=== PATIENT | female | born 1950 | race Caucasian/White ===

== ENCOUNTER 2017-10-03 12:27 | Inpatient (IN) | payer OTHER ==
--- OUTSIDE RECORDS SUMMARY | 2017-10-03 12:30 | XMS REPORT ---
:1950 Author Organization [employer] Care Team Providers Name Role Phone Rocky Shoemakerh Provider Role Unavailable Allergies, Adverse Reactions, Alerts Substance Reaction Event Type N.K.D.A. Info Not Available Non Drug Allergy Problems Problem Type Condition Code Onset Dates Condition Status Assessment Controlled type 2 diabetes mellitus E11.9 Active without complication, without long-term current use of insulin Problem Rheumatoid arthritis involving M06.9 Active multiple sites, unspecified rheumatoid factor presence Problem Controlled type 2 diabetes mellitus E11.9 Active without complication, without long-term current use of insulin Problem HTN (hypertension), benign I10 Active Problem Mixed hyperlipidemia E78.2 Active Problem Venous insufficiency I87.2 Active Problem Gout, unspecified cause, unspecified M10.9 Active chronicity, unspecified site Problem Hypothyroidism, unspecified type E03.9 Active Problem Malignant neoplasm of right ovary C56.1 Active Problem Malignant neoplasm of left ovary C56.2 Active Assessment Malignant neoplasm of left ovary C56.2 Active Assessment Malignant neoplasm of right ovary C56.1 Active Assessment Rheumatoid arthritis involving M06.9 Active multiple sites, unspecified rheumatoid factor presence Assessment Hypothyroidism, unspecified type E03.9 Active Assessment Venous insufficiency I87.2 Active Assessment Mixed hyperlipidemia E78.2 Active Assessment Gout, unspecified cause, unspecified M10.9 Active chronicity, unspecified site Assessment HTN (hypertension), benign I10 Active Medications Medication Code Code Instructions Start End Status Dosage System Date Date Metronidazole [facility] 78962958464 0.75 % Active 1 application Externally to affected Twice a day area Minocycline-Acne NDC 0 Active not defined Care Products [place] 3 ND 79508319295 1000 MG Orally Active 1 capsule Once a day Metformin HCl ND 76039102255 500 MG Orally Active 1 tablet with BID a meal Levothyroxine ND 38090237352 112 MCG Orally Active 1 tablet on Sodium Once a day an empty stomach in the morning Baclofen ND 32825891481 10 MG Orally Active 1 tablet with Three times a food or milk day Allopurinol ND 09756270010 300 MG Orally Active 1 tablet Once a day Folic Acid [facility] 11107677070 1 MG Orally Active 1 tablet Once a day Gabapentin [facility] 19379458684 300 MG Orally Active 1 capsule Once a day before bedtime Pravastatin [facility] 95783182214 80 MG Orally Active 1 tablet Sodium Once a day Lisinopril-Hydroc [facility] 49780566916 20-25 MG Active 1 tablet hlorothiazide Orally Once a day Furosemide [facility] 75484882888 40 MG Orally Active 1 tablet Once a day Magnesium [facility] 98268842434 500 MG Orally Active 1 tablet with Once a day a meal Aspirin 81 [facility] 59778815543 81 MG Orally Active 1 tablet Once a day Duloxetine HCl [facility] 26827810852 30 MG Orally Active 1 capsule Once a day Spironolactone [facility] 68511590391 25 MG Orally Active 1 tablet with Once a day food Vitamin D [facility] 25868656424 1000 UNIT Active 1 capsule (Cholecalciferol) Orally Once a day Results No Known Results Summary Purpose eClinicalWorks Submission
[2017-10-03] MEDS ORDERED: NA CHLORIDE 0.9% 500 ML ONE (15:27)
[2017-10-03 15:50] LABS: Absolute Monocytes 0.3 K/uL (0.1-1.3); Absolute Neutrophil 0.3 K/uL (1.8-8.0); Basophils % 0.3 % (0-1.3); Eosinophils % 6.2 % (0-4.4); Hematocrit 29.3 % (36.0-45.0); Lymphocytes % 60.2 % (15.3-44.8); MCV 101.9 fL (80-100); MPV 9.9 fL (7.6-11.3); Monocytes % 18.3 % (3.3-12.3); RBC Red Blood Cell Count 2.88 M/uL (3.86-4.86)
[2017-10-03 16:04] LABS: Potassium 4.4 mEq/L (3.6-5.0)
[2017-10-03 16:10] LABS: Albumin 3.9 g/dL (3.2-5.5); Bilirubin Direct 0.1 mg/dL (0-0.2); Bilirubin Total 0.6 mg/dL (0.3-1.2); Protein, Total 7.1 g/dL (6.0-8.3)
[2017-10-03] MEDS ORDERED: ONDANSETRON 4 MG/2 ML VIAL ONE (16:30)
[2017-10-03 17:18] LABS: Urine White Blood Cell Casts OK
[2017-10-03 17:19] LABS: Anisocytosis 1+; Blood Morphology Comment NOTED (NOT SEEN); Hypochromasia 1+; Platelet Estimate ADEQ
[2017-10-03] MEDS ORDERED: NA CHLORIDE 0.9% 50 ML IV ONE (18:18)
[2017-10-03] MEDS ORDERED: CEFTRIAXONE 1000 MG/VIAL ONE (18:18)
[2017-10-03] MEDS ORDERED: NA CHLORIDE 0.9% 250 ML ONE (19:08)
[2017-10-03 21:08] LABS: Urine Blood NEGATIVE (NEG); Urine Glucose NEGATIVE (NEG); Urine Protein TRACE (NEG); Urine Specific Gravity 1.015 (1.005-1.030)
--- NOTE | 2017-10-03 21:14 | EDPHYS ---
Physician Documentation [facility] Name: Maria Del Carmen Carlisle Age: 67 yrs Sex: Female : 1950 Arrival Date: 10/03/2017 Time: 12:33 Bed 16 Private MD: ED Physician Darren Stafford HPI: 10/03 18:03 This 67 yrs old Female presents to ER via Wheelchair with complaints of kdr Abdominal Pain, Diarrhea. 18:03 The patient presents to the emergency department with nausea, that is mild. Onset: The kdr symptoms/episode began/occurred gradually. 18:04 Possible causes: unknown. The symptoms are aggravated by nothing. The symptoms are kdr alleviated by nothing. Associated signs and symptoms: Pertinent positives: abdominal pain. Severity of symptoms: At their worst the symptoms were mild in the emergency department the symptoms are unchanged. The patient has not experienced similar symptoms in the past. The patient has not recently seen a physician. Historical: - Allergies: 12:37 Codeine (Vomiting); hb - Home Meds: 10/04 07:00 chemotherapy [Active]; Metformin Oral [Active]; levothyroxine oral [Active]; rb1 Allopurinol Oral [Active]; gabapentin oral oral [Active]; - PMHx: 10:29 ovarian CA; ss 07:00 Hypothyroidism; back pain; brain aneurysm; rb1 - PSHx: 07:00 ovaries; fallopian tubes; brain; Knee surgery; rb1 - Immunization history:: Adult Immunizations up to date. - Social history:: Smoking status: Patient/guardian denies using tobacco. - Ebola Screening: : No symptoms or risks identified at this time. ROS: 10/03 18:04 Constitutional: Negative for fever, chills, and weight loss, Eyes: Negative for injury, kdr pain, redness, and discharge, ENT: Negative for injury, pain, and discharge, Neck: Negative for injury, pain, and swelling, Cardiovascular: Negative for chest pain, palpitations, and edema, Respiratory: Negative for shortness of breath, cough, wheezing, and pleuritic chest pain, Back: Negative for injury and pain, : Negative for injury, bleeding, discharge, and swelling, MS/Extremity: Negative for injury and deformity, Skin: Negative for injury, rash, and discoloration, Psych: Negative for depression, anxiety, suicide ideation, homicidal ideation, and hallucinations, Allergy/Immunology: Negative for hives, rash, and allergies, Endocrine: Negative for neck swelling, polydipsia, polyuria, polyphagia, and marked weight changes, Hematologic/Lymphatic: Negative for swollen nodes, abnormal bleeding, and unusual bruising. Abdomen/GI: Positive for abdominal pain, nausea, Negative for vomiting, abdominal distension, anorexia, dysphagia, hematemesis, black/tarry stool, rectal pain, rectal bleeding, bowel incontinence. Neuro: Positive for headache, weakness, Negative for altered mental status, dizziness, gait disturbance, seizure activity, speech changes, syncope, near syncope, tingling, tinnitus, tremor, visual changes. Exam: 18:04 Constitutional: This is a well developed, well nourished patient who is awake, alert, kdr and in no acute distress. Head/Face: Normocephalic, atraumatic. Eyes: Pupils equal round and reactive to light, extra-ocular motions intact. Lids and lashes normal. Conjunctiva and sclera are non-icteric and not injected. Cornea within normal limits. Periorbital areas with no swelling, redness, or edema. Neck: Trachea midline, no thyromegaly or masses palpated, and no cervical lymphadenopathy. Supple, full range of motion without nuchal rigidity, or vertebral point tenderness. No Meningismus. Chest/axilla: Normal chest wall appearance and motion. Nontender with no deformity. No lesions are appreciated. Cardiovascular: Regular rate and rhythm with a normal S1 and S2. No gallops, murmurs, or rubs. Normal PMI, no JVD. No pulse deficits. Respiratory: Lungs have equal breath sounds bilaterally, clear to auscultation and percussion. No rales, rhonchi or wheezes noted. No increased work of breathing, no retractions or nasal flaring. Back: No spinal tenderness. No costovertebral tenderness. Full range of motion. Skin: Warm, dry with normal turgor. Normal color with no rashes, no lesions, and no evidence of cellulitis. MS/ Extremity: Pulses equal, no cyanosis. Neurovascular intact. Full, normal range of motion. Neuro: Awake and alert, GCS 15, oriented to person, place, time, and situation. Cranial nerves II-XII grossly intact. Motor strength 5/5 in all extremities. Sensory grossly intact. Cerebellar exam normal. Normal gait. Psych: Awake, alert, with orientation to person, place and time. Behavior, mood, and affect are within normal limits. 18:04 Abdomen/GI: Inspection: obese Bowel sounds: active, diminished, in all quadrants, Palpation: soft, mild abdominal tenderness, in all quadrants. Vital Signs: 12:37 BP 103 / 60; Pulse 85; Resp 20; Temp 97.6; Pulse Ox 100% on R/A; Weight 104.33 kg; hb Height 5 ft. 3 in. (160.02 cm); Pain 5/10; 17:06 BP 114 / 53; Pulse 82; Resp 16; Pulse Ox 97% on R/A; mb3 18:00 BP 112 / 51; Pulse 82; Resp 18; Pulse Ox 99% on R/A; mb3 19:00 BP 126 / 59; Pulse 85; Resp 18; Pulse Ox 97% on R/A; mb3 20:00 BP 114 / 61; Pulse 78; Resp 18; Pulse Ox 95% on R/A; mb3 23:30 BP 105 / 50; Pulse 84; Resp 18; Pulse Ox 97% on R/A; mb3 06/12 01:00 BP 105 / 50; Pulse 72; Resp 18 S; Pulse Ox 94% on R/A; bs1 02:00 BP 111 / 45; Pulse 78; Resp 18 S; Pulse Ox 98% on R/A; bs1 03:00 BP 112 / 47; Pulse 78; Resp 17; Pulse Ox 95% on R/A; bs1 04:00 BP 109 / 51; Pulse 78; Resp 18 S; Pulse Ox 95% on R/A; bs1 05:00 BP 121 / 49; Pulse 76; Resp 16; Pulse Ox 97% on R/A; bs1 06:00 BP 118 / 50; Pulse 76; Resp 16 S; Temp 97.8(O); Pulse Ox 95% on R/A; bs1 07:00 BP 113 / 56; Pulse 75; Resp 19; Pulse Ox 97% on R/A; Pain 6/10; rb1 08:28 BP 123 / 53; Pulse 73; Resp 20; Pulse Ox 94% on R/A; mh5 10:03 BP 116 / 76; Pulse 91; Resp 17; Pulse Ox 98% on R/A; mh5 11:00 BP 119 / 61; Pulse 102; Resp 19; Pulse Ox 98% on R/A; rb1 12:01 BP 120 / 72; Pulse 74; Resp 18; Pulse Ox 97% on R/A; mh5 13:48 BP 108 / 58; Pulse 76; Resp 17; Pulse Ox 95% on R/A; mh5 14:39 BP 120 / 66; Pulse 99; Resp 18; Pulse Ox 99% ; rb1 10/03 12:37 Body Mass Index 40.74 (104.33 kg, 160.02 cm) hb MDM: 10/03 18:04 Data reviewed: vital signs, nurses notes. Counseling: I had a detailed discussion with [facility] the patient and/or guardian regarding: the historical points, exam findings, and any diagnostic results supporting the discharge/admit diagnosis, lab results, radiology results. Physician consultation:. 21:14 Patient medically screened. [facility] 10/03 15:20 Order name: Basic Metabolic Panel; Complete Time: 17:00 [facility] 10/03 15:20 Order name: CBC with Diff; Complete Time: 17:28 [facility] 10/03 20:32 Interpretation: WBC 1.7. [facility] 10/03 15:20 Order name: Creatinine for Radiology; Complete Time: 17:00 [facility] 10/03 15:20 Order name: Hepatic Function; Complete Time: 17:00 [facility] 10/03 15:20 Order name: Lipase; Complete Time: 17:00 [facility] 10/03 16:06 Order name: CBC Smear Scan; Complete Time: 17:28 EDMS 10/03 18:01 Order name: Blood Culture Adult (2) [facility] 10/03 18:01 Order name: Urine Culture [facility] 10/03 19:08 Order name: Urine Dipstick--Ancillary (enter results); Complete Time: 12:08 ms 10/04 12:11 Order name: CBC with Diff [facility] 10/04 12:11 Order name: Comprehensive Metabolic Panel [facility] 10/03 15:20 Order name: IV Saline Lock; Complete Time: 19:33 [facility] 10/03 15:20 Order name: Labs collected and sent; Complete Time: 19:34 [facility] 10/03 15:20 Order name: Urine Dipstick-Ancillary (obtain specimen); Complete Time: 19:34 [facility] 10/04 08:46 Order name: Diet Regular; Complete Time: 08:47 10/04 11:33 Order name: Diet Regular; Complete Time: 11:33 [facility] 10/04 12:11 Order name: CT Stone Protocol [facility] 10/04 12:26 Order name: CONS Physician Consult EDMS 10/03 17:27 Order name: PO challenge; Complete Time: 01:19 kdr 10/03 18:26 Order name: Straight Cath - Urine; Complete Time: 18:26 kr2 Administered Medications: 15:30 Drug: NS 0.9% 500 ml Route: IV; Rate: bolus; Site: right antecubital; mb3 10/04 06:03 Follow up: IV Status: Completed infusion bs1 10/03 17:35 Drug: Zofran 4 mg Route: IVP; Site: right antecubital; mb3 23:42 Follow up: Response: No adverse reaction mb3 19:15 Drug: Rocephin - (cefTRIAXone) 1 grams Route: IVPB; Infused Over: 30 mins; Site: right mb3 antecubital; 10/04 06:02 Follow up: IV Status: Completed infusion bs1 10/03 23:30 Drug: Flagyl 500 mg Volume: 100 ml; Route: IVPB; Rate: 200 ml/hr; Infused Over: 30 mb3 mins; Site: right antecubital; 10/04 06:01 Follow up: IV Status: Completed infusion bs1 11:38 Drug: Zofran 4 mg Route: IVP; Site: right antecubital; rb1 12:00 Follow up: Response: No adverse reaction; Nausea is decreased rb1 12:50 Drug: NS 0.9% 500 ml Route: IV; Rate: bolus; Site: right antecubital; rb1 15:22 Follow up: IV Status: Infusion continued upon admission rb1 12:50 Drug: Rocephin - (cefTRIAXone) 1 grams Route: IVPB; Infused Over: 30 mins; Site: right rb1 antecubital; 13:20 Follow up: Response: No adverse reaction; IV Status: Completed infusion rb1 12:50 Drug: Phenergan 12.5 mg Route: IVP; Site: right antecubital; rb1 13:09 Follow up: Response: No adverse reaction; Nausea is decreased rb1 18:38 Not Given (Bolus was infusing upon admission): NS 0.9% 1000 ml IV at 125 ml/hr rb1 continuous Disposition: 10/04/17 12:14 Hospitalization ordered by Kobe Fisher for Inpatient Admission. Preliminary diagnosis are Nausea and vomiting, Abdominal tenderness, Cystitis, Neutropenia, Anemia, unspecified. - Bed requested for Telemetry/MedSurg (Inpatient). - Status is Inpatient Admission. rb1 - Condition is Fair. - Problem is new. - Symptoms have improved. UTI on Admission? Yes Signatures: Dispatcher [facility] Toshia Henry, RN RN Darren Wellington MD MD cha Rittger, Kevin, MD MD [facility] Shara Rowley RN RN Lala Anderson RN RN Malini Cabello RN RN rb1 Colleen Moore RN RN Kamala Bright RN RN kr2 Talat Oliveira RN RN mb3 Federica Sanches RN bs1 Corrections: (The following items were deleted from the chart) 10/03 19:01 15:49 URINE DIPSTICK--ANCILLARY+U.LAB.BRZ ordered. [facility] 19:01 16:04 URINE DIPSTICK--ANCILLARY+U.LAB.BRZ reviewed. [facility] 19:02 15:20 UA MICROSCOPIC+U.LAB.BRZ ordered. [facility] 19:02 15:54 Urine Culture ordered. [facility] 19:02 16:04 UA MICROSCOPIC+U.LAB.BRZ reviewed. [facility] 10/04 12:13 10/03 21:14 10/03/2017 21:14 Transfer ordered to Other Acute Care Facility. Diagnosis kim is Neutropenia; Urinary tract infection, site not specified. Reason for transfer: Higher level of care. Accepting physician is Accepting MD. Condition is Fair. Problem is new. Symptoms have improved. [facility] 10/04 12:30 12:14 Hospitalization Ordered by Kobe Fisher DO for Inpatient Admission. Preliminary kim diagnosis is Nausea and vomiting; Abdominal tenderness; Cystitis. Bed requested for Telemetry/MedSurg (Inpatient). Status is Inpatient Admission. Condition is Fair. Problem is new. Symptoms have improved. UTI on Admission? Yes. kim 14:25 12:30 10/04/2017 12:14 Hospitalization Ordered by Kobe Fisher DO for Inpatient dw Admission. Preliminary diagnosis is Nausea and vomiting; Abdominal tenderness; Cystitis; Neutropenia; Anemia, unspecified. Bed requested for Telemetry/MedSurg (Inpatient). Status is Inpatient Admission. Condition is Fair. Problem is new. Symptoms have improved. UTI on Admission? Yes. [facility] 15:22 14:25 10/04/2017 12:14 Hospitalization Ordered by Kobe Fisher DO for Inpatient rb1 Admission. Preliminary diagnosis is Nausea and vomiting; Abdominal tenderness; Cystitis; Neutropenia; Anemia, unspecified. Bed requested for Telemetry/MedSurg (Inpatient). Status is Inpatient Admission. Condition is Fair. Problem is new. Symptoms have improved. UTI on Admission? Yes. dw
--- NOTE | 2017-10-03 21:14 | ER ---
Nurse's Notes [facility] Name: Maria Del Carmen Carlisle Age: 67 yrs Sex: Female : 1950 Arrival Date: 10/03/2017 Time: 12:33 Bed 16 Private MD: Diagnosis: Nausea and vomiting;Abdominal tenderness;Cystitis;Neutropenia;Anemia, unspecified Presentation: 10/03 12:33 Presenting complaint: Patient states: N/V/D and abdominal pain x 1 week. Pt is being hb treated at [facility] for ovarian CA, had last round of chemo Wednesday 09/27. Transition of care: patient was not received from another setting of care. Onset of symptoms was September 27, 2017. Risk Assessment: Do you want to hurt yourself or someone else? Patient reports no desire to harm self or others. Initial Sepsis Screen: Does the patient meet any 2 criteria? No. Patient's initial sepsis screen is negative. Does the patient have a suspected source of infection? No. Patient's initial sepsis screen is negative. Care prior to arrival: None. 12:33 Method Of Arrival: Wheelchair hb 12:33 Acuity: MAYRA 3 hb Historical: - Allergies: 12:37 Codeine (Vomiting); hb - Home Meds: 10/04 07:00 chemotherapy [Active]; Metformin Oral [Active]; levothyroxine oral [Active]; rb1 Allopurinol Oral [Active]; gabapentin oral oral [Active]; - PMHx: 10:29 ovarian CA; ss 07:00 Hypothyroidism; back pain; brain aneurysm; rb1 - PSHx: 07:00 ovaries; fallopian tubes; brain; Knee surgery; rb1 - Immunization history:: Adult Immunizations up to date. - Social history:: Smoking status: Patient/guardian denies using tobacco. - Ebola Screening: : No symptoms or risks identified at this time. Screenin/11 16:25 Abuse screen: Denies threats or abuse. Nutritional screening: No deficits noted. mb3 Tuberculosis screening: No symptoms or risk factors identified. Fall Risk No fall in past 12 months (0 pts). Secondary diagnosis (15 points) IV access (20 points). Ambulatory Aid- Crutches/Cane/Walker (15 pts). Gait- Weak (10 pts.). Mental Status- Oriented to own ability (0 pts). Total Epperson Fall Scale indicates High Risk Score (45 or more points). Side Rails Up X 2 Placed Close to Nursing Station Frequent Obs/Assessments Occuring Family Present and informed to notify staff if the need to leave the bedside As available patient and family educated on Fall Prevention Program and Strategies. Assessment: 16:02 Reassessment: Dr. Mehta notified of critical lab value WBC 1.7. ss 17:00 General: Appears uncomfortable, ill, obese, well groomed, Behavior is calm, mb3 cooperative, appropriate for age. Pain: Complains of pain in back and abdomen. Neuro: Level of Consciousness is awake, alert, obeys commands, Oriented to person, place, time, situation, Appropriate for age. Cardiovascular: No deficits noted. Heart tones present Capillary refill < 3 seconds Patient's skin is warm and dry. Pulses are palpable in right radial artery, right dorsalis pedis artery, left radial artery and left dorsalis pedis artery. Respiratory: Airway is patent Respiratory effort is even, unlabored, Respiratory pattern is regular, symmetrical, Breath sounds are clear bilaterally. GI: Bowel sounds present X 4 quads. Abd is soft Abdomen is tender to palpation X 4 quads. Reports upper abdominal pain, nausea, vomiting. : Urine is cloudy. Derm: No signs and/or symptoms reported regarding the dermatologic system. 19:00 Reassessment: No changes from previously documented assessment. Patient and/or family mb3 updated on plan of care and expected duration. Pain level reassessed. Patient is alert, oriented x 3, equal unlabored respirations, skin warm/dry/pink. 21:00 Reassessment: No changes from previously documented assessment. Patient and/or family mb3 updated on plan of care and expected duration. Pain level reassessed. Patient is alert, oriented x 3, equal unlabored respirations, skin warm/dry/pink. 22:59 Reassessment: Dr Mehta called and requested pt be given Flagyl iv while we await fc transfer. 23:00 Reassessment: No changes from previously documented assessment. Patient and/or family mb3 updated on plan of care and expected duration. Pain level reassessed. Patient is alert, oriented x 3, equal unlabored respirations, skin warm/dry/pink. 10/04 00:18 Reassessment: Unable to obtain a bed at [facility]. Dr Mehta states that he fc will attempt again in the am if ok with family. Discussed with pt and daughter who agree with this. Pt to be transferred to regular hospital bed for comfort and [facility] contacted in the morning. 01:00 Reassessment: Report received from ORQUIDEA Gilliland. bs1 01:00 General: Appears in no apparent distress. uncomfortable, ill, obese, well groomed, bs1 Behavior is calm, cooperative, appropriate for age, quiet. Pain: Complains of pain in abdomen and back. Neuro: Level of Consciousness is awake, alert, obeys commands, Oriented to person, place, time, situation, Appropriate for age. Cardiovascular: Denies chest pain, Heart tones S1 S2 present Capillary refill < 3 seconds Patient's skin is warm and dry. Pulses are palpable in left dorsalis pedis artery and left radial artery and right dorsalis pedis artery and right radial artery. Respiratory: Airway is patent Trachea midline Respiratory effort is even, unlabored, Respiratory pattern is regular, symmetrical, Breath sounds are clear bilaterally. GI: Abdomen is round Bowel sounds present X 4 quads. Abd is soft Abdomen is tender to palpation X 4 quads. Reports upper abdominal pain, nausea, vomiting. : Urine is cloudy. Derm: No signs and/or symptoms reported regarding the dermatologic system. Musculoskeletal: Circulation, motion, and sensation intact. Capillary refill < 3 seconds, Range of motion: intact in all extremities. 01:30 Reassessment: Patients daughter left for the night, will be back in the morning, left bs1 number to call if anything happens, at [phone]. 04:00 Reassessment: Patient appears in no apparent distress at this time. Patient and/or bs1 family updated on plan of care and expected duration. Pain level reassessed. Patient is alert, oriented x 3, equal unlabored respirations, skin warm/dry/pink. Reverse isolation sign on door. 04:30 Reassessment: Patient appears in no apparent distress at this time. Patient and/or bs1 family updated on plan of care and expected duration. Pain level reassessed. Patient is alert, oriented x 3, equal unlabored respirations, skin warm/dry/pink. Patient states feeling better. Patient states symptoms have improved. 05:45 Reassessment: Patient appears in no apparent distress at this time. Patient and/or bs1 family updated on plan of care and expected duration. Pain level reassessed. Patient is alert, oriented x 3, equal unlabored respirations, skin warm/dry/pink. Patient denies pain at this time. 06:15 Reassessment: Patient sleeping. No further needs at this time. bs1 07:00 General: Appears in no apparent distress. comfortable, Behavior is calm, cooperative. rb1 Pain: Complains of pain in abdomen Pain currently is 6 out of 10 on a pain scale. Neuro: Level of Consciousness is awake, alert, obeys commands, Oriented to person, place, time, situation. Cardiovascular: Capillary refill < 3 seconds is brisk in bilateral fingers. Respiratory: Airway is patent Respiratory effort is even, unlabored, Respiratory pattern is regular, symmetrical. Derm: Skin is pink, warm \T\ dry. 07:00 General: pt. refused pain medication at this time.. rb1 08:00 Reassessment: Patient appears in no apparent distress at this time. Patient and/or rb1 family updated on plan of care and expected duration. Pain level reassessed. Patient is alert, oriented x 3, equal unlabored respirations, skin warm/dry/pink. 08:12 Reassessment: Carolina from [facility] called to inform us that the admission approval rb1 is still pending. Notified provider and Nata, community relations specialist. 08:45 Reassessment: daughter at bedside. Pt. and family updated on POC. rb1 08:55 Reassessment: Called [employer] and left a message requesting a new bed because rb1 the HOB will not elevate on her current bed. 10:16 Reassessment: Dr. [facility] spoke with Akua, patient's daugher who come to the ss agreement to go ahead and admit patient here and continue to attempt to transfer to continuity of care to [facility]. Still awaiting administrative approval from [facility] who also reports they are currently on diversion. 11:15 Reassessment: Patient appears in no apparent distress at this time. No changes from rb1 previously documented assessment. family at bedside. 12:13 Reassessment: Patient appears in no apparent distress at this time. Patient and/or rb1 family updated on plan of care and expected duration. Pain level reassessed. Patient is alert, oriented x 3, equal unlabored respirations, skin warm/dry/pink. Family at bedside. 13:10 Reassessment: Patient appears in no apparent distress at this time. No changes from rb1 previously documented assessment. 14:10 Reassessment: Patient appears in no apparent distress at this time. Patient and/or rb1 family updated on plan of care and expected duration. Pain level reassessed. Patient is alert, oriented x 3, equal unlabored respirations, skin warm/dry/pink. pt./family updated on POC. 14:47 Reassessment: Called report to ORQUIDEA Montes. Information from the [facility] was given. All rb1 questions asked and answered. 15:09 Reassessment: Patient appears in no apparent distress at this time. Patient and/or rb1 family updated on plan of care and expected duration. Pain level reassessed. Patient is alert, oriented x 3, equal unlabored respirations, skin warm/dry/pink. Started a new 22 g L AC; pt. tolerated well. Vital Signs: 10/03 12:37 BP 103 / 60; Pulse 85; Resp 20; Temp 97.6; Pulse Ox 100% on R/A; Weight 104.33 kg; hb Height 5 ft. 3 in. (160.02 cm); Pain 5/10; 17:06 BP 114 / 53; Pulse 82; Resp 16; Pulse Ox 97% on R/A; mb3 18:00 BP 112 / 51; Pulse 82; Resp 18; Pulse Ox 99% on R/A; mb3 19:00 BP 126 / 59; Pulse 85; Resp 18; Pulse Ox 97% on R/A; mb3 20:00 BP 114 / 61; Pulse 78; Resp 18; Pulse Ox 95% on R/A; mb3 23:30 BP 105 / 50; Pulse 84; Resp 18; Pulse Ox 97% on R/A; mb3 06/12 01:00 BP 105 / 50; Pulse 72; Resp 18 S; Pulse Ox 94% on R/A; bs1 02:00 BP 111 / 45; Pulse 78; Resp 18 S; Pulse Ox 98% on R/A; bs1 03:00 BP 112 / 47; Pulse 78; Resp 17; Pulse Ox 95% on R/A; bs1 04:00 BP 109 / 51; Pulse 78; Resp 18 S; Pulse Ox 95% on R/A; bs1 05:00 BP 121 / 49; Pulse 76; Resp 16; Pulse Ox 97% on R/A; bs1 06:00 BP 118 / 50; Pulse 76; Resp 16 S; Temp 97.8(O); Pulse Ox 95% on R/A; bs1 07:00 BP 113 / 56; Pulse 75; Resp 19; Pulse Ox 97% on R/A; Pain 6/10; rb1 08:28 BP 123 / 53; Pulse 73; Resp 20; Pulse Ox 94% on R/A; mh5 10:03 BP 116 / 76; Pulse 91; Resp 17; Pulse Ox 98% on R/A; mh5 11:00 BP 119 / 61; Pulse 102; Resp 19; Pulse Ox 98% on R/A; rb1 12:01 BP 120 / 72; Pulse 74; Resp 18; Pulse Ox 97% on R/A; mh5 13:48 BP 108 / 58; Pulse 76; Resp 17; Pulse Ox 95% on R/A; mh5 14:39 BP 120 / 66; Pulse 99; Resp 18; Pulse Ox 99% ; rb1 10/03 12:37 Body Mass Index 40.74 (104.33 kg, 160.02 cm) hb ED Course: 10/03 12:33 Patient arrived in ED. hb 12:36 Triage completed. hb 12:36 Arm band placed on left wrist. hb 14:55 Gee Mehta MD is Attending Physician. kdr 15:22 Talat Oliveira, ORQUIDEA is Primary Nurse. mb3 15:30 Inserted saline lock: 22 gauge in right antecubital area, using aseptic technique. mb3 Blood collected. 17:03 Patient has correct armband on for positive identification. Bed in low position. Call mb3 light in reach. Side rails up X 1. 18:26 Straight cath inserted, using sterile technique, Specimen obtained. Returned clear kr2 yellow urine. Patient tolerated well. 10/04 09:48 Called [facility] and spoke to Carolina the hospital is now diversion. Was told that ag no hospital beds available and even if administration approval was given she has to wait until a bed is available. Was advise to change the patient to inpatient until a bed came open. 12:08 Attending Physician role handed off by Gee Mehta MD [facility] 12:08 [facility] MD is Attending Physician. kim 12:13 Kobe Fisher DO is Hospitalizing Provider. kim 12:23 CT completed. Patient tolerated procedure well. Patient moved to CT via wheelchair. sw Patient moved back from CT. Patient moved back from radiology. 12:25 CT Stone Protocol In Process Unspecified. EDMS 15:09 Inserted saline lock: 22 gauge in left antecubital area, using aseptic technique. rb1 15:10 IV discontinued, intact, bleeding controlled, No redness/swelling at site. Pressure rb1 dressing applied, Right AC. 15:22 No provider procedures requiring assistance completed. rb1 Administered Medications: 10/03 15:30 Drug: NS 0.9% 500 ml Route: IV; Rate: bolus; Site: right antecubital; mb3 10/04 06:03 Follow up: IV Status: Completed infusion bs1 10/03 17:35 Drug: Zofran 4 mg Route: IVP; Site: right antecubital; mb3 23:42 Follow up: Response: No adverse reaction mb3 19:15 Drug: Rocephin - (cefTRIAXone) 1 grams Route: IVPB; Infused Over: 30 mins; Site: right mb3 antecubital; 10/04 06:02 Follow up: IV Status: Completed infusion bs1 10/03 23:30 Drug: Flagyl 500 mg Volume: 100 ml; Route: IVPB; Rate: 200 ml/hr; Infused Over: 30 mb3 mins; Site: right antecubital; 10/04 06:01 Follow up: IV Status: Completed infusion bs1 11:38 Drug: Zofran 4 mg Route: IVP; Site: right antecubital; rb1 12:00 Follow up: Response: No adverse reaction; Nausea is decreased rb1 12:50 Drug: NS 0.9% 500 ml Route: IV; Rate: bolus; Site: right antecubital; rb1 15:22 Follow up: IV Status: Infusion continued upon admission rb1 12:50 Drug: Rocephin - (cefTRIAXone) 1 grams Route: IVPB; Infused Over: 30 mins; Site: right rb1 antecubital; 13:20 Follow up: Response: No adverse reaction; IV Status: Completed infusion rb1 12:50 Drug: Phenergan 12.5 mg Route: IVP; Site: right antecubital; rb1 13:09 Follow up: Response: No adverse reaction; Nausea is decreased rb1 18:38 Not Given (Bolus was infusing upon admission): NS 0.9% 1000 ml IV at 125 ml/hr rb1 continuous Output: 11:45 Gastric: 150ml (Emesis); Total: 150ml. rb1 Outcome: 10/03 21:14 ER care complete, transfer ordered by . kdr 10/04 12:14 Decision to Hospitalize by Provider. kim 15:22 Patient left the ED. rb1 15:22 Admitted to Tele accompanied by tech, family with patient, via wheelchair, room 427, rb1 with chart, Report called to ORQUIDEA Montes 15:22 Condition: stable 15:22 Instructed on the need for admit. Signatures: Dispatcher [employer] EDMS [facility] MD MD cha Rittger, Kevin, MD MD kdr Chretien, Felicia, RN RN Lala Anderson, RN RN Angel Sullivan PA PA jr8 Nata Love Shannon sw Barber, Rebecca, RN RN rb1 Colleen Moore, RN Cely Lund Kamala Joaquin RN RN kr2 Federica Sanches RN RN bs1 Talat Oliveira RN RN mb3 Corrections: (The following items were deleted from the chart) 10/03 19:02 17:08 Urine Culture drawn and sent. jr8 [facility] 10/04 18:29 15:09 Inserted saline lock: 22 gauge in right antecubital area, using aseptic rb1 technique. rb1 18:32 14:10 Reassessment: Patient appears in no apparent distress at this time. Patient rb1 and/or family updated on plan of care and expected duration. Pain level reassessed. Patient is alert, oriented x 3, equal unlabored respirations, skin warm/dry/pink. rb1
[2017-10-03] MEDS ORDERED: METRONIDAZOLE 500mg IVPB 500 MG/100 ML BAG IV ONE (23:30)
[2017-10-04] MEDS ORDERED: ONDANSETRON 4 MG/2 ML VIAL ONE ×2 (11:42→12:44)
--- NOTE | 2017-10-04 12:41 | RAD REPORT ---
EXAM DESCRIPTION: CT - Stone Protocol - 10/04/2017 12:25 pm CLINICAL HISTORY: Flank pain. History of ovarian neoplasia. COMPARISON: None. TECHNIQUE: Axial images were obtained without oral or IV contrast. Lack of contrast limits solid org an and vascular assessment. The [id number] spans the entirety of the system partially obscuring uppermost abdomen and lung bases. Coronal reformatted images were obtained and reviewed. All CT scans are performed using dose optimization technique as appropriate and may include automated exposure control or mA/KV adjustment according to patient size. FINDINGS: The lower lung price are clear. Cholecystectomy clips. Imaged portions of the liver and spleen show no suspicious findings on non-contrast imaging. The panc reas and adrenal glands are normal Slight pericolonic inflammatory changes are noted in the left upper quadrant surrounding the splenic flexure the colon. No bowel obstruction, free air, free fluid or abscess. The appendix is not identified as a discrete s tructure, however, no secondary findings of appendicitis are identified. 11-12 mm lymph node is seen along the left pelvic sidewall. 6 mm right pelvic sidewall lymph node. No soft tissue implants seen. Several subcutaneous soft tissue implants in the anterior abdominal fat i s likely related to injections. IMPRESSION: Slight inflammation in the left upper quadrant pericolonic fat noted. A minimal colitis is possible. Pelvic sidewall lymph nodes as detailed. No comparison is available to assess stability.
[2017-10-04] MEDS ORDERED: NA CHLORIDE 0.9% 500 ML ONE (12:44)
[2017-10-04] MEDS ORDERED: CEFTRIAXONE/SWI 1gm 1 GM/10 ML SYR ONE (12:45)
[2017-10-04] MEDS ORDERED: ACETAMINOPHEN 500 MG TAB PO PRN (12:55)
[2017-10-04] MEDS ORDERED: PROMETHAZINE 25 MG/ML VIAL IV PRN (12:55)
[2017-10-04] MEDS ORDERED: SODIUM CHLORIDE 0.9% 10ML INJ IV PRN (12:55)
[2017-10-04] MEDS ORDERED: ONDANSETRON 4 MG/2 ML VIAL IV PRN (12:55)
--- NOTE | 2017-10-04 13:10 | P.HP ---
Certification for Inpatient Patient admitted to: Inpatient With expected LOS: >2 Midnights Patient will require the following post-hospital care: None Practitioner: I am a practitioner with admitting privileges, knowledge of patient current condition, hospital course, and medical plan of care. Services: Services provided to patient in accordance with Admission requirements found in Title 42 Section 412.3 of the Code of Federal Regulations Patient History Date of Service: 10/04/17 Primary Care Provider: Dr. Shoemaker; Oncology-[facility]-Dr. Ashleigh Garcia Reason for admission: Nausea, vomiting, abdominal pain History of Present Illness: 67-year-old female present emergency room with nausea, vomiting, diarrhea and abdominal pain. Patient has significant past medical history of ovarian cancer. Patient with nausea, vomiting, diarrhea and abdominal pain for over 1 week. This has gotten worse throughout the week. Patient came to the ER for evaluation yesterday. The patient was evaluated and found to have UTI. Patient also neutropenic with a white count of 1.7. Hemoglobin 9.5. Electrolytes showed no elevation in LFT and lipase. ER spoke to [facility] about transfer. The ER kept the patient as [facility] had no beds. Today the ER spoke to [facility] again. Still no bed available. Therefore the patient will be admitted for continuation of care until a bed is available and transfer can be complete. Today the patient still with some nausea. Patient appears dry. CT scan was done to further assess. Patient found to have left upper quadrant mild colitis. Pelvic lymph nodes noted. Lower lung price appeared clear. Urine culture pending shows Gram negative rods. Blood cultures pending. Allergies codeine Allergy (Verified 10/04/17 13:09) Nausea/Vomiting Home medications list reviewed: Yes - Past Medical/Surgical History Diabetic: No -: Ovarian cancer -: History of AVM with repair -: Brain surgery for AVM -: Hysterectomy -: Tubal ligation -: Right knee surgery -: Cholecystectomy Psychosocial/ Personal History: The patient is . She has 4 children. - Family History Father -: Cancer (Leukemia) Mother -: Cancer (Breast and lung cancer) - Social History Smoking Status: Never smoker Alcohol use: Yes CD- Drugs: No Caffeine use: Yes Place of Residence: Home Review of Systems General: Weakness, Malaise, Unremarkable Eyes: Unremarkable ENT: Unremarkable Respiratory: Unremarkable Cardiovascular: Light Headedness, As per HPI Gastrointestinal: Nausea, Vomiting, Abdominal Pain, Diarrhea, As per HPI Genitourinary: As per HPI Musculoskeletal: Unremarkable Integumentary: Unremarkable Neurological: Unremarkable Lymphatics: Unremarkable Physical Examination - Physical Exam General: Alert, In no apparent distress, Oriented x3, Cooperative HEENT: Atraumatic, Other (Dry mucous membranes. Patient with alopecia) Neck: Supple, No Thyromegaly Respiratory: Clear to auscultation bilaterally, Normal air movement Cardiovascular: Normal pulses, Regular rate/rhythm Gastrointestinal: Normal bowel sounds, Soft and benign, Non-distended, No masses , No rebound, No guarding, Tenderness (No significant pain to deep palpation.) Musculoskeletal: No erythema, No tenderness, No warmth Integumentary: No tenderness/swelling, No erythema, No warmth, No cyanosis Neurological: Normal speech, Normal strength at 5/5 x4 extr, Normal tone, Normal affect Lymphatics: No axilla or inguinal lymphadenopathy - Studies Laboratory Data (last 24 hrs) 10/03/17 15:32: Creatinine 0.97 10/03/17 15:32: WBC 1.7 L*, Hgb 9.5 L, Hct 29.3 L, Plt Count 158 10/03/17 15:32: Sodium 137, Potassium 4.4, BUN 17, Creatinine 0.99, Glucose 107 , Total Bilirubin 0.6, AST 16, ALT 20, Alkaline Phosphatase 85, Lipase 16 L Assessment and Plan - Problems (Diagnosis) (1) Colitis Current Visit: Yes Status: Acute Plan: CT scan shows mild colitis to the left upper quadrant. Will cover with cefepime and Flagyl. Will evaluate for C. diff colitis. Will continue IV antibiotic therapy and IV fluid hydration. Will monitor closely. Once a bed is available at [facility] then the patient can be transferred. (2) UTI (urinary tract infection) Current Visit: Yes Status: Acute Plan: Urine culture shows Gram negative rods. Blood cultures obtained. Will continue IV antibiotic therapy as above. Qualifiers: Urinary tract infection type: site unspecified Hematuria presence: without hematuria Qualified Code(s): N39.0 - Urinary tract infection, site not specified (3) Neutropenia Current Visit: Yes Status: Acute Plan: Patient with neutropenia. Likely from infection. Provide Neupogen. Will discontinue Neupogen once white count above 2.0. Case discussed with Oncology Qualifiers: Neutropenia type: due to infection Qualified Code(s): D70.3 - Neutropenia due to infection (4) Ovarian cancer Current Visit: Yes Status: Chronic Plan: Patient with ovarian cancer. Currently treated at [facility]. Qualifiers: Laterality: unspecified laterality Qualified Code(s): C56.9 - Malignant neoplasm of unspecified ovary (5) Dehydration Current Visit: Yes Status: Acute Plan: Will provide IV fluid bolus. Will continue IV fluids. Will monitor and adjust appropriately. Discharge Plan: Home Plan to discharge in: 48 Hours - Advance Directives Does patient have a Living Will: No Does patient have a Durable POA for Healthcare: No - Code Status/Comfort Care Code Status Assessed: Yes Time Spent Managing Pts Care (In Minutes): 55
[2017-10-04 13:18] LABS: Potassium 4.4 mEq/L (3.6-5.0)
[2017-10-04 13:21] LABS: Albumin 4.2 g/dL (3.2-5.5); Bilirubin Total 0.7 mg/dL (0.3-1.2); Protein, Total 7.8 g/dL (6.0-8.3)
[2017-10-04 13:35] LABS: Absolute Lymphocytes (CBC) 1.4 K/uL (0.7-4.9); Absolute Monocytes 0.8 K/uL (0.1-1.3); Absolute Neutrophil 0.7 K/uL (1.8-8.0); Basophils % 0.3 % (0-1.3); Eosinophils % 2.8 % (0-4.4); Hematocrit 31.8 % (36.0-45.0); Lymphocytes % 45.7 % (15.3-44.8); MCH 33.3 pg (27.0-35.0); MPV 10.5 fL (7.6-11.3); Monocytes % 26.4 % (3.3-12.3); RBC Red Blood Cell Count 3.15 M/uL (3.86-4.86)
[2017-10-04] MEDS: METRONIDAZOLE 500mg IVPB 500 MG/100 ML BAG IV SCH (17:44)
[2017-10-04] MEDS: NA CHLORIDE 0.9% 1,000 ML IV SCH (17:45)
[2017-10-04] MEDS: ENOXAPARIN 40 MG/0.4 ML SQ SCH (17:45)
[2017-10-04 20:14] LABS: Platelet Estimate ADEQ
[2017-10-04 20:16] LABS: Blood Morphology Comment NOT SEEN (NOT SEEN)
[2017-10-05] MEDS: METRONIDAZOLE 500mg IVPB 500 MG/100 ML BAG IV SCH ×3 (00:35→18:40)
[2017-10-05] MEDS: NA CHLORIDE 0.9% 1,000 ML IV SCH ×4 (00:36→20:42)
[2017-10-05 06:37] LABS: Absolute Neutrophil 1.9 K/uL (1.8-8.0); Basophils % 0.3 % (0-1.3); Eosinophils % 2.3 % (0-4.4); Hematocrit 27.7 % (36.0-45.0); Lymphocytes % 39.8 % (15.3-44.8); MCH 33.2 pg (27.0-35.0); MCV 101.1 fL (80-100); MPV 10.2 fL (7.6-11.3); Monocytes % 19.2 % (3.3-12.3); RBC Red Blood Cell Count 2.74 M/uL (3.86-4.86)
[2017-10-05 07:17] LABS: Magnesium 1.6 mg/dL (1.8-2.5)
[2017-10-05] MEDS ORDERED: MAGNESIUM SULFATE 1 gm IVPB 1 GM/100 ML BAG IV ONE (07:52)
[2017-10-05] MEDS ORDERED: CEFEPIME/SWI 1gm 1 GM/10 ML SYR IV SCH (09:00)
[2017-10-05] MEDS ORDERED: CEFTRIAXONE/SWI 1gm 1 GM/10 ML SYR IV SCH (09:00)
[2017-10-05] MEDS ORDERED: CEFEPIME 1 GM/VIAL IV SCH (09:00)
[2017-10-05] MEDS ORDERED: TBO-FILGRASTIM 300 MCG/0.5 ML SYR SQ SCH (09:00)
[2017-10-05] MEDS ORDERED: MAGNESIUM CITRATE 300 ML BOT PO SCH (10:00)
[2017-10-05] MEDS: PANTOPRAZOLE 40 MG INJ IVP SCH (10:08)
[2017-10-05] MEDS: ENOXAPARIN 40 MG/0.4 ML SQ SCH (18:41)
[2017-10-05] MEDS: CEFEPIME/SWI 2gm 2 GM/20 ML SYR IV SCH (20:41)
[2017-10-06] MEDS: METRONIDAZOLE 500mg IVPB 500 MG/100 ML BAG IV SCH ×2 (00:24→09:20)
[2017-10-06 04:27] LABS: Absolute Lymphocytes (CBC) 2.6 K/uL (0.7-4.9); Absolute Monocytes 0.9 K/uL (0.1-1.3); Absolute Neutrophil 4.4 K/uL (1.8-8.0); Basophils % 0.2 % (0-1.3); Eosinophils % 1.3 % (0-4.4); Hematocrit 24.5 % (36.0-45.0); Lymphocytes % 32.8 % (15.3-44.8); MCV 101.1 fL (80-100); MPV 10.4 fL (7.6-11.3); Magnesium 1.8 mg/dL (1.8-2.5); Monocytes % 11.6 % (3.3-12.3); Potassium 4.3 mEq/L (3.6-5.0); RBC Red Blood Cell Count 2.42 M/uL (3.86-4.86)
[2017-10-06] MEDS ORDERED: MAGNESIUM SULFATE 1 gm IVPB 1 GM/100 ML BAG IV ONE (04:58)
[2017-10-06] MEDS: NA CHLORIDE 0.9% 1,000 ML IV SCH (05:00)
[2017-10-06] MEDS: CEFEPIME/SWI 2gm 2 GM/20 ML SYR IV SCH (09:14)
[2017-10-06] MEDS: PANTOPRAZOLE 40 MG INJ IVP SCH (09:15)
--- NOTE | 2017-10-06 13:20 | P.SSS ---
Patient History Date of Service: 10/06/17 Primary Care Provider: Dr. Shoemaker; Oncology-MD [place]-Dr. Ashleigh Garcia Reason for admission: Nausea, vomiting, abdominal pain Allergies codeine Allergy (Verified 10/04/17 13:09) Nausea/Vomiting Home Medications: Allopurinol [Zyloprim*] 300 mg PO DAILY 10/04/17 Baclofen [Lioresal*] 10 mg PO TID 10/04/17 Diclofenac Na [Voltaren D.r*] 75 mg PO DAILY PRN 10/04/17 Duloxetine [Cymbalta *] 30 mg PO DAILY 10/04/17 Folic Acid 1 mg PO DAILY 10/04/17 Furosemide [Lasix*] 40 mg PO DAILY 10/04/17 Gabapentin [Gralise] 300 mg PO DAILY 10/04/17 Levothyroxine [Synthroid*] 112 mcg PO [id number] 10/04/17 Lisinopril/Hydrochlorothiazide [Lisinopril-Hctz 20-12.5 mg Tab] 1 each PO DAILY 10/04/17 Metformin HCl [Glucophage*] 500 mg PO BIDWM 10/04/17 Pravastatin Sodium [Pravachol] 80 mg PO DAILY 10/04/17 Spironolactone [Aldactone*] 25 mg PO DAILY WITH BREAKFAST 10/04/17 Levofloxacin [Levaquin] 500 mg PO DAILY #10 tablet 10/06/17 metroNIDAZOLE [Flagyl] 500 mg PO Q8H #30 tablet 10/06/17 - Past Medical/Surgical History Diabetic: No -: Ovarian cancer -: History of AVM with repair -: diabetes -: hypothyroidism -: Brain surgery for AVM -: Hysterectomy -: Tubal ligation -: Right knee surgery -: Cholecystectomy Psychosocial/ Personal History: The patient is . She has 4 children. - Family History Father -: Cancer (Leukemia) Notes: leukemia Mother -: Cancer (Breast and lung cancer) - Social History Smoking Status: Never smoker Alcohol use: Yes CD- Drugs: No Caffeine use: Yes Place of Residence: Home Review of Systems 10-point ROS is otherwise unremarkable Physical Examination - Vital Signs Temperature: 97.6 F Blood Pressure: 108/54 Pulse: 69 Respirations: 18 Pulse Ox (%): 97 - Physical Exam General: Alert, In no apparent distress HEENT: Atraumatic, PERRLA, Mucous membr. moist/pink, EOMI, Sclerae nonicteric Neck: Supple, 2+ carotid pulse no bruit, No LAD, Without JVD or thyroid abnormality Respiratory: Clear to auscultation bilaterally, Normal air movement Cardiovascular: Regular rate/rhythm, Normal S1 S2 Gastrointestinal: Normal bowel sounds, No tenderness Musculoskeletal: No tenderness Integumentary: No rashes Neurological: Normal gait, Normal speech, Normal strength at 5/5 x4 extr, Normal tone, Normal affect Lymphatics: No axilla or inguinal lymphadenopathy - Studies Microbiology Data (last 24 hrs): 10/03/17 18:30 Catheterized Urine Graham Count - Final >100,000 CFU/ML. 10/03/17 18:30 Catheterized Urine - Final Escherichia Coli - Diagnosis (Problem(s)) (1) Colitis Onset Date: 10/05/17 Status: Resolved (2) UTI (urinary tract infection) Onset Date: 10/05/17 Status: Acute Qualifiers: Urinary tract infection type: site unspecified Hematuria presence: without hematuria Qualified Code(s): N39.0 - Urinary tract infection, site not specified (3) Ovarian cancer Onset Date: 10/05/17 Status: Chronic Qualifiers: Laterality: unspecified laterality Qualified Code(s): C56.9 - Malignant neoplasm of unspecified ovary Treatment Summary: All during the hospital stay patient remained stable The patient was initially admitted to the hospital for abdominal pain which was found to be secondary to colitis versus urinary tract infection. Patient was found to have UA which was consistent with positive nitrites and leukesterase. Urine culture was done which was positive for E. coli. Patient was initially started on cefepime and Flagyl given the abdominal pain and history of chemotherapy and concern for bacterial colitis. Patient had marked improvement in her symptoms and thus was switched over to oral antibiotics. Initially there was a attempt made to transfer patient to [facility] as she has been treated over there by the GI doctors and Oncology. However patient had resolution of her symptoms and there was still no bed available at [facility] and thus was made to discharge the patient home with follow up with her oncologist. Patient was being treated for urinary tract infection here along with colitis and thus was discharged home on p.o. antibiotics Levaquin and Flagyl. Patient was asked to follow up with oncology in about 1-2 days post discharge. - Disposition Disposition: ROUTINE DISCHARGE Condition: GOOD Patient Discharge Instructions: Please f.u with PCP in 1 to 2 weeks post discharge. Please f.u with Oncologist at [facility] in 1 to 2 days post discharge. New medication. Levaquin 500mg daily for 10 days. Flagyl 500mg q8h daily for 10 days. You had Ecoli in the urine culture which was Pansensitive to all antibiotics Diet: Regular Activity: Ad fatmata
== END 2017-10-06 11:47 | disposition home or self-care (01) | DRG 372 ==
LOC: ER 12:27 → ERHOLD 10-04 12:18 → 4TH 10-04 14:53
PROVIDERS: ADMIT Family Medicine; ATTEND Family Medicine
DX: A04.9 Bacterial intestinal infection, unspecified (principal); N39.0 Urinary tract infection, site not specified; C56.9 Malignant neoplasm of unspecified ovary; B96.20 Unspecified Escherichia coli [E. coli] as the cause of diseases classified elsewhere; D70.9 Neutropenia, unspecified; E86.0 Dehydration
CPT/HCPCS: 36415; 51702; 74176; 76377; 80048; 80053; 80076; 81003; 82962; 83690; 83735; 85025; 87040; 87077; 87086; 87088; 87186; 96361; 96365; 96366; 96375; 99285; C9113; J0692; J0696; J1650; J2405; J2550; J3475; J7030

== ENCOUNTER 2018-07-16 21:14 | Observation (INO) | payer OTHER ==
--- OUTSIDE RECORDS SUMMARY | 2018-07-16 21:17 | XMS REPORT ---
[...] End Status Dosage System Date Date Metronidazole [facility] 27927413153 0.75 % Active 1 application Externally to affected Twice a day area Minocycline-Acne NDC 0 Active not defined Care Products [place] 3 ND 27513671116 1000 MG Orally Active 1 capsule Once a day Metformin HCl ND 07856295261 500 MG Orally Active 1 tablet with BID a meal Levothyroxine ND 48548638599 112 MCG Orally Active 1 tablet on Sodium Once a day an empty stomach in the morning Baclofen ND 26925329370 10 MG Orally Active 1 tablet with Three times a food or milk day Allopurinol ND 67183228971 300 MG Orally Active 1 tablet Once a day Folic Acid [facility] 97531761248 1 MG Orally Active 1 tablet Once a day Gabapentin [facility] 66634570337 300 MG Orally Active 1 capsule Once a day before bedtime Pravastatin [facility] 75994826299 80 MG Orally Active 1 tablet Sodium Once a day Lisinopril-Hydroc [facility] 86371002340 20-25 MG Active 1 tablet hlorothiazide Orally Once a day Furosemide [facility] 66990529309 40 MG Orally Active 1 tablet Once a day Magnesium [facility] 38043814076 500 MG Orally Active 1 tablet with Once a day a meal Aspirin 81 [facility] 67927964983 81 MG Orally Active 1 tablet Once a day Duloxetine HCl [facility] 81312684836 30 MG Orally Active 1 capsule Once a day Spironolactone [facility] 35045749029 25 MG Orally Active 1 tablet with Once a day food Vitamin D [facility] 34136492459 1000 UNIT Active 1 capsule (Cholecalciferol) Orally Once a day Results No Known Results Summary Purpose eClinicalWorks Submission
--- OUTSIDE RECORDS SUMMARY | 2018-07-16 21:17 | XMS REPORT ---
:1950 Author Organization eClinicalWorks Care Team Providers Name Role Phone Navid Rebel Provider Role Unavailable Allergies No Known Allergies Problems Problem Type Condition Code Onset Dates Condition Status Problem Rheumatoid arthritis involving M06.9 Active multiple sites, unspecified rheumatoid factor presence Problem Controlled type 2 diabetes mellitus E11.9 Active without complication, without long-term current use of insulin Assessment Hypothyroidism, unspecified type E03.9 Active Problem HTN (hypertension), benign I10 Active Problem Mixed hyperlipidemia E78.2 Active Problem Venous insufficiency I87.2 Active Problem Gout, unspecified cause, unspecified M10.9 Active chronicity, unspecified site Problem Hypothyroidism, unspecified type E03.9 Active Problem Malignant neoplasm of right ovary C56.1 Active Problem Malignant neoplasm of left ovary C56.2 Active Medications Medication Code Code Instructions Start End Status Dosage System Date Date Levothyroxine [facility] 09670396244 112 MCG Orally Inactive 1 tablet Sodium Once a day on an empty stomach in the morning Levothyroxine ND 21129927978 100 MCG Orally Dec 07, Active 1 tablet Sodium Once a day 2017 on an empty stomach in the morning Results No Known Results Summary Purpose eClinicalWorks Submission
--- OUTSIDE RECORDS SUMMARY | 2018-07-16 21:17 | XMS REPORT ---
:1950 Author Organization eClinicalWorks Care Team Providers Name Role Phone Rebel Shoemaker Provider Role Unavailable Allergies, Adverse Reactions, Alerts Substance Reaction Event Type N.K.D.A. Info Not Available Non Drug Allergy Problems Problem Type Condition Code Onset Dates Condition Status Problem Rheumatoid arthritis involving M06.9 Active multiple sites, unspecified rheumatoid factor presence Problem Controlled type 2 diabetes mellitus E11.9 Active without complication, without long-term current use of insulin Problem HTN (hypertension), benign I10 Active Assessment Anemia, unspecified type D64.9 Active Problem Mixed hyperlipidemia E78.2 Active Problem Venous insufficiency I87.2 Active Problem Gout, unspecified cause, unspecified M10.9 Active chronicity, unspecified site Problem Hypothyroidism, unspecified type E03.9 Active Problem Malignant neoplasm of right ovary C56.1 Active Problem Malignant neoplasm of left ovary C56.2 Active Assessment Venous insufficiency I87.2 Active Assessment Gout, unspecified cause, unspecified M10.9 Active chronicity, unspecified site Assessment Malignant neoplasm of left ovary C56.2 Active Assessment Malignant neoplasm of right ovary C56.1 Active Assessment HTN (hypertension), benign I10 Active Assessment Renal insufficiency N28.9 Active Assessment Rheumatoid arthritis involving M06.9 Active multiple sites, unspecified rheumatoid factor presence Assessment Hypothyroidism, unspecified type E03.9 Active Assessment Mixed hyperlipidemia E78.2 Active Assessment Controlled type 2 diabetes mellitus E11.9 Active without complication, without long-term current use of insulin Medications Medication Code Code Instructions Start End Status Dosage System Date Date Metronidazole [facility] 32793245529 0.75 % Active 1 application Externally to affected Twice a day area Aspirin [address] [facility] 03899415528 81 MG Orally Active 1 tablet Once a day Furosemide ND 70850688494 40 MG Orally Active 1 tablet Once a day Spironolactone [facility] 59706845997 25 MG Orally Active 1 tablet with Once a day food Folic Acid [facility] 81448807421 1 MG Orally Active 1 tablet Once a day Duloxetine HCl [facility] 90792862597 30 MG Orally Active 1 capsule Once a day [place] [address] [facility] 55182694762 1000 MG Orally Active 1 capsule Once a day Pravastatin [facility] 10504160426 80 MG Orally Active 1 tablet Sodium Once a day Baclofen [facility] 61769726875 10 MG Orally Active 1 tablet with Three times a food or milk day Magnesium [facility] 25251977964 500 MG Orally Active 1 tablet with Once a day a meal Vitamin D [facility] 08005981718 1000 UNIT Active 1 capsule (Cholecalciferol Orally Once a ) day Levothyroxine [facility] 37511416965 112 MCG Orally Inactive 1 tablet on Sodium Once a day an empty stomach in the morning Metformin HCl [facility] 65230233911 500 MG Orally Active 1 tablet with BID a meal Metformin HCl [facility] 09881633823 500 MG Orally Active 1 tablet with BID a meal Gabapentin [facility] 78543048397 300 MG Orally Active 1 capsule Once a day before bedtime Levothyroxine [facility] 14066970594 100 MCG Orally Dec 07, Active 1 tablet on Sodium Once a day 2017 an empty stomach in the morning Minocycline-Acne ND 0 Active not defined Care Products Lisinopril-Maxwell [facility] 21798658336 20-25 MG Active 1 tablet chlorothiazide Orally Once a day Results No Known Results Summary Purpose eClinicalWorks Submission
--- OUTSIDE RECORDS SUMMARY | 2018-07-16 21:17 | XMS REPORT ---
:1950 Author Organization eClinicalWorks Care Team Providers Name Role Phone Rebel Shoemaker Provider Role Unavailable Allergies No Known Allergies [...] Start End Status Dosage System Date Date Allopurinol [facility] 48076654690 300 MG Orally Sept Active 1 tablet Once a day 2017 Magnesium [facility] 50464470817 500 MG Orally Active 1 tablet with Once a day a meal Aspirin 81 [facility] 89259266611 81 MG Orally Active 1 tablet Once a day Lisinopril-Hydroc [facility] 32227231316 20-25 MG Active 1 tablet hlorothiazide Orally Once a day [place] 3 [facility] 96902505649 1000 MG Orally Active 1 capsule Once a day Metronidazole [facility] 82042648401 0.75 % Active 1 application Externally to affected Twice a day area Folic Acid [facility] 33664872708 1 MG Orally Sept Active 1 tablet Once a day 2017 Metformin HCl [facility] 34481147043 500 MG Orally Active 1 tablet with BID a meal Vitamin D [facility] 25722508585 1000 UNIT Active 1 capsule (Cholecalciferol) Orally Once a day Spironolactone [facility] 14469324449 25 MG Orally Dec Active 1 tablet with Once a day 2017 Minocycline-Acne ND 0 Active not defined Care Products Duloxetine HCl [facility] 07118656897 30 MG Orally Active 1 capsule Once a day Levothyroxine [facility] 95862681764 112 MCG Orally Active 1 tablet on Sodium Once a day an empty stomach in the morning Gabapentin [facility] 06104385504 300 MG Orally Active 1 capsule Once a day before bedtime Baclofen [facility] 62374948576 10 MG Orally Active 1 tablet with Three times a food or milk day Furosemide [facility] 45738971296 40 MG Orally Active 1 tablet Once a day Pravastatin [facility] 98758613384 80 MG Orally Active 1 tablet Sodium Once a day Results No Known Results Summary Purpose eClinicalWorks Submission
--- OUTSIDE RECORDS SUMMARY | 2018-07-16 21:18 | XMS REPORT ---
[...] without long-term current use of insulin Assessment Upper respiratory tract infection, J06.9 Active unspecified type Assessment Acute non-recurrent maxillary J01.00 Active sinusitis Problem HTN (hypertension), benign I10 Active Problem Mixed hyperlipidemia E78.2 Active Problem Venous insufficiency I87.2 Active Problem Gout, unspecified cause, unspecified M10.9 Active chronicity, unspecified site Problem Hypothyroidism, unspecified type E03.9 Active Problem Malignant neoplasm of right ovary C56.1 Active Problem Malignant neoplasm of left ovary C56.2 Active Medications Medication Code Code Instructions Start End Status Dosage System Date Date Levothyroxine [facility] 87707694546 100 MCG Orally Active 1 tablet on Sodium Once a day an empty stomach in the morning Duloxetine HCl [facility] 38699934014 30 MG Orally Active 1 capsule Once a day Minocycline-Acne ND 0 Active not defined Care Products Spironolactone [facility] 44287843095 25 MG Orally Active 1 tablet with Once a day food Magnesium [facility] 16177459686 500 MG Orally Active 1 tablet with Once a day a meal Metronidazole [facility] 92818416241 0.75 % Active 1 application Externally to affected Twice a day area Baclofen ND 87220590264 10 MG Orally Active 1 tablet with Three times a food or milk day Folic Acid ND 51883026744 1 MG Orally Active 1 tablet Once a day [employer] 3 ND 62568940090 1000 MG Orally Active 1 capsule Once a day Pravastatin ND 73568829629 80 MG Orally Active 1 tablet Sodium Once a day Lisinopril-Hydroc ND 29047324800 20-25 MG Active 1 tablet hlorothiazide Orally Once a day Vitamin D [facility] 91925678003 1000 UNIT Active 1 capsule (Cholecalciferol) Orally Once a day Gabapentin [facility] 34030796499 300 MG Orally Active 1 capsule Once a day before bedtime Azithromycin [facility] 61641914970 250 MG Orally May 16Apr Active 2 tablets on Once a day 2018, the first 2018 day, then 1 tablet daily for 4 days Aspirin 81 [facility] 39759276846 81 MG Orally Active 1 tablet Once a day Furosemide [facility] 38265668856 40 MG Orally Active 1 tablet Once a day Metformin HCl [facility] 49226154416 500 MG Orally Active 1 tablet with BID a meal Benzonatate [facility] 46391920613 200 MG Orally May 16May Active 1 capsule Three times a 2018 Results No Known Results Summary Purpose eClinicalWorks Submission
--- OUTSIDE RECORDS SUMMARY | 2018-07-16 21:18 | XMS REPORT ---
[...] insulin Assessment Hypothyroidism, unspecified type E03.9 Active Assessment Mixed hyperlipidemia E78.2 Active Problem HTN (hypertension), benign I10 Active Problem Mixed hyperlipidemia E78.2 Active Problem Venous insufficiency I87.2 Active Problem Gout, unspecified cause, unspecified M10.9 Active chronicity, unspecified site Problem Hypothyroidism, unspecified type E03.9 Active Problem Malignant neoplasm of right ovary C56.1 Active Problem Malignant neoplasm of left ovary C56.2 Active Medications Medication Code Code Instructions Start End Status Dosage System Date Date Pravastatin [facility] 81605070386 80 MG Orally Active 1 tablet Sodium Once a day Levothyroxine [facility] 04342476575 100 MCG Orally Active 1 tablet Sodium Once a day on an empty stomach in the morning Results No Known Results Summary Purpose eClinicalWorks Submission
--- OUTSIDE RECORDS SUMMARY | 2018-07-16 21:18 | XMS REPORT ---
[...] neoplasm of left ovary C56.2 Active Medications No Known Medications Results No Known Results Summary Purpose eClinicalWorks Submission
--- OUTSIDE RECORDS SUMMARY | 2018-07-16 21:18 | XMS REPORT ---
[...] without long-term current use of insulin Assessment HTN (hypertension), benign I10 Active Problem HTN (hypertension), benign I10 Active Problem Mixed hyperlipidemia E78.2 Active Problem Venous insufficiency I87.2 Active Problem Gout, unspecified cause, unspecified M10.9 Active chronicity, unspecified site Problem Hypothyroidism, unspecified type E03.9 Active Problem Malignant neoplasm of right ovary C56.1 Active Problem Malignant neoplasm of left ovary C56.2 Active Medications Medication Code Code Instructions Start End Status Dosage System Date Date Spironolactone ND 37234589808 25 MG Orally May 02, Active 1 tablet Once a day 2018 with food Lisinopril-Hydroch ND 03325553007 20-25 MG Orally Active 1 tablet lorothiazide Once a day Results No Known Results Summary Purpose eClinicalWorks Submission
--- OUTSIDE RECORDS SUMMARY | 2018-07-16 21:18 | XMS REPORT ---
[...] End Status Dosage System Date Date Levothyroxine ND 09523262280 100 MCG Orally Active 1 tablet on Sodium Once a day an empty stomach in the morning Spironolactone ND 54218525504 25 MG Orally Active 1 tablet with Once a day food Spironolactone ND 73061934183 25 MG Orally Active 1 tablet with Once a day food Minocycline-Acne NDC 0 Active not defined Care Products Furosemide ND 92996693237 40 MG Orally Active 1 tablet Once a day Vitamin D ND 52954325771 1000 UNIT Active 1 capsule (Cholecalciferol) Orally Once a day Metformin HCl [facility] 15440247123 500 MG Orally Active 1 tablet with BID a meal Gabapentin [facility] 82088230336 300 MG Orally Active 1 capsule Once a day before bedtime Lisinopril-Hydroc [facility] 75657321387 20-25 MG Active 1 tablet hlorothiazide Orally Once a day Metronidazole [facility] 27611070305 0.75 % Active 1 application Externally to affected Twice a day area [place] [address] [facility] 55928070611 1000 MG Orally Active 1 capsule Once a day Baclofen [facility] 46607210138 10 MG Orally Active 1 tablet with Three times a food or milk day Duloxetine HCl [facility] 41711668049 30 MG Orally Active 1 capsule Once a day Magnesium [facility] 55669731489 500 MG Orally Active 1 tablet with Once a day a meal Pravastatin [facility] 33406485075 80 MG Orally Active 1 tablet Sodium Once a day Folic Acid [facility] 31208614265 1 MG Orally Active 1 tablet Once a day Lisinopril-Hydroc [facility] 54215267955 20-25 MG Active 1 tablet hlorothiazide Orally Once a day Aspirin [address] [facility] 40116539134 81 MG Orally Active 1 tablet Once a day Results No Known Results Summary Purpose eClinicalWorks Submission
[2018-07-16] MEDS ORDERED: ONDANSETRON 4 MG/2 ML VIAL ONE (22:17)
[2018-07-16] MEDS ORDERED: NA CHLORIDE 0.9% 1,000 ML ONE (22:18)
[2018-07-16 22:34] LABS: Absolute Lymphocytes (CBC) 1.9 K/uL (0.7-4.9); Absolute Monocytes 0.5 K/uL (0.1-1.3); Absolute Neutrophil 4.5 K/uL (1.8-8.0); Basophils % 0.6 % (0-1.3); Eosinophils % 1.9 % (0-4.4); Hematocrit 34.1 % (36.0-45.0); Lymphocytes % 26.6 % (15.3-44.8); MPV 8.5 fL (7.6-11.3); Monocytes % 7.2 % (3.3-12.3); RBC Red Blood Cell Count 3.38 M/uL (3.86-4.86)
[2018-07-16 22:38] LABS: Protime INR 0.91
[2018-07-16 23:22] LABS: ALT/SGPT 15 U/L (12-78); AST/SGOT 10 U/L (15-37); Albumin 3.5 g/dL (3.4-5.0); Alkaline Phosphatase 89 U/L (45-117); BUN Blood Urea Nitrogen 46 mg/dL (7-18); Bicarbonate 27 mmol/L (21-32); Bilirubin Direct < 0.1 mg/dL (0-0.2); Bilirubin Total 0.3 mg/dL (0.2-1.0); Glucose Level 98 mg/dL (74-106); Magnesium 2.7 mg/dL (1.8-2.4); NT PRO-BNP 451 pg/mL (<125); Protein, Total 6.9 g/dL (6.4-8.2); Sodium Level 141 mmol/L (136-145); Troponin (Emerg Dept Use Only) < 0.02 ng/mL (0.0-0.045)
[2018-07-16 23:26] LABS: Potassium 5.6 mmol/L (3.5-5.1)
[2018-07-17] MEDS ORDERED: D50W 25 GM/50 ML SYRINGE IV ONE (00:25)
[2018-07-17] MEDS ORDERED: INSULIN -REGULAR HUMAN 50 UNIT/0.5 ML ML ONE (00:27)
[2018-07-17] MEDS ORDERED: SOD POLYSTYREN SUL 15 GM/60 ML UCUP ONE (00:28)
[2018-07-17] MEDS ORDERED: NA CHLORIDE 0.9% 1,000 ML ONE (00:28)
--- NOTE | 2018-07-17 02:19 | EDPHYS ---
Physician Documentation [facility] Name: Maria Del Carmen Carlisle Age: 68 yrs Sex: Female : 1950 Arrival Date: 07/16/2018 Time: 21:18 Bed 14 Private MD: Rebel Shoemaker ED Physician Alberto Concepcion HPI: 07/16 22:11 This 68 yrs old Female presents to ER via Wheelchair with complaints of jr8 Nausea, NIGHT SWEATS, Decreased Appetite, SLEEPY, CANCER PATIENT. 22:11 Patient stated that for the past week has had nausea, night sweats, decreased appetite, jr8 sleepy, and dizziness with standing up. Stated that he had Stage 4 ovarian cancer but was cleared this past January of cancer. In April for her CT f/u found mass near colon but not inside colon. Has not started chemotherapy as of yet. Patient is an [facility] patient . Severity of symptoms: At their worst the symptoms were moderate in the emergency department the symptoms are unchanged. The patient has not experienced similar symptoms in the past. The patient has not recently seen a physician. Historical: - Allergies: 21:50 Codeine (Vomiting); jb4 - Home Meds: 21:50 Allopurinol Oral [Active]; gabapentin Oral [Active]; Chemotherapy [Active]; Metformin jb4 Oral [Active]; levothyroxine oral [Active]; - PMHx: 21:50 brain aneurysm; Hypothyroidism; Back pain; ovarian CA; colon cancer; jb4 - PSHx: 21:50 ovaries; Knee surgery; fallopian tubes; brain; Hysterectomy; jb4 - Immunization history:: Adult Immunizations up to date, Flu vaccine is up to date. - Social history:: Smoking status: Patient/guardian denies using tobacco, Patient/guardian denies using alcohol. - Ebola Screening: : No symptoms or risks identified at this time. ROS: 22:11 Eyes: Negative for injury, pain, redness, and discharge, ENT: Negative for injury, jr8 pain, and discharge, Neck: Negative for injury, pain, and swelling, Cardiovascular: Negative for chest pain, palpitations, and edema, Respiratory: Negative for shortness of breath, cough, wheezing, and pleuritic chest pain, Back: Negative for injury and pain, MS/Extremity: Negative for injury and deformity, Skin: Negative for injury, rash, and discoloration. 22:11 Constitutional: Positive for fatigue, malaise. 22:11 Abdomen/GI: Positive for nausea, Negative for abdominal pain, vomiting, diarrhea, abdominal cramps, abdominal distension, anorexia, dysphagia, hematemesis, black/tarry stool, rectal pain, rectal bleeding, bowel incontinence, flatulence. 22:11 Neuro: Positive for dizziness, Negative for altered mental status, gait disturbance, headache, hearing loss, loss of consciousness, numbness, seizure activity, speech changes, syncope, near syncope, tingling, tinnitus, tremor, visual changes, weakness. Exam: 22:11 Eyes: Pupils equal round and reactive to light, extra-ocular motions intact. Lids and jr8 lashes normal. Conjunctiva and sclera are non-icteric and not injected. Cornea within normal limits. Periorbital areas with no swelling, redness, or edema. ENT: Nares patent. No nasal discharge, no septal abnormalities noted. Tympanic membranes are normal and external auditory canals are clear. Oropharynx with no redness, swelling, or masses, exudates, or evidence of obstruction, uvula midline. Mucous membranes moist. Neck: Trachea midline, no thyromegaly or masses palpated, and no cervical lymphadenopathy. Supple, full range of motion without nuchal rigidity, or vertebral point tenderness. No Meningismus. Cardiovascular: Regular rate and rhythm with a normal S1 and S2. No gallops, murmurs, or rubs. Normal PMI, no JVD. No pulse deficits. Respiratory: Lungs have equal breath sounds bilaterally, clear to auscultation and percussion. No rales, rhonchi or wheezes noted. No increased work of breathing, no retractions or nasal flaring. Abdomen/GI: Soft, non-tender, with normal bowel sounds. No distension or tympany. No guarding or rebound. No evidence of tenderness throughout. Back: No spinal tenderness. No costovertebral tenderness. Full range of motion. Skin: Warm, dry with normal turgor. Normal color with no rashes, no lesions, and no evidence of cellulitis. MS/ Extremity: Pulses equal, no cyanosis. Neurovascular intact. Full, normal range of motion. Neuro: Awake and alert, GCS 15, oriented to person, place, time, and situation. Cranial nerves II-XII grossly intact. Motor strength 5/5 in all extremities. Sensory grossly intact. Cerebellar exam normal. Normal gait. 22:11 ECG was reviewed by the Attending Physician. Vital Signs: 21:50 BP 93 / 54; Pulse 68; Resp 16; Temp 97.8(O); Pulse Ox 97% on R/A; Weight 113.4 kg; jb4 Height 5 ft. 5 in. (165.10 cm); Pain 0/10; 23:28 BP 101 / 50 LA Supine; Pulse 72; Resp 18; Pulse Ox 94% on R/A; jb4 23:30 BP 98 / 50; Pulse 68; Resp 18; Pulse Ox 93% on R/A; jb4 23:32 BP 125 / 75; Pulse 82; Resp 18; Pulse Ox 95% on R/A; 4 07/17 00:50 BP 125 / 75; Pulse 81; Resp 16; Pulse Ox 94% on R/A; jb4 01:30 BP 110 / 52; Pulse 76; Resp 16; Pulse Ox 94% on R/A; 4 02:30 BP 120 / 65; Pulse 65; Resp 18; Pulse Ox 98% on 2 lpm NC; 4 03:25 BP 116 / 74; Pulse 67; Resp 16; Pulse Ox 100% on 2 lpm NC; jb4 04:00 BP 116 / 74; Pulse 67; Resp 16; Temp 98.0; Pulse Ox 97% on 2 lpm NC; 4 07/16 21:50 Body Mass Index 41.60 (113.40 kg, 165.10 cm) [facility] MDM: 07/16 21:26 Patient medically screened. [facility] 07/17 02:17 Data reviewed: vital signs, nurses notes, lab test result(s), EKG, radiologic studies, [facility] CT scan, plain films. Data interpreted: Pulse oximetry: on room air is 93 %. Interpretation: borderline. Plan: O2 by NC applied. Counseling: I had a detailed discussion with the patient and/or guardian regarding: the historical points, exam findings, and any diagnostic results supporting the discharge/admit diagnosis, lab results, radiology results, the need for further work-up and treatment in the hospital. ED course: Consulted [facility]. They are currently at capacity. Will admit patient here for suspected pneumonia and renal failure . 07/16 21:55 Order name: Basic Metabolic Panel; Complete Time: 23:34 [facility] 07/16 21:55 Order name: CBC with Diff; Complete Time: 22:54 [facility] 07/16 21:55 Order name: LFT's; Complete Time: 23:34 [facility] 07/16 21:55 Order name: Magnesium; Complete Time: 23:34 [facility] 07/16 21:55 Order name: NT PRO-BNP; Complete Time: 23:34 [facility] 07/16 21:55 Order name: PT-INR; Complete Time: 22:54 [facility] 07/16 21:55 Order name: Troponin (emerg Dept Use Only); Complete Time: 23:34 [facility] 07/16 21:55 Order name: XRAY Chest (1 view) [facility] 07/16 21:56 Order name: CT Head Brain wo Cont [facility] 07/16 23:41 Order name: CT Chest Abdomen Pelvis W/O Contrast [facility] 07/17 01:32 Order name: Urine Dipstick--Ancillary (enter results); Complete Time: 03:10 [facility] 07/17 02:08 Order name: Blood Culture Adult (2) [facility] 07/16 21:55 Order name: EKG; Complete Time: 21:55 [facility] 07/16 21:55 Order name: Cardiac monitoring; Complete Time: 22:32 [facility] 07/16 21:55 Order name: EKG - Nurse/Tech; Complete Time: 22:32 [facility] 07/16 21:55 Order name: IV Saline Lock; Complete Time: 22:39 [facility] 07/16 21:55 Order name: Labs collected and sent; Complete Time: 22:39 [facility] 07/16 21:55 Order name: O2 Per Protocol; Complete Time: 22:39 07/16 21:55 Order name: O2 Sat Monitoring; Complete Time: 22:40 [facility] 07/16 21:56 Order name: Urine Dipstick-Ancillary (obtain specimen); Complete Time: 01:40 [facility] 07/16 21:57 Order name: Orthostatics; Complete Time: 23:59 [facility] EC/24 22:11 Rate is 65 beats/min. Rhythm is regular, Normal Sinus Rhythm. QRS [place] is Normal. [place] jr8 interval is normal at 192 msec. QRS interval is normal at 80 msec. QT interval is normal at 399 msec. Q waves are Present in leads III, aVF. T waves are Inverted in lead V1. T waves are Flattened in lead aVL. No ST changes noted. Clinical impression: Inferior FL - age indeterminate. Interpreted by me. Reviewed by me. Administered Medications: 22:31 Drug: NS 0.9% 1000 ml Route: IV; Rate: 1000 ml; Site: right antecubital; jb4 23:00 Follow up: Response: No adverse reaction; IV Status: Completed infusion; IV Intake: jb4 1000ml 07/17 00:45 Drug: Insulin Regular Human 10 units {Co-Signature: jb4 (Wyatt Ram RN).} Route: IVP; la1 Site: right antecubital; 01:40 Follow up: Response: No adverse reaction jb4 00:45 Drug: Kayexalate 45 grams Route: PO; jb4 01:40 Follow up: Response: No adverse reaction jb4 00:50 Drug: D50W 50 ml Route: IVP; Site: right antecubital; jb4 01:40 Follow up: Response: No adverse reaction jb4 01:00 Drug: NS 0.9% 1000 ml Route: IV; Rate: 100 ml/hr; Site: right antecubital; jb4 04:52 Follow up: Response: No adverse reaction; IV Status: Infusion continued upon admission jb4 01:40 Not Given (Patient Refused): Zofran 4 mg IVP once; over 2 minutes jb4 03:10 Drug: LevaQUIN 500 mg Volume: 100 ml; Route: IVPB; Infused Over: 60 mins; Site: right jb4 antecubital; 04:10 Follow up: Response: No adverse reaction; IV Status: Completed infusion jb4 Disposition: 06:46 Co-signature as Attending Physician, Alberto Concepcion MD I agree with the assessment and 4 plan of care. Disposition: 07/17/18 02:19 Hospitalization ordered by Arthur Espinoza for Inpatient Admission. Preliminary diagnosis are Pneumonia due to other specified bacteria, Pleural effusion in conditions classified elsewhere, Acute kidney failure, Hyperkalemia. - Bed requested for Telemetry/MedSurg (Inpatient). - Status is Inpatient Admission. jb4 - Condition is Stable. - Problem is new. - Symptoms have improved. UTI on Admission? No Signatures: Dispatcher [employer] EDMS Angel Patterosn PA PA jr8 Minesh Thrasher RN RN wy1 Digna العلي, RN RN Wyatt Ram, ORQUIDEA RN jb4 Alberto Concepcion MD MD tw4 Wyatt Rma RN jb4 Corrections: (The following items were deleted from the chart) 07/16 23:38 21:57 Abdomen Pelvis W Con+CT.RAD.BRZ ordered. [facility] 07/17 00:28 07/16 23:38 Abdomen ordered. [facility] 07/17 03:35 02:19 Hospitalization Ordered by Arthur Espinoza MD for Inpatient Admission. Preliminary cg diagnosis is Pneumonia due to other specified bacteria; Pleural effusion in conditions classified elsewhere; Acute kidney failure; Hyperkalemia. Bed requested for Telemetry/MedSurg (Inpatient). Status is Inpatient Admission. Condition is Stable. Problem is new. Symptoms have improved. UTI on Admission? No. jr8 04:53 03:35 07/17/2018 02:19 Hospitalization Ordered by Arthur Espinoza MD for Inpatient jb4 Admission. Preliminary diagnosis is Pneumonia due to other specified bacteria; Pleural effusion in conditions classified elsewhere; Acute kidney failure; Hyperkalemia. Bed requested for Telemetry/MedSurg (Inpatient). Status is Inpatient Admission. Condition is Stable. Problem is new. Symptoms have improved. UTI on Admission? No. cg
--- NOTE | 2018-07-17 02:19 | ER ---
Nurse's Notes [facility] Name: Maria Del Carmen Carlisle Age: 68 yrs Sex: Female : 1950 Arrival Date: 07/16/2018 Time: 21:18 Bed 14 Private MD: Rebel Shoemaker Diagnosis: Pneumonia due to other specified bacteria;Pleural effusion in conditions classified elsewhere;Acute kidney failure;Hyperkalemia Presentation: 07/16 21:50 Presenting complaint: Patient states: I have been having night sweats, nausea, jb4 decreased appetite, for the past week that has been getting worse. 21:50 Transition of care: patient was not received from another setting of care. Onset of jb4 symptoms was July 09, 2018. Risk Assessment: Do you want to hurt yourself or someone else? Patient reports no desire to harm self or others. Initial Sepsis Screen: Does the patient meet any 2 criteria? No. Patient's initial sepsis screen is negative. Does the patient have a suspected source of infection? No. Patient's initial sepsis screen is negative. Care prior to arrival: None. 21:50 Method Of Arrival: Wheelchair jb4 21:50 Acuity: MAYRA 3 jb4 Historical: - Allergies: 21:50 Codeine (Vomiting); jb4 - Home Meds: 21:50 Allopurinol Oral [Active]; gabapentin Oral [Active]; Chemotherapy [Active]; Metformin jb4 Oral [Active]; levothyroxine oral [Active]; - PMHx: 21:50 brain aneurysm; Hypothyroidism; Back pain; ovarian CA; colon cancer; jb4 - PSHx: 21:50 ovaries; Knee surgery; fallopian tubes; brain; Hysterectomy; jb4 - Immunization history:: Adult Immunizations up to date, Flu vaccine is up to date. - Social history:: Smoking status: Patient/guardian denies using tobacco, Patient/guardian denies using alcohol. - Ebola Screening: : No symptoms or risks identified at this time. Screenin:30 Abuse screen: Denies threats or abuse. Nutritional screening: No deficits noted. jb4 Tuberculosis screening: No symptoms or risk factors identified. Fall Risk IV access (20 points). Total Epperson Fall Scale indicates No Risk (0-24 pts). Assessment: 21:50 General: Appears in no apparent distress. comfortable, Behavior is calm, cooperative, jb4 appropriate for age. Pain: Denies pain. Neuro: Level of Consciousness is awake, alert, obeys commands, Oriented to person, place, time, situation. Cardiovascular: Patient's skin is warm and dry. Rhythm is sinus rhythm. Respiratory: Airway is patent Respiratory effort is even, unlabored, Respiratory pattern is regular, symmetrical. GI: Abdomen is non-distended, obese, Reports nausea. : No signs and/or symptoms were reported regarding the genitourinary system. EENT: No signs and/or symptoms were reported regarding the EENT system. Derm: Skin is intact, Skin is pink, warm \T\ dry. Musculoskeletal: Circulation, motion, and sensation intact. 22:50 Reassessment: No changes from previously documented assessment. Patient and/or family jb4 updated on plan of care and expected duration. Pain level reassessed. Patient is alert, oriented x 3, equal unlabored respirations, skin warm/dry/pink. 23:50 Reassessment: Patient and/or family updated on plan of care and expected duration. Pain jb4 level reassessed. PT respirations are labored after orthostatic B/P's, Lungs are CTA, Provider notified, no new orders at this time. 07/17 01:00 Reassessment: No changes from previously documented assessment. Patient and/or family jb4 updated on plan of care and expected duration. Pain level reassessed. Pt back from Ct. 01:46 Reassessment: Patient appears in no apparent distress at this time. Patient and/or jb4 family updated on plan of care and expected duration. Pain level reassessed. Patient is alert, oriented x 3, equal unlabored respirations, skin warm/dry/pink. Pt placed on 2L NC while sleeping due to desat to 90% on RA. 03:00 Reassessment: Patient appears in no apparent distress at this time. Patient and/or jb4 family updated on plan of care and expected duration. Pain level reassessed. Patient is alert, oriented x 3, equal unlabored respirations, skin warm/dry/pink. 04:15 Reassessment: Patient appears in no apparent distress at this time. Patient and/or jb4 family updated on plan of care and expected duration. Pain level reassessed. Patient is alert, oriented x 3, equal unlabored respirations, skin warm/dry/pink. Report called to Kb RN. Vital Signs: 07/16 21:50 BP 93 / 54; Pulse 68; Resp 16; Temp 97.8(O); Pulse Ox 97% on R/A; Weight 113.4 kg; jb4 Height 5 ft. 5 in. (165.10 cm); Pain 0/10; 23:28 BP 101 / 50 LA Supine; Pulse 72; Resp 18; Pulse Ox 94% on R/A; jb4 23:30 BP 98 / 50; Pulse 68; Resp 18; Pulse Ox 93% on R/A; jb4 23:32 BP 125 / 75; Pulse 82; Resp 18; Pulse Ox 95% on R/A; jb4 07/17 00:50 BP 125 / 75; Pulse 81; Resp 16; Pulse Ox 94% on R/A; jb4 01:30 BP 110 / 52; Pulse 76; Resp 16; Pulse Ox 94% on R/A; jb4 02:30 BP 120 / 65; Pulse 65; Resp 18; Pulse Ox 98% on 2 lpm NC; jb4 03:25 BP 116 / 74; Pulse 67; Resp 16; Pulse Ox 100% on 2 lpm NC; jb4 04:00 BP 116 / 74; Pulse 67; Resp 16; Temp 98.0; Pulse Ox 97% on 2 lpm NC; jb4 07/16 21:50 Body Mass Index 41.60 (113.40 kg, 165.10 cm) jb4 ED Course: 07/16 21:18 Patient arrived in ED. es 21:19 Rebel Shoemaker DO is Private Physician. es 21:25 Angel Patterson PA is PHCP. jr8 21:25 Alberto Concepcion MD is Attending Physician. jr8 21:50 Arm band placed on left wrist. jb4 21:58 Wyatt Ram, ORQUIDEA is Primary Nurse. jb4 22:00 Triage completed. jb4 22:30 Patient has correct armband on for positive identification. Placed in gown. Bed in low jb4 position. Call light in reach. Side rails up X2. equipment monitor phototypesetting on. Pulse ox on. NIBP on. 22:36 Radiology exam delayed due to lab results not completed at this time. (BUN/Creatinine). kw1 23:01 XRAY Chest (1 view) In Process Unspecified. EDMS 07/17 00:29 CT Head Brain wo Cont In Process Unspecified. EDMS 00:30 CT Chest Abdomen Pelvis W/O Contrast In Process Unspecified. EDMS 02:18 Arthur Espinoza MD is Hospitalizing Provider. jr8 04:20 No provider procedures requiring assistance completed. Patient admitted, IV remains in jb4 place. Administered Medications: 07/16 22:31 Drug: NS 0.9% 1000 ml Route: IV; Rate: 1000 ml; Site: right antecubital; jb4 23:00 Follow up: Response: No adverse reaction; IV Status: Completed infusion; IV Intake: jb4 1000ml 07/17 00:45 Drug: Insulin Regular Human 10 units {Co-Signature: jb4 (Wyatt Ram RN).} Route: IVP; la1 Site: right antecubital; 01:40 Follow up: Response: No adverse reaction jb4 00:45 Drug: Kayexalate 45 grams Route: PO; jb4 01:40 Follow up: Response: No adverse reaction jb4 00:50 Drug: D50W 50 ml Route: IVP; Site: right antecubital; jb4 01:40 Follow up: Response: No adverse reaction jb4 01:00 Drug: NS 0.9% 1000 ml Route: IV; Rate: 100 ml/hr; Site: right antecubital; jb4 04:52 Follow up: Response: No adverse reaction; IV Status: Infusion continued upon admission jb4 01:40 Not Given (Patient Refused): Zofran 4 mg IVP once; over 2 minutes jb4 03:10 Drug: LevaQUIN 500 mg Volume: 100 ml; Route: IVPB; Infused Over: 60 mins; Site: right jb4 antecubital; 04:10 Follow up: Response: No adverse reaction; IV Status: Completed infusion jb4 Intake: 07/16 23:00 IV: 1000ml; Total: 1000ml. jb4 Outcome: 07/17 02:19 Decision to Hospitalize by Provider. jr8 04:20 Admitted to Tele accompanied by nurse, via wheelchair, room 421, with oxygen, with jb4 chart, Report called to ORQUIDEA Quiles 04:20 Condition: stable 04:20 Discharge instructions given to patient, family, Instructed on the need for admit, Demonstrated understanding of instructions. 04:53 Patient left the ED. jb4 Signatures: Dispatcher [employer] Ciara Fontana Josh, PA PA jr8 Minesh Thrasher RN RN la1 Wyatt Ram RN RN jb4 Sheree Baker 1 Wyatt Ram RN jb4
[2018-07-17] MEDS ORDERED: Levofloxacin500mg IV 500 MG/100 ML BAG IV ONE (02:51)
[2018-07-17 03:06] LABS: Urine Blood NEGATIVE (NEG); Urine Glucose NEGATIVE (NEG); Urine Protein NEGATIVE (NEG); Urine pH 5.5 (5.0-7.0)
--- NOTE | 2018-07-17 03:52 | P.HP ---
Certification for Inpatient Patient admitted to: Inpatient With expected LOS: >2 Midnights Practitioner: I am a practitioner with admitting privileges, knowledge of patient current condition, hospital course, and medical plan of care. Services: Services provided to patient in accordance with Admission requirements found in Title 42 Section 412.3 of the Code of Federal Regulations Patient History Date of Service: 07/17/18 Reason for admission: right pleural effusion History of Present Illness: Ms Carlisle is a 68 years old woman with history of stage IV ovarian cancer, with intrabdominal metastasis, currently on hormonal chemotherapy, who came to ED complaining of progressive weakness, SOB and lost of appetite. She denied fever or chills. She has cough with clear secretions. Lab work shows normal WBC count, hyperkalemia, worsening renal function and unremarkable UA. CT chest/abd/ pelvis shows moderate right pleural effusion with consolidation. Her daughter shows previous images from [facility] with smaller pleural effusion from 05/13. Allergies codeine Allergy (Verified 10/04/17 13:09) Nausea/Vomiting Home medications list reviewed: Yes Home Medications: Allopurinol [Zyloprim*] 300 mg PO DAILY 10/04/17 Baclofen [Lioresal*] 10 mg PO TID 10/04/17 Diclofenac Na [Voltaren D.r*] 75 mg PO DAILY PRN 10/04/17 Duloxetine [Cymbalta *] 30 mg PO DAILY 10/04/17 Folic Acid 1 mg PO DAILY 10/04/17 Furosemide [Lasix*] 40 mg PO DAILY 10/04/17 Gabapentin [Gralise] 300 mg PO DAILY 10/04/17 Levothyroxine [Synthroid*] 112 mcg PO SUDOS3SO 10/04/17 Lisinopril/Hydrochlorothiazide [Lisinopril-Hctz 20-12.5 mg Tab] 1 each PO DAILY 10/04/17 Metformin HCl [Glucophage*] 500 mg PO BIDWM 10/04/17 Pravastatin Sodium [Pravachol] 80 mg PO DAILY 10/04/17 Spironolactone [Aldactone*] 25 mg PO DAILY WITH BREAKFAST 10/04/17 Levofloxacin [Levaquin] 500 mg PO DAILY #10 tablet 10/06/17 metroNIDAZOLE [Flagyl] 500 mg PO Q8H #30 tablet 10/06/17 - Past Medical/Surgical History Diabetic: No -: Ovarian cancer -: History of AVM with repair -: diabetes -: hypothyroidism -: Brain surgery for AVM -: Hysterectomy -: Tubal ligation -: Right knee surgery -: Cholecystectomy Psychosocial/ Personal History: The patient is . She has 4 children. - Family History Father -: Cancer (Leukemia) Notes: leukemia Mother -: Cancer (Breast and lung cancer) - Social History Smoking Status: Former smoker Alcohol use: Yes CD- Drugs: No Caffeine use: Yes Place of Residence: Home Review of Systems 10-point ROS is otherwise unremarkable Physical Examination - Physical Exam General: Alert, In no apparent distress HEENT: Atraumatic, PERRLA, Mucous membr. moist/pink, EOMI, Sclerae nonicteric Neck: Supple, 2+ carotid pulse no bruit, No LAD, Without JVD or thyroid abnormality Respiratory: Diminished (right base) Cardiovascular: Normal S1 S2, No gallops Gastrointestinal: Normal bowel sounds, No tenderness Musculoskeletal: No tenderness Integumentary: No rashes Neurological: Normal gait, Normal speech, Normal strength at 5/5 x4 extr, Normal tone, Normal affect Lymphatics: No axilla or inguinal lymphadenopathy - Studies Laboratory Data (last 24 hrs) 07/16/18 22:25: PT 10.8, INR 0.91 07/16/18 22:25: WBC 7.1, Hgb 11.2 L, Hct 34.1 L, Plt Count 236 07/16/18 22:25: Sodium 141, Potassium 5.6 H*, BUN 46 H, Creatinine 2.29 H, Glucose 98, Magnesium 2.7 H, Total Bilirubin 0.3, AST 10 L, ALT 15, Alkaline Phosphatase 89 Assessment and Plan - Problems (Diagnosis) (1) Pleural effusion Current Visit: Yes Status: Acute (2) Hyperkalemia Current Visit: Yes Status: Acute (3) Acute kidney injury superimposed on CKD Current Visit: Yes Status: Acute (4) Ovarian cancer Onset Date: 10/05/17 Current Visit: No Status: Chronic Qualifiers: Laterality: unspecified laterality Qualified Code(s): C56.9 - Malignant neoplasm of unspecified ovary - Plan Will admit the patient to the hospital due to moderate right pleural effusion leading with progressive dyspnea. Differentila diagnosis are malignancy vs infectious (less likely, no fever, cough with clear secretions, normal WBC) pending procalcitonin and lactate. Will order US guided thoracentesis, for diagnostic and treatment. - Advance Directives Does patient have a Living Will: No Does patient have a Durable POA for Healthcare: No - Code Status/Comfort Care Code Status Assessed: Yes Code Status: Full Code
[2018-07-17] MEDS ORDERED: SOD POLYSTYREN SUL 15 GM/60 ML UCUP PO ONE (04:49)
[2018-07-17] MEDS ORDERED: NA CHLORIDE 0.9% 1,000 ML IV SCH (04:49)
[2018-07-17] MEDS ORDERED: ONDANSETRON 4 MG/2 ML VIAL IV PRN (04:49)
[2018-07-17 04:57] VITALS: BMI 43.6
[2018-07-17] MEDS ORDERED: D50W 25 GM/50 ML SYRINGE IV PRN (05:13)
[2018-07-17] MEDS ORDERED: GLUCAGON 1 MG/VIAL IM PRN (05:13)
[2018-07-17] MEDS: INSULIN -REGULAR HUMAN 50 UNIT/0.5 ML ML SQ SCH ×4 (07:30→21:00)
--- NOTE | 2018-07-17 08:26 | RAD REPORT ---
EXAM DESCRIPTION: RAD - Chest Single View - 07/16/2018 11:00 pm CLINICAL HISTORY: Dyspnea COMPARISON: None. TECHNIQUE: AP portable chest image was obtained 2240 hours . FINDINGS: Moderate right-sided pleural effusion is present with atelectasis. Mass or infiltrate coul d be masked in the right lung base. No left-sided pleural effusion. Heart size is prominent. Right-si de of the heart is obscured by the pleural fluid. No vascular engorgement. Port-A-Cath is in place on the right. No pneumothorax. No acute bony abnormality seen. No acute aortic findings suspected. IMPRESSION: Moderate right pleural effusion with atelectasis.
--- NOTE | 2018-07-17 08:47 | EKG ---
Test Date: 2018-07-16 Test Time: 22:12:50 [employer] Contractor: DOREEN MEASUREMENT RESULTS: Intervals: Rate: 65 WY: 192 QRSD: 80 QT: 384 QTc: 399 [place]: P: 47 WY: 192 QRS: 45 T: 70 INTERPRETIVE STATEMENTS: Normal sinus rhythm Low voltage QRS Inferior infarct, age undetermined Cannot rule out Anterior infarct, age undetermined Abnormal ECG No previous ECG available for comparison Electronically Signed On 07-17-18 08:47:18 CDT by Long Delcid
--- NOTE | 2018-07-17 12:09 | RAD REPORT ---
EXAM DESCRIPTION: US - Thoracentesis w/ US Guide - 07/17/2018 10:48 am CLINICAL HISTORY: Right-sided pleural effusion COMPARISON: CT chest July 17, portable chest July 16 TECHNIQUE: Patient presents for ultrasound-guided thoracentesis of a right pleural effusion previous ly detailed. Patient is on 81 milligram aspirin therapy. No contraindicated allergy or medication his tory regarding thoracentesis procedure. The thoracentesis procedure, risks and alternatives were discussed with the patient in detail. After answering all questions, oral and written consent were obtained. Preliminary imaging of the lower right chest identified moderate-sized pleural effusion. Time-out pro cedure was performed. Lower right chest skin was prepped and draped in the usual sterile fashion. Sonographic evaluation id entified access site. The skin and deeper tissues were anesthetized with 1% lidocaine. Under direct s onographic visualization, a [id number]-G-[id number] catheter was advanced. Pleural lining was penetrated. Flory roximately 5 cc of pleural fluid was retained for requested laboratory studies. Catheter was position ed for drainage. Approximately 1 liter of pleural fluid was removed. Patient tolerated procedure with out immediate complications and was transferred back to the floor for continued care. IMPRESSION: Ultrasound-guided thoracentesis procedure as detailed. Approximately 5 mL of pleural fluid retained for laboratory studies ordered by the referring physicia n.
--- NOTE | 2018-07-17 12:16 | RAD REPORT ---
EXAM DESCRIPTION: CT - Head Brain Wo Cont - 07/17/2018 6:37 am CLINICAL HISTORY: 68 years Female DIZZINESS COMPARISON: None TECHNIQUE: Contiguous axial images of the brain were obtained without the administration of intraven ous contrast.This exam was performed according to our departmental dose-optimization program which in cludes use of Automated Exposure Control, adjustment of the mA and/or kV according to patient size an d/or use of iterative reconstruction technique. FINDINGS: Brain: Prior left frontoparietal craniotomy. Encephalomalacia in the left frontoparietal l obe No acute intracranial hemorrhage. No extra-axial collection. No mass effect or herniation. Mild prominence of the sulci and cisterns Confluent periventricular and subcortical white matter hypodens ity is noted. Ventricles: Ex vacuo dilatation of the left lateral ventricle. No ventriculomegaly. Globes and orbits: No acute abnormality. Bones: No acute osseous finding. Hyperostosis frontalis internus. Paranasal sinuses: Paranasal sinuses are clear. Mastoid air cells: Well pneumatized. Soft tissues: Within normal limits IMPRESSION: Prior left frontoparietal craniotomy and underlying encephalomalacia with mild ex vacuo dilatation of the left lateral ventricle. No intracranial hemorrhage or herniation. Cerebral volume loss and chronic small vessel ischemic changes. If persistent clinical concern for ac brandy ischemia, consider MRI brain without contrast for further evaluation. Electronically signed by: Eric Fay DO 07/17/2018 12:57 AM CDT Due to temporary technical issues with the PACS/Fluency reporting system, reports are being signed by the in house radiologist as a courtesy to ensure prompt reporting. The interpreting radiologist is f ully responsible for the content of the report.
--- NOTE | 2018-07-17 12:18 | RAD REPORT ---
EXAM DESCRIPTION: CT - Chest Abd Pelvis Wo Con - 07/17/2018 6:37 am CLINICAL HISTORY: The patient is 68 years old and is Female; lung effusion, abdominal pain with mass TECHNIQUE: Axial computed tomography images of the chest, abdomen and pelvis without intravenous con trast. Sagittal and coronal reformatted images were created and reviewed. This CT exam was perfor med using one or more of the following dose reduction techniques: automated exposure control, adjus tment of the mA and/or kV according to patient size, and/or use of iterative reconstruction technique . COMPARISON: None. FINDINGS: CHEST: LUNGS: Consolidation with air bronchogram in the right middle and lower lobes. Punctate calcified nodule in the lateral aspect of the lingula (series 201 , image 28). PLEURAL SPACE: Moderate-sized right pleural effusion. No pneumothorax. HEART: The heart is normal in size. No pericardial effusion or coronary calcifications. THYROID: Visualized thyroid is unremarkable. ABDOMEN: LIVER: Unremarkable. GALLBLADDER AND BILE DUCTS: Prior cholecystectomy. No ductal dilatation. PANCREAS: Fatty infiltration of the pancreas. No ductal dilatation. SPLEEN: Unremarkable. No splenomegaly. ADRENALS: Unremarkable. No mass. KIDNEYS AND URETERS: No hydronephrosis or hydroureter. STOMACH AND BOWEL: Small and large bowel containing ventral hernia. No obstruction. No mucosal thickening. PELVIS: APPENDIX: The appendix is not seen. BLADDER: Unremarkable. No stones. REPRODUCTIVE: Prior hysterectomy. CHEST, ABDOMEN and PELVIS: INTRAPERITONEAL SPACE: Unremarkable. No significant fluid collection. No free air. BONES/JOINTS: Diffuse osteopenia and diffuse degenerative disc disease with reactive endplate zhou ges and vacuum phenomenon from the midthoracic spine through the sacrum. Degenerative changes of the pubic symphysis. No acute fracture. No dislocation. SOFT TISSUES: See above. VASCULATURE: Mild atherosclerotic vascular disease. No aortic aneurysm. LYMPH NODES: No mediastinal lymphadenopathy. TUBES, LINES AND DEVICES: Right chest port with IJ approach terminating in the distal SVC. OTHER FINDINGS: Prior midline abdominal postsurgical changes. IMPRESSION: 1. Right lung base consolidation with air bronchograms concerning for pneumonia. 2. Moderate right pleural effusion and adjacent atelectasis. Underlying neoplasm cannot be excluded . No prior studies are available for comparison. 3. 1 to 2 mm lingular nodule. 4. Prior cholecystectomy. 5. Small and large bowel containing ventral hernia. No obstruction. 6. Mild atherosclerotic vascular disease. Electronically signed by: Eric Fay DO 07/17/2018 1:09 AM CDT Due to temporary technical issues with the PACS/Fluency reporting system, reports are being signed by the in house radiologist as a courtesy to ensure prompt reporting. The interpreting radiologist is f ully responsible for the content of the report.
[2018-07-17] MEDS ORDERED: BACLOFEN 10 MG TAB PO PRN (13:38)
[2018-07-17] MEDS ORDERED: FUROSEMIDE 40 MG TABLET PO SCH (14:00)
--- NOTE | 2018-07-17 16:36 | PN ---
Date of Progress Note: 07/17/2018 Subjective: Patient is seen and examined. Chart reviewed and case discussed with RN. The patient is going for thoracentesis today. Medications: List reviewed. Code Status: Full code. Physical Examination: Vital Signs: Temperature 97.6, heart rate 66, blood pressure 97/50, respirations 16, O2 96% on 2 L via nasal cannula. BMI 43.6. CV: S1, S2. Regular rate and rhythm. Peripheral pulses present. Respiratory: Diminished breath sounds at the bases. Dullness to percussion. No stridor. No use of accessory muscles. Gastrointestinal: Abdomen is soft, nontender, nondistended. Positive bowel sounds. Extremities: No clubbing, cyanosis, or edema. Neurologic: Nonfocal. Laboratory Data: Pending. Glucose level is 107. Procalcitonin less than 0.05. Assessment And Plan: A 68-year-old female with, 1. Pleural effusion. The patient is going for thoracentesis today. We will follow up on cytology results and fluid labs, likely secondary to ovarian cancer and fluid collection. 2. Hyperkalemia. The patient has been given Kayexalate. We will repeat potassium level. 3. Acute on chronic kidney injury. We will continue to monitor creatinine. We will avoid NSAIDs and nephrotoxins stage III. 4. Morbid obesity. BMI 43.6. 5. Ovarian cancer, stage IV. The patient is undergoing treatment at [facility]. 6. Diabetes mellitus type 2 [id number] with hyperglycemia. We will continue with Accu-Cheks and continue sliding scale insulin. 7. Hypothyroidism. We will continue Synthroid. 8. Deep venous thrombosis prophylaxis with SCDs. Plan: Follow up on thoracentesis results. CHERIE Voice ID: [id number] Report ID: [id number] KYLE
[2018-07-17] MEDS ORDERED: ATORVASTATIN 10 MG TAB PO SCH (21:00)
--- NOTE | 2018-07-17 21:15 | P.CNS ---
Date of Consult: 07/17/18 Reason for Consult: RANDELL Requesting Physician: Rafiq Clancy Chief Complaint: right pleural effusion History of Present Illness: Ms Carlisle is a 68 years old woman with history of stage IV ovarian cancer, with intrabdominal metastasis, currently on hormonal chemotherapy, who came to ED complaining of progressive weakness, SOB and lost of appetite. She denied fever or chills. She has cough with clear secretions. Lab work shows normal WBC count, hyperkalemia, worsening renal function and unremarkable UA. CT chest/abd/ pelvis shows moderate right pleural effusion with consolidation. Her daughter shows previous images from [facility] with smaller pleural effusion from 05/13. 22:11 This 68 yrs old Female presents to ER via Wheelchair with complaints of jr8 Nausea, NIGHT SWEATS, Decreased Appetite, SLEEPY, CANCER PATIENT. 22:11 Patient stated that for the past week has had nausea, night sweats, decreased appetite, jr8 sleepy, and dizziness with standing up. Stated that he had Stage 4 ovarian cancer but was cleared this past January of cancer. In April for her CT f/u found mass near colon but not inside colon. Has not started chemotherapy as of yet. Patient is an [facility] patient . Severity of symptoms: At their worst the symptoms were moderate in the emergency department the symptoms are unchanged. The patient has not experienced similar symptoms in the past. The patient has not recently seen a physician. Allergies codeine Allergy (Verified 10/04/17 13:09) Nausea/Vomiting Home medications list reviewed: Yes Home Medications: Allopurinol [Zyloprim*] 300 mg PO DAILY 10/04/17 Baclofen [Lioresal*] 10 mg PO TIDP PRN 10/04/17 Duloxetine [Cymbalta *] 30 mg PO DAILY 10/04/17 Folic Acid 800 mcg PO DAILY 10/04/17 Furosemide [Lasix*] 40 mg PO PRN 10/04/17 Gabapentin [Gralise] 300 mg PO DAILY 10/04/17 Levothyroxine [Synthroid*] 100 mcg PO [id number] 10/04/17 Lisinopril/Hydrochlorothiazide [Lisinopril-Hctz 20-12.5 mg Tab] 1 each PO DAILY 10/04/17 Metformin HCl [Glucophage*] 500 mg PO BIDWM 10/04/17 Pravastatin Sodium [Pravachol] 80 mg PO DAILY 10/04/17 Spironolactone [Aldactone*] 25 mg PO DAILY WITH BREAKFAST 10/04/17 Aspirin Chewable [Aspirin Chewable*] 1 tab PO DAILY 07/17/18 Cholecalciferol (Vitamin D3) [Vitamin D3] 1 tab PO DAILY 07/17/18 Cyanocobalamin (Vitamin B-12) [Vitamin B12] 500 mcg PO DAILY 07/17/18 Letrozole [Femara*] 1 tab PO DAILY 07/17/18 Magnesium Oxide [Magnesium] 1 tab PO DAILY 07/17/18 Omega3/Dha/Epa/Fish Oil/Vit D3 [Fish Oil-Vit D3 Softgel] 1 each PO DAILY - Past Medical/Surgical History Diabetic: Yes -: Ovarian cancer -: History of AVM with repair -: diabetes -: hypothyroidism -: Brain surgery for AVM -: removed ovaries and fallopian tubes -: Tubal ligation -: Left knee surgery x2 -: Cholecystectomy Psychosocial/ Personal History: The patient is . She has 4 children. - Family History Father Medical History: Heart disease, Cancer Notes: leukemia Mother Medical History: Lung disease, Cancer Notes: breast and lung - Social History Alcohol use: Yes CD- Drugs: No Caffeine use: Yes Place of Residence: Home Review of Systems 10-point ROS is otherwise unremarkable General: Weakness, Malaise Respiratory: SOB with Excertion Cardiovascular: Edema Physical Examination Temp Pulse Resp BP Pulse Ox 97.0 F 77 20 104/58 L 95 07/17/18 20:00 07/17/18 20:00 07/17/18 20:00 07/17/18 20:00 07/17/18 20:00 General: In no apparent distress, Oriented x3, Cooperative HEENT: Atraumatic Neck: Supple Respiratory: Clear to auscultation bilaterally, Normal air movement Cardiovascular: Regular rate/rhythm, No rubs, Edema Gastrointestinal: Soft and benign, Non-distended Musculoskeletal: No clubbing, No contractures Integumentary: No rashes, No cyanosis Neurological: Normal speech Laboratory Data (last 24 hrs) 07/16/18 22:25: PT 10.8, INR 0.91 07/16/18 22:25: WBC 7.1, Hgb 11.2 L, Hct 34.1 L, Plt Count 236 07/16/18 22:25: Sodium 141, Potassium 5.6 H*, BUN 46 H, Creatinine 2.29 H, Glucose 98, Magnesium 2.7 H, Total Bilirubin 0.3, AST 10 L, ALT 15, Alkaline Phosphatase 89 Imagings Data: EXAM DESCRIPTION: CT - Chest Abd Pelvis Wo Con - 07/17/2018 6:37 am CLINICAL HISTORY: The patient is 68 years old and is Female; lung effusion, abdominal pain with mass TECHNIQUE: Axial computed tomography images of the chest, abdomen and pelvis without intravenous contrast. Sagittal and coronal reformatted images were created and reviewed. This CT exam was performed using one or more of the following dose reduction techniques: automated exposure control, adjustment of the mA and/or kV according to patient size, and/or use of iterative reconstruction technique. COMPARISON: None. FINDINGS: CHEST: LUNGS: Consolidation with air bronchogram in the right middle and lower lobes. Punctate calcified nodule in the lateral aspect of the lingula (series 201 , image 28). PLEURAL SPACE: Moderate-sized right pleural effusion. No pneumothorax. HEART: The heart is normal in size. No pericardial effusion or coronary calcifications. THYROID: Visualized thyroid is unremarkable. ABDOMEN: LIVER: Unremarkable. GALLBLADDER AND BILE DUCTS: Prior cholecystectomy. No ductal dilatation. PANCREAS: Fatty infiltration of the pancreas. No ductal dilatation. SPLEEN: Unremarkable. No splenomegaly. ADRENALS: Unremarkable. No mass. KIDNEYS AND URETERS: No hydronephrosis or hydroureter. STOMACH AND BOWEL: Small and large bowel containing ventral hernia. No obstruction. No mucosal thickening. PELVIS: APPENDIX: The appendix is not seen. BLADDER: Unremarkable. No stones. REPRODUCTIVE: Prior hysterectomy. CHEST, ABDOMEN and PELVIS: INTRAPERITONEAL SPACE: Unremarkable. No significant fluid collection. No free air. BONES/JOINTS: Diffuse osteopenia and diffuse degenerative disc disease with reactive endplate changes and vacuum phenomenon from the midthoracic spine through the sacrum. Degenerative changes of the pubic symphysis. No acute fracture. No dislocation. SOFT TISSUES: See above. VASCULATURE: Mild atherosclerotic vascular disease. No aortic aneurysm. LYMPH NODES: No mediastinal lymphadenopathy. TUBES, LINES AND DEVICES: Right chest port with IJ approach terminating in the distal SVC. OTHER FINDINGS: Prior midline abdominal postsurgical changes. IMPRESSION: 1. Right lung base consolidation with air bronchograms concerning for pneumonia. 2. Moderate right pleural effusion and adjacent atelectasis. Underlying neoplasm cannot be excluded. No prior studies are available for comparison. 3. 1 to 2 mm lingular nodule. 4. Prior cholecystectomy. 5. Small and large bowel containing ventral hernia. No obstruction. 6. Mild atherosclerotic vascular disease. Conclusions/Impression: A/ RANDELL of unclear etiology. Hyperkalemia. CKD III. 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 LE Edema. Macrocytic anemia in chronic illness. Hypocalcemia. P/ Continue current POC and Medications. Stop IVF. Agree with diuretic therapy. Holding parameter for spironolactone. Stop Lisinopril due to hypotension. Agree with Kayexalate. No NSAIDs. AM labs. Daily weight. Thank you kindly for the consultation.
[2018-07-18 00:52] VITALS: O2SAT 93
[2018-07-18] MEDS ORDERED: VANCOMYCIN 0.75 GM in NA CHLORIDE 0.9% 500 ML IVPB SCH (04:21)
[2018-07-18 04:33] LABS: Absolute Lymphocytes (CBC) 2.5 K/uL (0.7-4.9); Absolute Monocytes 0.6 K/uL (0.1-1.3); Absolute Neutrophil 3.6 K/uL (1.8-8.0); Basophils % 0.6 % (0-1.3); Eosinophils % 4.1 % (0-4.4); Hematocrit 30.3 % (36.0-45.0); Lymphocytes % 36.1 % (15.3-44.8); MPV 8.7 fL (7.6-11.3); RBC Red Blood Cell Count 2.95 M/uL (3.86-4.86)
[2018-07-18 04:39] LABS: Phosphorus 3.4 mg/dL (2.5-4.9); Potassium 5.1 mmol/L (3.5-5.1)
[2018-07-18] MEDS ORDERED: VANCOMYCIN 2 GM in NA CHLORIDE 0.9% 500 ML IVPB SCH (06:00)
[2018-07-18] MEDS ORDERED: VANCOMYCIN 1.25 GM in NA CHLORIDE 0.9% 500 ML IVPB SCH (06:00)
[2018-07-18] MEDS ORDERED: NA CHLORIDE 0.9% 500 ML ONE (06:07)
[2018-07-18] MEDS ORDERED: VANCOMYCIN 1 GM/VIAL ONE (06:07)
[2018-07-18] MEDS ORDERED: LEVOTHYROXINE SOD 0.1 MG TAB PO SCH (06:30)
[2018-07-18] MEDS: INSULIN -REGULAR HUMAN 50 UNIT/0.5 ML ML SQ SCH (07:30)
[2018-07-18] MEDS ORDERED: SPIRONOLACTONE 25 MG TABLET PO SCH ×2 (08:00)
[2018-07-18 08:44] LABS: Urine Appearance CLEAR; Urine Bilirubin NEGATIVE (NEG); Urine Blood NEGATIVE (NEG); Urine Color YELLOW; Urine Glucose NEGATIVE (NEG); Urine Protein NEGATIVE (NEG); Urine Urobilinogen 0.2 mg/dL (0.2-1.0)
[2018-07-18] MEDS ORDERED: CYANOCOBALAMIN 500 MCG PO SCH (09:00)
[2018-07-18] MEDS ORDERED: HOME MED 1 EA UNK (Cholecalciferol (Vitamin D3) [Vitamin D3] 1 TAB) PO SCH (09:00)
[2018-07-18] MEDS ORDERED: ASPIRIN 81 MG CHEWABLE TABLET PO SCH (09:00)
[2018-07-18] MEDS ORDERED: DHA PO SCH (09:00)
[2018-07-18] MEDS ORDERED: hydroCHLOROthiazide 12.5 MG CAP PO SCH (09:00)
[2018-07-18] MEDS ORDERED: HOME MED 1 EA UNK (Magnesium Oxide [Magnesium] 1 TAB) PO SCH (09:00)
[2018-07-18] MEDS ORDERED: DULOXETINE 30 MG CAP PO SCH (09:00)
[2018-07-18] MEDS ORDERED: LETROZOLE PO SCH (09:00)
[2018-07-18] MEDS ORDERED: EPA PO SCH (09:00)
[2018-07-18] MEDS ORDERED: GABAPENTIN 300 MG CAP PO SCH (09:00)
[2018-07-18] MEDS ORDERED: ALLOPURINOL 300 MG TAB PO SCH (09:00)
[2018-07-18] MEDS ORDERED: VIT D3 PO SCH (09:00)
[2018-07-18] MEDS ORDERED: LISINOPRIL 20 MG TAB PO SCH ×2 (09:00)
[2018-07-18] MEDS ORDERED: FOLIC ACID 1 MG TABLET PO SCH (09:00)
[2018-07-18] MEDS ORDERED: OMEGA3 PO SCH (09:00)
[2018-07-18] MEDS ORDERED: HOME MED 1 EA UNK (Lisinopril/Hydrochlorothiazide [Lisinopril-Hctz 20-12.5 Mg Tab] 1 EACH) PO SCH (09:00)
[2018-07-18] MEDS ORDERED: FISH OIL PO SCH (09:00)
[2018-07-18 10:56] LABS: Urine Bacteria <20 /HPF (<20); Urine Culture Reflex Order NOT NEEDED; Urine RBC <5 /HPF (NONE SEEN)
[2018-07-18 11:00] LABS: UR MICROALBUMIN < 0.5 mg/dL (< 1.9)
[2018-07-18 12:14] VITALS: BP 112/56; TEMP 97.1
--- NOTE | 2018-07-18 15:34 | P.DS ---
Admission Date: 07/17/18 Discharge Date: 07/18/18 Disposition: ROUTINE DISCHARGE Discharge Condition: GOOD Reason for Admission: right pleural effusion Consultations: Pulmonology Radiology - Problems (1) Pleural effusion Status: Acute (2) Acute kidney injury superimposed on CKD Status: Resolved (3) Ovarian cancer Onset Date: 10/05/17 Status: Chronic Qualifiers: Laterality: unspecified laterality Qualified Code(s): C56.9 - Malignant neoplasm of unspecified ovary (4) Diabetes Status: Chronic Qualifiers: Diabetes mellitus type: type 2 Diabetes mellitus long distance operator insulin use: without custodial use Diabetes mellitus complication status: without complication Qualified Code(s): E11.9 - Type 2 diabetes mellitus without complications (5) Hypothyroid Status: Chronic Qualifiers: Hypothyroidism type: acquired Qualified Code(s): E03.9 - Hypothyroidism, unspecified Brief History of Present Illness: Ms Carlisle is a 68 years old woman with history of stage IV ovarian cancer, with intrabdominal metastasis, currently on hormonal chemotherapy, who came to ED complaining of progressive weakness, SOB and lost of appetite. She denied fever or chills. She has cough with clear secretions. Lab work shows normal WBC count, hyperkalemia, worsening renal function and unremarkable UA. CT chest/abd/ pelvis shows moderate right pleural effusion with consolidation. Her daughter shows previous images from [facility] with smaller pleural effusion from 05/13. Hospital Course: Overall during the hospital Stay Pt remained stable. Pt was initially admitted to the hospital for SOB and was found to have Right sided Pleural Effusion. Pulmonology was consulted and radiology was consulted. Patient had a thoracentesis done with radiology and had marked resolution of her symptoms. Patient has been pleural fusion as most likely secondary to ovarian cancer. However fluid was still sent for analysis. Patient was doing much better and thus was discharged home under stable condition was asked to follow up with her primary care doctor in about 1-2 days post discharge. Patient has an appointment with [facility] tomorrow for her ovarian cancer. PCP will be following up with patient's fluid analysis from the thoracentesis. Patient was given a printout of her lab results along with imaging and a CD copy of her CT scan to take it with her to [facility]. Vital Signs/Physical Exam: Temp Pulse Resp BP Pulse Ox 97.1 F 65 16 112/56 L 95 07/18/18 12:00 07/18/18 12:00 07/18/18 12:00 07/18/18 12:00 07/18/18 12:00 General: Alert, In no apparent distress HEENT: Atraumatic, PERRLA, EOMI Neck: Supple, JVD not distended Respiratory: Clear to auscultation bilaterally, Normal air movement Cardiovascular: Regular rate/rhythm, Normal S1 S2 Gastrointestinal: Normal bowel sounds, No tenderness Musculoskeletal: No tenderness Integumentary: No rashes Neurological: Normal speech, Normal tone, Normal affect Lymphatics: No axilla or inguinal lymphadenopathy Laboratory Data at Discharge: WBC 7.0 K/uL (4.3-10.9) 07/18/18 03:37 Hgb 9.9 g/dL (12.0-15.0) L 07/18/18 03:37 Hct 30.3 % (36.0-45.0) L 07/18/18 03:37 Plt Count 199 K/uL (152-406) 07/18/18 03:37 PT 10.8 SECONDS (9.5-12.5) 07/16/18 22:25 INR 0.91 07/16/18 22:25 Sodium 144 mmol/L (136-145) 07/18/18 03:37 Potassium 5.1 mmol/L (3.5-5.1) 07/18/18 03:37 BUN 32 mg/dL (7-18) H 07/18/18 03:37 Creatinine 1.58 mg/dL (0.55-1.3) H 07/18/18 03:37 Glucose 100 mg/dL (74-106) 07/18/18 03:37 Uric Acid 4.0 mg/dL (2.6-6.0) 07/18/18 03:37 Phosphorus 3.4 mg/dL (2.5-4.9) 07/18/18 03:37 Magnesium 2.7 mg/dL (1.8-2.4) H 07/16/18 22:25 Total Bilirubin 0.3 mg/dL (0.2-1.0) 07/16/18 22:25 AST 10 U/L (15-37) L 07/16/18 22:25 ALT 15 U/L (12-78) 07/16/18 22:25 Alkaline Phosphatase 89 U/L (45-117) 07/16/18 22:25 Home Medications: Allopurinol [Zyloprim*] 300 mg PO DAILY 10/04/17 Baclofen [Lioresal*] 10 mg PO TIDP PRN 10/04/17 Duloxetine [Cymbalta *] 30 mg PO DAILY 10/04/17 Folic Acid 800 mcg PO DAILY 10/04/17 Furosemide [Lasix*] 40 mg PO PRN 10/04/17 Gabapentin [Gralise] 300 mg PO DAILY 10/04/17 Levothyroxine [Synthroid*] 100 mcg PO [id number] 10/04/17 Lisinopril/Hydrochlorothiazide [Lisinopril-Hctz 20-12.5 mg Tab] 1 each PO DAILY 10/04/17 Metformin HCl [Glucophage*] 500 mg PO BIDWM 10/04/17 Pravastatin Sodium [Pravachol] 80 mg PO DAILY 10/04/17 Spironolactone [Aldactone*] 25 mg PO DAILY WITH BREAKFAST 10/04/17 Aspirin Chewable [Aspirin Chewable*] 1 tab PO DAILY 07/17/18 Cholecalciferol (Vitamin D3) [Vitamin D3] 1 tab PO DAILY 07/17/18 Cyanocobalamin (Vitamin B-12) [Vitamin B12] 500 mcg PO DAILY 07/17/18 Letrozole [Femara*] 1 tab PO DAILY 07/17/18 Magnesium Oxide [Magnesium] 1 tab PO DAILY 07/17/18 Omega3/Dha/Epa/Fish Oil/Vit D3 [Fish Oil-Vit D3 Softgel] 1 each PO DAILY Patient Discharge Instructions: Please followup with pulmonology in primary care provider in about 1-2 days Diet: Regular Activity: Ad fatmata Followup: Hammad Jackson MD [ACTIVE - CAN ADMIT] - 1-2 Weeks Rebel Shoemaker DO [Primary Care Provider] -
--- NOTE | 2018-07-18 21:41 | P.PN ---
Date of Service: 07/18/18 Vital Signs Temp Pulse Resp BP Pulse Ox 97.1 F 65 16 112/56 L 95 07/18/18 12:00 07/18/18 12:00 07/18/18 12:00 07/18/18 12:00 07/18/18 12:00 Microbiology Results 07/17/18 03:08 Blood - Blood Aerobic Blood Culture - Preliminary No growth in 24 hours. 07/17/18 03:08 Blood - Blood Anaerobic Blood Culture - Preliminary 07/17/18 03:08 Blood - Blood Gram Stain - Preliminary 07/17/18 03:00 Blood - Blood Aerobic Blood Culture - Preliminary No growth in 24 hours. 07/17/18 03:00 Blood - Blood Anaerobic Blood Culture - Preliminary No growth in 24 hours. Assessment/ Plan: Nephrology. Feeling better. CPS stable without CP or SOB. No acute events overnight. No pain. Vitals, medications, blood work and imaging reviewed in the chart. General: In no apparent distress, Oriented x3, Cooperative HEENT: Atraumatic Neck: Supple Respiratory: Clear to auscultation bilaterally, Normal air movement Cardiovascular: Regular rate/rhythm, No rubs, Edema Gastrointestinal: Soft and benign, Non-distended Musculoskeletal: No clubbing, No contractures Integumentary: No rashes, No cyanosis Neurological: Normal speech Laboratory Data (last 24 hrs) 07/16/18 22:25: PT 10.8, INR 0.91 07/16/18 22:25: WBC 7.1, Hgb 11.2 L, Hct 34.1 L, Plt Count 236 07/16/18 22:25: Sodium 141, Potassium 5.6 H*, BUN 46 H, Creatinine 2.29 H, Glucose 98, Magnesium 2.7 H, Total Bilirubin 0.3, AST 10 L, ALT 15, Alkaline Phosphatase 89 Imagings Data: EXAM DESCRIPTION: CT - Chest Abd Pelvis Wo Con - 07/17/2018 6:37 am CLINICAL HISTORY: The patient is 68 years old and is Female; lung effusion, abdominal pain with mass TECHNIQUE: Axial computed tomography images of the chest, abdomen and pelvis without intravenous contrast. Sagittal and coronal reformatted images were created and reviewed. This CT exam was performed using one or more of the following dose reduction techniques: automated exposure control, adjustment of the mA and/or kV according to patient size, and/or use of iterative reconstruction technique. COMPARISON: None. FINDINGS: CHEST: LUNGS: Consolidation with air bronchogram in the right middle and lower lobes. Punctate calcified nodule in the lateral aspect of the lingula (series 201 , image 28). PLEURAL SPACE: Moderate-sized right pleural effusion. No pneumothorax. HEART: The heart is normal in size. No pericardial effusion or coronary calcifications. THYROID: Visualized thyroid is unremarkable. ABDOMEN: LIVER: Unremarkable. GALLBLADDER AND BILE DUCTS: Prior cholecystectomy. No ductal dilatation. PANCREAS: Fatty infiltration of the pancreas. No ductal dilatation. SPLEEN: Unremarkable. No splenomegaly. ADRENALS: Unremarkable. No mass. KIDNEYS AND URETERS: No hydronephrosis or hydroureter. STOMACH AND BOWEL: Small and large bowel containing ventral hernia. No obstruction. No mucosal thickening. PELVIS: APPENDIX: The appendix is not seen. BLADDER: Unremarkable. No stones. REPRODUCTIVE: Prior hysterectomy. CHEST, ABDOMEN and PELVIS: INTRAPERITONEAL SPACE: Unremarkable. No significant fluid collection. No free air. BONES/JOINTS: Diffuse osteopenia and diffuse degenerative disc disease with reactive endplate changes and vacuum phenomenon from the midthoracic spine through the sacrum. Degenerative changes of the pubic symphysis. No acute fracture. No dislocation. SOFT TISSUES: See above. VASCULATURE: Mild atherosclerotic vascular disease. No aortic aneurysm. LYMPH NODES: No mediastinal lymphadenopathy. TUBES, LINES AND DEVICES: Right chest port with IJ approach terminating in the distal SVC. OTHER FINDINGS: Prior midline abdominal postsurgical changes. IMPRESSION: 1. Right lung base consolidation with air bronchograms concerning for pneumonia. 2. Moderate right pleural effusion and adjacent atelectasis. Underlying neoplasm cannot be excluded. No prior studies are available for comparison. 3. 1 to 2 mm lingular nodule. 4. Prior cholecystectomy. 5. Small and large bowel containing ventral hernia. No obstruction. 6. Mild atherosclerotic vascular disease. Conclusions/Impression: A/ RANDELL of unclear etiology. Hyperkalemia. CKD III. 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 LE Edema. Macrocytic anemia in chronic illness. Hypocalcemia. P/ Continue current POC and Medications. Continue diuretic therapy. Holding parameter for spironolactone. Consider another dose of Kayexalate. No NSAIDs. AM labs. Daily weight.
== END 2018-07-18 12:10 | disposition home or self-care (01) ==
LOC: ER 21:14 → ERHOLD 07-17 03:29 → INTOOBSV 07-17 03:29 → 4TH 07-17 04:30
PROVIDERS: ADMIT Internal Medicine; ATTEND Internal Medicine
PROC: 0W993ZZ Drainage of Right Pleural Cavity, Percutaneous Approach (ICD-10-PCS; principal; 2018-07-17)
DX: J90 Pleural effusion, not elsewhere classified (principal); I12.9 Hypertensive chronic kidney disease with stage 1 through stage 4 chronic kidney disease, or unspecified chronic kidney disease; E11.22 Type 2 diabetes mellitus with diabetic chronic kidney disease; N18.3 Chronic kidney disease, stage 3 (moderate); N17.9 Acute kidney failure, unspecified; E87.5 Hyperkalemia; E83.51 Hypocalcemia; C56.9 Malignant neoplasm of unspecified ovary; D53.9 Nutritional anemia, unspecified; E66.01 Morbid (severe) obesity due to excess calories; Z68.41 Body mass index [BMI] 40.0-44.9, adult; E03.9 Hypothyroidism, unspecified; Z87.891 Personal history of nicotine dependence
CPT/HCPCS: 96365; 96361; 93005; 87040 ×2; 85025 ×2; 81001; 80048 ×2; 36415 ×2; 83735; 87205 ×2; 83615; 84100; 84132; 85610; 82962 ×7; 80076; 84550; 83605; 81003; 82570; 84484; 84145; 83880; 82043; 70450; 71250; 74176; 71045; 32555 ×2; 94760 ×3; 96375; 99285; J7030 ×2; G0378 ×2; 87077; 87186; J2405

== ENCOUNTER 2018-12-26 14:20 | Emergency (ER) | payer OTHER ==
--- OUTSIDE RECORDS SUMMARY | 2018-12-26 14:22 | XMS REPORT ---
[...] Status Dosage System Date Date Levothyroxine ND 52357643432 100 MCG Orally Active 1 tablet on Sodium Once a day an empty stomach in the morning Spironolactone ND 98485400160 25 MG Orally Active 1 tablet with Once a day food Spironolactone ND 41616404909 25 MG Orally Active 1 tablet with Once a day food Minocycline-Acne NDC 0 Active not defined Care Products Furosemide ND 17214436497 40 MG Orally Active 1 tablet Once a day Vitamin D ND 42274283013 1000 UNIT Active 1 capsule (Cholecalciferol) Orally Once a day Metformin HCl [facility] 56463931024 500 MG Orally Active 1 tablet with BID a meal Gabapentin [facility] 88281486528 300 MG Orally Active 1 capsule Once a day before bedtime Lisinopril-Hydroc [facility] 60594472482 20-25 MG Active 1 tablet hlorothiazide Orally Once a day Metronidazole [facility] 19938591046 0.75 % Active 1 application Externally to affected Twice a day area [place] 3 [facility] 87432516462 1000 MG Orally Active 1 capsule Once a day Baclofen [facility] 58629548064 10 MG Orally Active 1 tablet with Three times a food or milk day Duloxetine HCl [facility] 49169876577 30 MG Orally Active 1 capsule Once a day Magnesium [facility] 21178770119 500 MG Orally Active 1 tablet with Once a day a meal Pravastatin [facility] 83714329477 80 MG Orally Active 1 tablet Sodium Once a day Folic Acid [facility] 75865764581 1 MG Orally Active 1 tablet Once a day Lisinopril-Hydroc [facility] 03762065976 20-25 MG Active 1 tablet hlorothiazide Orally Once a day Aspirin 81 [facility] 08541436263 81 MG Orally Active 1 tablet Once a day Results No Known Results Summary Purpose eClinicalWorks Submission
--- OUTSIDE RECORDS SUMMARY | 2018-12-26 14:22 | XMS REPORT ---
[...] End Status Dosage System Date Date Levothyroxine [facility] 48990044703 100 MCG Orally Active 1 tablet on Sodium Once a day an empty stomach in the morning Duloxetine HCl [facility] 25957570267 30 MG Orally Active 1 capsule Once a day Minocycline-Acne ND 0 Active not defined Care Products Spironolactone [facility] 28440766548 25 MG Orally Active 1 tablet with Once a day food Magnesium [facility] 82699457043 500 MG Orally Active 1 tablet with Once a day a meal Metronidazole [facility] 04159094658 0.75 % Active 1 application Externally to affected Twice a day area Baclofen ND 38443390577 10 MG Orally Active 1 tablet with Three times a food or milk day Folic Acid ND 44828867791 1 MG Orally Active 1 tablet Once a day [place] 3 ND 63800391922 1000 MG Orally Active 1 capsule Once a day Pravastatin ND 60978542957 80 MG Orally Active 1 tablet Sodium Once a day Lisinopril-Hydroc ND 76435879979 20-25 MG Active 1 tablet hlorothiazide Orally Once a day Vitamin D [facility] 95488450254 1000 UNIT Active 1 capsule (Cholecalciferol) Orally Once a day Gabapentin [facility] 49010988140 300 MG Orally Active 1 capsule Once a day before bedtime Azithromycin [facility] 85505633567 250 MG Orally May 16Apr Active 2 tablets on Once a day 2018, the first 2018 day, then 1 tablet daily for 4 days Aspirin 81 [facility] 86152671506 81 MG Orally Active 1 tablet Once a day Furosemide [facility] 27872701578 40 MG Orally Active 1 tablet Once a day Metformin HCl [facility] 17000705878 500 MG Orally Active 1 tablet with BID a meal Benzonatate [facility] 02710854916 200 MG Orally May 16May Active 1 capsule Three times a 2018 Results No Known Results Summary Purpose eClinicalWorks Submission
--- OUTSIDE RECORDS SUMMARY | 2018-12-26 14:22 | XMS REPORT ---
[...] End Status Dosage System Date Date Metronidazole [facility] 34734598504 0.75 % Active 1 application Externally to affected Twice a day area Aspirin 81 [facility] 06915619632 81 MG Orally Active 1 tablet Once a day Furosemide ND 14390874746 40 MG Orally Active 1 tablet Once a day Spironolactone [facility] 97641833610 25 MG Orally Active 1 tablet with Once a day food Folic Acid [facility] 94651111292 1 MG Orally Active 1 tablet Once a day Duloxetine HCl [facility] 84786359604 30 MG Orally Active 1 capsule Once a day [place] 3 [facility] 66387201837 1000 MG Orally Active 1 capsule Once a day Pravastatin [facility] 35995222705 80 MG Orally Active 1 tablet Sodium Once a day Baclofen [facility] 02977995775 10 MG Orally Active 1 tablet with Three times a food or milk day Magnesium [facility] 65580491817 500 MG Orally Active 1 tablet with Once a day a meal Vitamin D [facility] 32800957280 1000 UNIT Active 1 capsule (Cholecalciferol Orally Once a ) day Levothyroxine [facility] 87384432830 112 MCG Orally Inactive 1 tablet on Sodium Once a day an empty stomach in the morning Metformin HCl [facility] 44436185746 500 MG Orally Active 1 tablet with BID a meal Metformin HCl [facility] 45161731251 500 MG Orally Active 1 tablet with BID a meal Gabapentin [facility] 87381634200 300 MG Orally Active 1 capsule Once a day before bedtime Levothyroxine [facility] 57050160912 100 MCG Orally Dec 07, Active 1 tablet on Sodium Once a day 2017 an empty stomach in the morning Minocycline-Acne ND 0 Active not defined Care Products Lisinopril-[place] [facility] 55139780664 20-25 MG Active 1 tablet chlorothiazide Orally Once a day Results No Known Results Summary Purpose eClinicalWorks Submission
--- OUTSIDE RECORDS SUMMARY | 2018-12-26 14:22 | XMS REPORT ---
:1950 Author Organization eClinicalWorks Care Team Providers Name Role Phone Navid Rebel Provider Role Unavailable Allergies, Adverse Reactions, Alerts [...] neoplasm of left ovary C56.2 Active Assessment HTN (hypertension), benign I10 Active Assessment Controlled type 2 diabetes mellitus E11.9 Active without complication, without long-term current use of insulin Assessment Screening for depression Z13.31 Active Assessment Encounter for screening mammogram Z12.31 Active for breast cancer Assessment Encounter for screening for other Z13.89 Active disorder Assessment Medicare annual wellness visit, Z00.00 Active subsequent Medications Medication Code Code Instructions Start End Status Dosage System Date Date Metronidazole [facility] 12259287681 0.75 % Active 1 application Externally to affected Twice a day area Aspirin 81 [facility] 35959376651 81 MG Orally Active 1 tablet Once a day Furosemide [facility] 57133737264 40 MG Orally Active 1 tablet Once a day Lisinopril-Hydroc [facility] 81920125108 20-25 MG Active 1 tablet hlorothiazide Orally Once a day Spironolactone [facility] 74620072920 25 MG Orally Active 1 tablet with Once a day food Folic Acid [facility] 07208613392 1 MG Orally Active 1 tablet Once a day Levothyroxine [facility] 51303533564 100 MCG Orally Active 1 tablet on Sodium Once a day an empty stomach in the morning Gabapentin [facility] 06442901953 300 MG Orally Active 1 capsule Once a day before bedtime Baclofen [facility] 05187483897 10 MG Orally Active 1 tablet with Three times a food or milk day Vitamin D [facility] 91467375884 1000 UNIT Active 1 capsule (Cholecalciferol) Orally Once a day Magnesium [facility] 24843224148 500 MG Orally Active 1 tablet with Once a day a meal Lisinopril-Hydroc [facility] 09724343271 20-25 MG Active 1 tablet hlorothiazide Orally Once a day Metformin HCl [facility] 62088788680 500 MG Orally Active 1 tablet with BID a meal Spironolactone [facility] 70834699553 25 MG Orally Active 1 tablet with Once a day food Duloxetine HCl [facility] 88589630697 30 MG Orally Active 1 capsule Once a day Minocycline-Acne ND 0 Active not defined Care Products [place] 3 [facility] 89395211506 1000 MG Orally Active 1 capsule Once a day Pravastatin [facility] 24851630832 80 MG Orally Active 1 tablet Sodium Once a day Results No Known Results Summary Purpose eClinicalWorks Submission
--- OUTSIDE RECORDS SUMMARY | 2018-12-26 14:22 | XMS REPORT ---
:1950 Author Organization eClinicalWorks Care Team Providers Name Role Phone Navid Rebel Provider Role Unavailable Allergies, Adverse Reactions, Alerts Substance Reaction Event Type N.K.D.A. Info Not Available Non Drug Allergy Problems Problem Type Condition Code Onset Dates Condition Status Problem Venous insufficiency I87.2 Active Problem Rheumatoid arthritis involving M06.9 Active multiple sites, unspecified rheumatoid factor presence Problem Controlled type 2 diabetes mellitus E11.9 Active without complication, without long-term current use of insulin Problem HTN (hypertension), benign I10 Active Problem Mixed hyperlipidemia E78.2 Active Problem Thrombocytopenia D69.6 Active Problem Gout, unspecified cause, unspecified M10.9 Active chronicity, unspecified site Problem Hypothyroidism, unspecified type E03.9 Active Problem Malignant neoplasm of right ovary C56.1 Active Problem Malignant neoplasm of left ovary C56.2 Active Assessment Malignant neoplasm of left ovary C56.2 Active Assessment Malignant neoplasm of right ovary C56.1 Active Assessment Thrombocytopenia D69.6 Active Assessment Epistaxis, recurrent R04.0 Active Assessment Anemia, unspecified type D64.9 Active Medications Medication Code Code Instructions Start End Status Dosage System Date Date Levothyroxine [facility] 88172912486 100 MCG Orally Active 1 tablet on Sodium Once a day an empty stomach in the morning Duloxetine HCl [facility] 23815203602 30 MG Orally Active 1 capsule Once a day Metformin HCl [facility] 01543792346 500 MG Orally Active 1 tablet with BID a meal Avastin [facility] 49102178936 100 MG/4ML Active as directed Intravenous Aspirin 81 [facility] 63963437373 81 MG Orally Active 1 tablet Once a day Magnesium [facility] 44908477877 500 MG Orally Active 1 tablet with Once a day a meal [place] 3 [facility] 82110470130 1000 MG Orally Active 1 capsule Once a day Minocycline-Acne NDC 0 Active not defined Care Products Baclofen [facility] 28346105797 10 MG Orally Active 1 tablet with Three times a food or milk day Folic Acid [facility] 16097891355 1 MG Orally Active 1 tablet Once a day Furosemide [facility] 82275039592 40 MG Orally Active 1 tablet Once a day Spironolactone [facility] 05566964024 25 MG Orally Active 1 tablet with Once a day food Pravastatin [facility] 74765439504 80 MG Orally Active 1 tablet Sodium Once a day Vitamin D [facility] 47038080516 1000 UNIT Active 1 capsule (Cholecalciferol) Orally Once a day Gabapentin [facility] 15003804775 300 MG Orally Active 1 capsule Once a day before bedtime Metronidazole [facility] 74982188377 0.75 % Active 1 application Externally to affected Twice a day area Spironolactone [facility] 77889817158 25 MG Orally Active 1 tablet with Once a day food Results No Known Results Summary Purpose eClinicalWorks Submission
--- OUTSIDE RECORDS SUMMARY | 2018-12-26 14:22 | XMS REPORT ---
[...] without long-term current use of insulin Assessment Venous insufficiency I87.2 Active Problem HTN (hypertension), benign I10 Active Problem Mixed hyperlipidemia E78.2 Active Problem Venous insufficiency I87.2 Active Problem Gout, unspecified cause, unspecified M10.9 Active chronicity, unspecified site Problem Hypothyroidism, unspecified type E03.9 Active Problem Malignant neoplasm of right ovary C56.1 Active Problem Malignant neoplasm of left ovary C56.2 Active Medications Medication Code System Code Instructions Start Date End Date Status Dosage Furosemide [facility] 18193399760 40 MG Orally Once Active 1 tablet a day Results No Known Results Summary Purpose [employer] Submission
--- OUTSIDE RECORDS SUMMARY | 2018-12-26 14:22 | XMS REPORT ---
[...] End Status Dosage System Date Date Levothyroxine [facility] 44838567400 112 MCG Orally Inactive 1 tablet Sodium Once a day on an empty stomach in the morning Levothyroxine ND 99398940494 100 MCG Orally Dec 07, Active 1 tablet Sodium Once a day 2017 on an empty stomach in the morning Results No Known Results Summary Purpose eClinicalWorks Submission
--- OUTSIDE RECORDS SUMMARY | 2018-12-26 14:22 | XMS REPORT ---
[...] End Status Dosage System Date Date Pravastatin [facility] 93534047466 80 MG Orally Active 1 tablet Sodium Once a day Levothyroxine [facility] 10842894029 100 MCG Orally Active 1 tablet Sodium Once a day on an empty stomach in the morning Results No Known Results Summary Purpose eClinicalWorks Submission
--- OUTSIDE RECORDS SUMMARY | 2018-12-26 14:22 | XMS REPORT ---
[...] Status Dosage System Date Date Spironolactone ND 06789907714 25 MG Orally May 02, Active 1 tablet Once a day 2018 with food Lisinopril-Hydroch ND 57302522595 20-25 MG Orally Active 1 tablet lorothiazide Once a day Results No Known Results Summary Purpose eClinicalWorks Submission
--- NOTE | 2018-12-26 16:57 | RAD REPORT ---
EXAM DESCRIPTION: RAD - Sacrum And Coccyx - 12/26/2018 4:19 pm CLINICAL HISTORY: PAIN, patient details pelvic and sacral pain following fall, history of colon and ovarian cancer COMPARISON: None. TECHNIQUE: AP 15 degree cephalad, AP 10 degree caudal and lateral sacrum/ coccyx views were obtained . FINDINGS: No compression fracture of L4 or L5. Slight narrowing of the L4-5 disc space noted. Advanc ed degenerative change at L5-S1 seen with disc space narrowing, endplate spurring and degenerative ga s in the disc space. SI joint degenerative change is mild. Pubic symphysis degenerative changes are n oted. Patient has phleboliths. No sacral ala fracture identifiable on these views. No coccyx fracture. No pathologic bone process se en. No presacral soft tissue thickening. IMPRESSION: No fracture or acute finding of the sacrum and coccyx. Advanced L5-S1 disc and endplate degenerative change.
--- NOTE | 2018-12-26 16:58 | RAD REPORT ---
EXAM DESCRIPTION: RAD - Knee Right 3 View - 12/26/2018 4:19 pm CLINICAL HISTORY: Fall, right knee pain COMPARISON: None. FINDINGS: No fracture, dislocation or periosteal reaction.No joint effusion seen. No joint space jenise rowing. No foreign body or other soft tissue abnormality. IMPRESSION: Negative right knee. Clinical concerns for internal derangement or occult bony injury could be further assessed with MR im aging.
--- NOTE | 2018-12-26 16:58 | RAD REPORT ---
EXAM DESCRIPTION: RAD - Knee Left 3 View - 12/26/2018 4:19 pm CLINICAL HISTORY: Fall, left knee pain COMPARISON: None. FINDINGS: No fracture, dislocation or periosteal reaction.No joint effusion seen. Mild narrowing of the medial compartment seen with minimal marginal spurring. No soft tissue abnormality. IMPRESSION: Mild for age degenerative change of the left knee. No acute finding. Clinical concerns for internal derangement or occult bony injury could be further assessed with MR im aging.
--- NOTE | 2018-12-26 17:00 | RAD REPORT ---
EXAM DESCRIPTION: RAD - Foot Right 3 View - 12/26/2018 4:19 pm CLINICAL HISTORY: Fall, right foot pain COMPARISON: None. FINDINGS: No gross fracture deformity seen. There is no dislocation or periosteal reaction. Oblique view shows questionable fracture involving the base of the fifth proximal phalanx. No distraction or angulation. This is a subtle finding on the single view and needs correlation with physical exam find ings. Patient has degenerative change at the first MTP joint with joint space narrowing and minimal spurrin g. No other significant IP joint or MTP joint degenerative change noted. Patient has a small to moder ate size plantar spur. Prominent swelling over the dorsum of the foot but no foreign body seen. The IMPRESSION: Suspected nondisplaced fracture involving the base of the right fifth proximal phalanx. Correlation is needed with any pain symptoms localizing near the fifth MTP joint. Prominent soft tissue swelling without air or foreign body. Small to moderate plantar spur.
--- NOTE | 2018-12-26 17:22 | EDPHYS ---
Physician Documentation [facility] Name: Maria Del Carmen Carlisle Age: 68 yrs Sex: Female : 1950 Arrival Date: 12/26/2018 Time: 14:23 Bed 11 Private MD: Rebel Shoemaker ED Physician Carlos Perdomo HPI: 12/26 15:53 This 68 yrs old Female presents to ER via Wheelchair with complaints of Fall pm1 Injury. 15:53 Details of fall: The patient fell from seated position, out of a chair. Onset: The pm1 symptoms/episode began/occurred just prior to arrival. Associated injuries: The patient sustained right knee and left knee coccyx, contusion, tenderness, right foot, ecchymosis, swelling. Severity of symptoms: in the emergency department the symptoms are actually worse. The patient has experienced a previous episode, coccyx fracture many years ago. Patient fell from chair while trying to catch her grandson. Patient felt her right toe bend back and then landed on both of her knees and then landed on her buttocks. Patient was able to stand and walk after the fall. No head injury, headache, neck pain, LOC. Historical: - Allergies: 14:37 Codeine (Vomiting); hb - Home Meds: 14:37 Allopurinol Oral [Active]; Chemotherapy [Active]; levothyroxine oral [Active]; hb gabapentin Oral [Active]; Metformin Oral [Active]; - PMHx: 14:37 brain aneurysm; colon cancer; Hypothyroidism; ovarian CA; Back pain; hb - PSHx: 14:37 ovaries; Knee surgery; fallopian tubes; brain; Hysterectomy; hb - Immunization history:: Adult Immunizations up to date. - Social history:: Smoking status: Patient/guardian denies using tobacco. - Ebola Screening: : No symptoms or risks identified at this time. ROS: 15:53 Constitutional: Negative for fever, chills, and weight loss, Eyes: Negative for injury, pm1 pain, redness, and discharge, ENT: Negative for injury, pain, and discharge, Neck: Negative for injury, pain, and swelling, Cardiovascular: Negative for chest pain, palpitations, and edema, Respiratory: Negative for shortness of breath, cough, wheezing, and pleuritic chest pain, Abdomen/GI: Negative for abdominal pain, nausea, vomiting, diarrhea, and constipation. 15:53 Neuro: Negative for headache, weakness, numbness, tingling, and seizure. 15:53 Back: Positive for of the sacrum, pain. 15:53 MS/extremity: Positive for pain, of the right foot and right knee and left knee, swelling to lateral aspect of distal right foot. 15:53 Skin: Positive for ecchymosis, of the right foot. Exam: 15:53 Constitutional: This is a well developed, well nourished patient who is awake, alert, pm1 and in no acute distress. Head/Face: Normocephalic, atraumatic. Eyes: Pupils equal round and reactive to light, extra-ocular motions intact. Lids and lashes normal. Conjunctiva and sclera are non-icteric and not injected. Cornea within normal limits. Periorbital areas with no swelling, redness, or edema. ENT: Nares patent. No nasal discharge, no septal abnormalities noted. Tympanic membranes are normal and external auditory canals are clear. Oropharynx with no redness, swelling, or masses, exudates, or evidence of obstruction, uvula midline. Mucous membranes moist. Neck: Trachea midline, no thyromegaly or masses palpated, and no cervical lymphadenopathy. Supple, full range of motion without nuchal rigidity, or vertebral point tenderness. No Meningismus. Chest/axilla: Normal chest wall appearance and motion. Nontender with no deformity. No lesions are appreciated. Cardiovascular: Regular rate and rhythm with a normal S1 and S2. No gallops, murmurs, or rubs. Normal PMI, no JVD. No pulse deficits. Respiratory: Lungs have equal breath sounds bilaterally, clear to auscultation and percussion. No rales, rhonchi or wheezes noted. No increased work of breathing, no retractions or nasal flaring. Abdomen/GI: Soft, non-tender, with normal bowel sounds. No distension or tympany. No guarding or rebound. No evidence of tenderness throughout. Back: No spinal tenderness. No costovertebral tenderness. Full range of motion. 15:53 Skin: Appearance: normal except for affected area, injury, contusion(s), that are superficial, of the lateral aspect of right toes, lateral side of right foot and right fifth toe. 15:53 Neuro: Orientation: is normal, Motor: is normal, moves all fours. Vital Signs: 14:35 BP 118 / 56; Pulse 71; Resp 16; Temp 98.2; Pulse Ox 100% on R/A; Weight 105.23 kg; hb Height 5 ft. 3 in. (160.02 cm); Pain 5/10; 14:35 Body Mass Index 41.10 (105.23 kg, 160.02 cm) hb MDM: 15:27 Patient medically screened. pm1 17:17 Data reviewed: vital signs. Data interpreted: Pulse oximetry: on room air is 100 %. pm1 Interpretation: normal. Counseling: I had a detailed discussion with the patient and/or guardian regarding: the historical points, exam findings, and any diagnostic results supporting the discharge/admit diagnosis, radiology results, the need for outpatient follow up, to return to the emergency department if symptoms worsen or persist or if there are any questions or concerns that arise at home. 12/26 15:52 Order name: Sacrum And Coccyx XRAY pm1 12/26 15:52 Order name: Knee Right 3 View XRAY pm1 12/26 15:52 Order name: Knee Left 3 View XRAY pm1 12/26 15:52 Order name: Foot Right 3 View XRAY pm1 12/26 17:19 Order name: Post-op Orthopedic Shoe; Complete Time: 17:39 pm1 12/26 17:19 Order name: Misc. Order: Anil tape 5th and 4th right toes; Complete Time: 17:39 pm1 Administered Medications: No medications were administered Disposition: 21:49 Co-signature as Attending Physician, Carlos Perdomo MD Available for consultation at ps1 all times . Disposition: 12/26/18 17:19 Discharged to Home. Impression: Nondisplaced unspecified fracture of right lesser toe(s), Contusion of lower back and pelvis, Contusion of left knee, Contusion of right knee. - Condition is Stable. - Discharge Instructions: Contusion, Tailbone Injury, Toe Fracture, Knee Pain. - Medication Reconciliation Form, Thank You Letter, Antibiotic Education, Prescription Opioid Use form. - Follow up: Emergency Department; When: As needed; Reason: Worsening of condition. Follow up: Private Physician; When: 2 - 3 days; Reason: Recheck today's complaints, Continuance of care, Re-evaluation by your physician. - Problem is new. - Symptoms have improved. Signatures: Dispatcher [employer] EDMS Kika Albert RN RN aj1 Luan Capellan, BRIDGES SUPERVISOR BRIDGES SUPERVISOR pm1 Colleen Moore RN RN hb Carlos Perdomo MD MD ps1 Corrections: (The following items were deleted from the chart) 17:26 15:53 Skin: Appearance: normal except for affected area, injury, contusion(s), that are pm1 superficial, of the right foot, pm1 17:42 17:19 12/26/2018 17:19 Discharged to Home. Impression: Nondisplaced unspecified aj1 fracture of right lesser toe(s)Contusion of lower back and pelvis; Contusion of left knee; Contusion of right knee. Condition is Stable. Forms are Medication Reconciliation Form, Thank You Letter, Antibiotic Education, Prescription Opioid Use. Follow up: Emergency Department; When: As needed; Reason: Worsening of condition. Follow up: Private Physician; When: 2 - 3 days; Reason: Recheck today's complaints, Continuance of care, Re-evaluation by your physician. Problem is new. Symptoms have improved. pm1
--- NOTE | 2018-12-26 17:22 | ER ---
Nurse's Notes [facility] Name: Maria Del Carmen Carlisle Age: 68 yrs Sex: Female : 1950 Arrival Date: 12/26/2018 Time: 14:23 Bed 11 Private MD: Rebel Shoemaker Diagnosis: Contusion of lower back and pelvis;Contusion of left knee;Contusion of right knee;Nondisplaced unspecified fracture of right lesser toe(s) Presentation: 12/26 14:33 Presenting complaint: Right foot and bilateral knee pain after fall from chair when hb trying to catch toddler in highchair. Care prior to arrival: None. Mechanism of Injury: Fall out of chair. Trauma event details: Injury occurred in the [facility], Injury occurred: at home. Injury occurred: December 26, 2018. 14:33 Acuity: MAYRA 4 hb 14:33 Method Of Arrival: Wheelchair hb 17:41 Transition of care: patient was not received from another setting of care. Onset of aj1 symptoms was December 26, 2018. Risk Assessment: Do you want to hurt yourself or someone else? Patient reports no desire to harm self or others. Initial Sepsis Screen: Does the patient meet any 2 criteria? No. Patient's initial sepsis screen is negative. Does the patient have a suspected source of infection? No. Patient's initial sepsis screen is negative. Trauma Activation: Not Applicable Physician: ED Physician; Name: ; Notified At: ; Arrived At: Physician: General Surgeon; Name: ; Notified At: ; Arrived At: Physician: Radiology; Name: ; Notified At: ; Arrived At: Physician: Respiratory; Name: ; Notified At: ; Arrived At: Physician: Lab; Name: ; Notified At: ; Arrived At: Historical: - Allergies: 14:37 Codeine (Vomiting); hb - Home Meds: 14:37 Allopurinol Oral [Active]; Chemotherapy [Active]; levothyroxine oral [Active]; hb gabapentin Oral [Active]; Metformin Oral [Active]; - PMHx: 14:37 brain aneurysm; colon cancer; Hypothyroidism; ovarian CA; Back pain; hb - PSHx: 14:37 ovaries; Knee surgery; fallopian tubes; brain; Hysterectomy; hb - Immunization history:: Adult Immunizations up to date. - Social history:: Smoking status: Patient/guardian denies using tobacco. - Ebola Screening: : No symptoms or risks identified at this time. Screenin:27 Abuse screen: Denies threats or abuse. Denies injuries from another. Nutritional aj1 screening: No deficits noted. Tuberculosis screening: No symptoms or risk factors identified. 17:41 Fall Risk Fall in past 12 months (25 points). Total Epperson Fall Scale indicates Low Risk aj1 Score (25-44 pts). Assessment: 15:30 General: Appears in no apparent distress. uncomfortable, Behavior is calm, cooperative, aj1 appropriate for age. Pain: Complains of pain in right foot, right knee and left knee. Neuro: Level of Consciousness is awake, alert, obeys commands, Oriented to person, place, time, situation. Cardiovascular: Patient's skin is warm and dry. Respiratory: Airway is patent Respiratory effort is even, unlabored, Respiratory pattern is regular, symmetrical. GI: No signs and/or symptoms were reported involving the gastrointestinal system. : No signs and/or symptoms were reported regarding the genitourinary system. EENT: No signs and/or symptoms were reported regarding the EENT system. Derm: Skin is pink, warm \T\ dry. normal. Musculoskeletal: Range of motion: limited in left knee, right knee and right ankle. 16:27 Reassessment: Patient appears in no apparent distress at this time. No changes from aj1 previously documented assessment. Patient and/or family updated on plan of care and expected duration. Pain level reassessed. Patient is alert, oriented x 3, equal unlabored respirations, skin warm/dry/pink. 17:40 Reassessment: Patient appears in no apparent distress at this time. No changes from aj1 previously documented assessment. Patient and/or family updated on plan of care and expected duration. Pain level reassessed. Patient is alert, oriented x 3, equal unlabored respirations, skin warm/dry/pink. Vital Signs: 14:35 BP 118 / 56; Pulse 71; Resp 16; Temp 98.2; Pulse Ox 100% on R/A; Weight 105.23 kg; hb Height 5 ft. 3 in. (160.02 cm); Pain 5/10; 14:35 Body Mass Index 41.10 (105.23 kg, 160.02 cm) hb ED Course: 14:23 Patient arrived in ED. mr 14:24 Rebel Shoemaker DO is Private Physician. mr 14:35 Triage completed. hb 14:35 Arm band placed on left wrist. hb 15:26 Luan Capellan NP is PHCP. pm1 15:26 Carlos Perdomo MD is Attending Physician. pm1 15:31 Kika Albert, RN is Primary Nurse. aj1 16:27 Patient has correct armband on for positive identification. aj1 16:27 No provider procedures requiring assistance completed. aj1 16:28 Sacrum And Coccyx XRAY In Process Unspecified. EDMS 16:28 Knee Right 3 View XRAY In Process Unspecified. EDMS 16:28 Knee Left 3 View XRAY In Process Unspecified. EDMS 16:28 Foot Right 3 View XRAY In Process Unspecified. EDMS 17:40 Patient did not have IV access during this emergency room visit. Anil tape right fifth aj1 toe Ortho shoe applied to right foot. Administered Medications: No medications were administered Outcome: 17:19 Discharge ordered by MD. pm1 17:41 Discharged to home via wheelchair. aj1 17:41 Condition: good 17:41 Discharge instructions given to patient, Instructed on discharge instructions, follow up and referral plans. Demonstrated understanding of instructions, follow-up care. 17:42 Patient left the ED. aj1 Signatures: Dispatcher [employer] EDKika Henderson, RN RN aj1 Monie Lainez mr Luan Capellan NP BUHR MILL OPERATOR pm1 Colleen Moore RN RN hb
[2018-12-26 18:42] VITALS: BP 118/56; TEMP 98.2; O2SAT 100
== END 2018-12-26 17:42 | disposition home or self-care (01) ==
LOC: ER 14:20
DX: S92.504A Nondisplaced unspecified fracture of right lesser toe(s), initial encounter for closed fracture (principal); S80.02XA Contusion of left knee, initial encounter; S80.01XA Contusion of right knee, initial encounter; S30.0XXA Contusion of lower back and pelvis, initial encounter; W17.89XA Other fall from one level to another, initial encounter; Y93.89 Activity, other specified; Y92.9 Unspecified place or not applicable; E03.9 Hypothyroidism, unspecified; C18.9 Malignant neoplasm of colon, unspecified; Z88.6 Allergy status to analgesic agent
CPT/HCPCS: 72220; 99283

== ENCOUNTER 2019-05-03 16:43 | Emergency (ER) | payer OTHER ==
--- OUTSIDE RECORDS SUMMARY | 2019-05-03 16:45 | XMS REPORT ---
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
--- OUTSIDE RECORDS SUMMARY | 2019-05-03 16:45 | XMS REPORT ---
:1950 Author Organization [employer] Care Team Providers Name Role Phone Rocky Shoemakerh Provider Role Unavailable Allergies, Adverse Reactions, Alerts Substance Reaction Event Type N.K.D.A. 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 Assessment Venous insufficiency I87.2 Active Problem CKD (chronic kidney disease) stage N18.3 Active 3, GFR 30-59 ml/min Assessment Anemia, macrocytic D53.9 Active Assessment Malignant neoplasm of right ovary C56.1 Active Problem Thrombocytopenia D69.6 Active Problem Malignant neoplasm of left ovary C56.2 Active Problem Gout, unspecified cause, M10.9 Active unspecified chronicity, unspecified site Problem Mixed hyperlipidemia E78.2 Active Problem Malignant neoplasm of right ovary C56.1 Active Assessment HTN (hypertension), benign I10 Active Assessment CKD (chronic kidney disease) stage N18.3 Active 3, GFR 30-59 ml/min Assessment Rheumatoid arthritis involving M06.9 Active multiple sites, unspecified rheumatoid factor presence Assessment Mixed hyperlipidemia E78.2 Active Assessment Controlled type 2 diabetes E11.9 Active mellitus without complication, without long-term current use of insulin Assessment Elevated alkaline phosphatase R74.8 Active level Assessment 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, unspecified laterality Assessment Hypothyroidism, unspecified type E03.9 Active Problem HTN (hypertension), benign I10 Active Assessment Malignant neoplasm of left ovary C56.2 Active Assessment 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 Problem Venous insufficiency I87.2 Active Medications Medication Code Code Instructions Start End Status Dosage System Date Date Ferrous Sulfate [facility] 74908-80490 325 MG Orally Active as directed Aspirin 81 ND 03506337577 81 MG Orally Active 1 tablet Once a day Minocycline-Acne ND 0 Active not defined Care Products Zejula [facility] 20062611010 100 MG Orally Active 3 capsules Once a day Spironolactone [facility] 50795080030 25 MG Orally Active 1 tablet with Once a day food Vitamin D [facility] 82435914615 1000 UNIT Active 1 capsule (Cholecalciferol) Orally Once a day [place] 3 [facility] 93641338308 1000 MG Orally Active 1 capsule Once a day Furosemide [facility] 56523448987 40 MG Orally Active 1 tablet Once a day Pravastatin [facility] 44770885025 80 MG Orally Active 1 tablet Sodium Once a day Metformin HCl [facility] 34725881039 500 MG Orally Active 1 tablet with BID a meal Allopurinol [facility] 20106515047 300 MG Orally Active as directed Baclofen [facility] 95255117617 10 MG Orally Active 1 tablet with Three times a food or milk day Duloxetine HCl [facility] 35535669948 30 MG Orally Active 1 capsule Once a day Folic Acid [facility] 40211672660 1 MG Orally Active 1 tablet Once a day Avastin [facility] 78990056120 100 MG/4ML Active as directed Intravenous Gabapentin [facility] 59795015341 300 MG Orally Active 1 capsule Once a day before bedtime Levothyroxine [facility] 20763393182 100 MCG Orally Active 1 tablet on Sodium Once a day an empty stomach in the morning Metronidazole [facility] 13600132692 0.75 % Active 1 application Externally to affected Twice a day area Magnesium [facility] 35847538363 500 MG Orally Active 1 tablet with Once a day a meal Pravastatin [facility] 33545497523 80 MG Orally Active 1 tablet Sodium Once a day Results No Known Results Summary Purpose [employer] Submission
--- OUTSIDE RECORDS SUMMARY | 2019-05-03 16:45 | XMS REPORT ---
[...] multiple sites, unspecified rheumatoid factor presence Assessment Umbilical hernia without obstruction K42.9 Active and without gangrene Problem HTN (hypertension), benign I10 Active Problem [...] Medications Results No Known Results Summary Purpose [employer] Submission
[2019-05-03 17:32] LABS: Absolute Lymphocytes (CBC) 1.5 K/uL (0.7-4.9); Basophils % 0.8 % (0-1.3); Hematocrit 33.8 % (36.0-45.0); Lymphocytes % 22.6 % (15.3-44.8); MPV 9.3 fL (7.6-11.3); RBC Red Blood Cell Count 3.09 M/uL (3.86-4.86)
[2019-05-03 17:53] LABS: ALT/SGPT 33 U/L (12-78); AST/SGOT 28 U/L (15-37); Albumin 3.6 g/dL (3.4-5.0); Alkaline Phosphatase 133 U/L (45-117); BUN Blood Urea Nitrogen 19 mg/dL (7-18); Bicarbonate 29 mmol/L (21-32); Bilirubin Direct < 0.1 mg/dL (0-0.2); Bilirubin Total 0.3 mg/dL (0.2-1.0); Glucose Level 106 mg/dL (74-106); Lipase 136 U/L (73-393); Potassium 3.7 mmol/L (3.5-5.1); Protein, Total 7.9 g/dL (6.4-8.2); Sodium Level 140 mmol/L (136-145)
--- NOTE | 2019-05-03 18:34 | RAD REPORT ---
EXAM DESCRIPTION: CT - Chest For Pe Angio - 05/03/2019 6:22 pm CLINICAL HISTORY: Chest pain. shortness of breath COMPARISON: Chest Abd Pelvis Wo Con dated 07/17/2018Chest Abd Pelvis Wo Con dated 07/17/2018 TECHNIQUE: CT angiogram of the pulmonary arteries was performed with MIP. All CT scans are performed using dose optimization technique as appropriate and may include automated exposure control or mA/KV adjustment according to patient size. FINDINGS: No evidence of pulmonary thromboembolism. No acute aortic finding demonstrated. Large right pleural effusion is seen with significant right lung atelectasis. Mild pulmonary edema steel spected in the left lung. No left-sided effusion. Mildly enlarged right axillary lymph node measuring 16 mm in short axis. Port catheter is noted. No concerning bony finding. IMPRESSION: No evidence of pulmonary thromboembolism. Large right pleural effusion.
[2019-05-03 18:37] LABS: Blood Morphology Comment NOTED (NOT SEEN); Macrocytosis 1+; Platelet Estimate ADEQ; Urine White Blood Cell Casts OK
--- NOTE | 2019-05-03 18:44 | RAD REPORT ---
EXAM DESCRIPTION: CTAbdomen Pelvis W Contrast - 05/03/2019 6:22 pm CLINICAL HISTORY: Abdominal pain. constipation, abdominal pain COMPARISON: No comparisons TECHNIQUE: Biphasic CT imaging of the abdomen and pelvis was performed with 100 ml non-ionic IV cont rast. All CT scans are performed using dose optimization technique as appropriate and may include automated exposure control or mA/KV adjustment according to patient size. FINDINGS: Right pleural effusion is present. The liver demonstrates no focal mass or biliary dilatation. Cholecystectomy clips are seen. The splee n, adrenal glands, pancreas and kidneys are within normal limits. No bowel obstruction, free air, free fluid or abscess. Moderate stool is present throughout the colon . The appendix is normal. Enlarged left para-aortic lymph node measuring 15 mm (image 31/83) is note d. Small enlarged lymph node is present along the root of the mesentery as well largest measuring 13 mm. Upper limit of normal pelvic sidewall lymph node is present on the left measuring 10 mm. Small ve ntral hernia is present containing small intestine. Moderate lumbosacral degenerative changes. IMPRESSION: No acute intra-abdominal or pelvic finding seen. Mild adenopathy is seen in the retroper itoneum and root of the small bowel mesenteric. Moderate retained stool in the colon compatible with constipation. Large right pleural effusion.
[2019-05-03] MEDS ORDERED: FLEET ENEMA ADULT PR ONE (19:08)
--- NOTE | 2019-05-03 20:23 | ER ---
Nurse's Notes [facility] Name: Maria Del Carmen Carlisle Age: 68 yrs Sex: Female : 1950 Arrival Date: 05/03/2019 Time: 16:45 Bed 5 Private MD: Rebel Shoemaker Diagnosis: Constipation, unspecified;Chronic pulmonary edema Presentation: 05/03 16:49 Presenting complaint: Patient states: Has had constipation for one to two days, sg currently having treatment for Ovarian Cancer with Mets to the lungs, reports having several thoracentisis with the most recent having Cancer cells in the fluid. Transition of care: patient was not received from another setting of care. Onset of symptoms was May 03, 2019. Risk Assessment: Do you want to hurt yourself or someone else? Patient reports no desire to harm self or others. Initial Sepsis Screen: Does the patient meet any 2 criteria? No. Patient's initial sepsis screen is negative. Does the patient have a suspected source of infection? No. Patient's initial sepsis screen is negative. Care prior to arrival: None. 16:49 Method Of Arrival: Wheelchair 16:49 Acuity: MAYRA 3 sg Triage Assessment: 16:50 General: Appears in no apparent distress. comfortable, obese, Behavior is cooperative, bp appropriate for age, anxious. Pain: Denies pain. EENT: No deficits noted. Neuro: No deficits noted. Cardiovascular: No deficits noted. Respiratory: No deficits noted. GI: Reports constipation. : No signs and/or symptoms were reported regarding the genitourinary system. Derm: No deficits noted. Musculoskeletal: No deficits noted. Historical: - Allergies: 16:52 Codeine (Vomiting); sg - PMHx: 16:52 Back pain; brain aneurysm; colon cancer; Hypothyroidism; ovarian CA; sg - PSHx: 16:52 ovaries; Knee surgery; fallopian tubes; brain; Hysterectomy; sg - Immunization history:: Adult Immunizations up to date. - Social history:: Smoking status: Patient/guardian denies using tobacco. - Ebola Screening: : Patient negative for fever greater than or equal to 101.5 degrees Fahrenheit, and additional compatible Ebola Virus Disease symptoms Patient denies exposure to infectious person Patient denies travel to an Ebola-affected area in the 21 days before illness onset No symptoms or risks identified at this time. Screenin:06 Abuse screen: Denies threats or abuse. Denies injuries from another. Nutritional bp screening: No deficits noted. Tuberculosis screening: No symptoms or risk factors identified. Fall Risk None identified. Assessment: 16:55 General: SEE TRIAGE NOTE. bp 18:10 Reassessment: PT TO CT. bp 19:15 General: Appears in no apparent distress. uncomfortable, Behavior is calm, cooperative, jd3 appropriate for age. Pain: Complains of pain in abdomen Quality of pain is described as aching. Neuro: Level of Consciousness is awake, alert, obeys commands, Oriented to person, place, time, situation. Cardiovascular: Denies chest pain, Capillary refill < 3 seconds Patient's skin is warm and dry. Respiratory: Airway is patent Respiratory effort is even, unlabored, Respiratory pattern is regular, symmetrical, Denies cough, shortness of breath. GI: Abdomen is round non-distended, Reports constipation, cramping, Patient currently denies nausea. : No signs and/or symptoms were reported regarding the genitourinary system. EENT: No signs and/or symptoms were reported regarding the EENT system. Derm: Skin is intact, Skin is dry, Skin is normal, Skin temperature is warm. Musculoskeletal: Circulation, motion, and sensation intact. Range of motion: intact in all extremities. 20:03 Reassessment: Patient appears in no apparent distress at this time. Patient and/or jd3 family updated on plan of care and expected duration. Pain level reassessed. Patient is alert, oriented x 3, equal unlabored respirations, skin warm/dry/pink. pt used enema. pt reporting having a bowel movement. reports feeling better. Patient states feeling better. 20:46 Reassessment: Patient appears in no apparent distress at this time. Patient and/or jd3 family updated on plan of care and expected duration. Pain level reassessed. Patient is alert, oriented x 3, equal unlabored respirations, skin warm/dry/pink. Patient states feeling better. Vital Signs: 16:50 BP 134 / 66; Pulse 72; Resp 20; Temp 98.4; Pulse Ox 94% on R/A; Pain 3/10; sg 18:00 BP 122 / 65; Pulse 82; Resp 16; Pulse Ox 95% ; bp 20:05 BP 144 / 75; Pulse 81; Resp 17 S; Pulse Ox 95% on R/A; jd3 20:17 Pulse 102; Pulse Ox 86% on R/A; jd3 20:18 Pulse 80; Pulse Ox 95% on R/A; jd3 20:17 while walking jd3 20:18 sitting back in bed jd3 ED Course: 16:45 Patient arrived in ED. am2 16:45 Reble Shoemaker DO is Private Physician. am2 16:46 Da Montez PA is PHCP. [facility] 16:46 Darren Stafford MD is Attending Physician. [facility] 16:50 Korey Mcgrath, RN is Primary Nurse. bp 16:50 Triage completed. sg 16:50 Arm band placed on. sg 17:06 Patient has correct armband on for positive identification. Bed in low position. Call bp light in reach. Side rails up X2. Adult w/ patient. 17:25 Inserted saline lock: 22 gauge in right antecubital area, using aseptic technique. bp Blood collected. 18:22 CT Chest For PE Angio In Process Unspecified. EDMS 18:22 Abdomen In Process Unspecified. EDMS 20:22 Hammad Jackson MD is Referral Physician. [facility] 20:46 No provider procedures requiring assistance completed. IV discontinued, intact, jd3 bleeding controlled, No redness/swelling at site. Pressure dressing applied. Administered Medications: 19:50 Drug: Fleet Enema 133 ml Route: MI; jd3 20:18 Follow up: Response: No adverse reaction; Marked relief of symptoms jd3 Outcome: 20:22 Discharge ordered by MD. [facility] 20:46 Discharged to home via wheelchair, with family. jd3 20:46 Condition: stable 20:46 Discharge instructions given to patient, family, Instructed on discharge instructions, follow up and referral plans. Demonstrated understanding of instructions, follow-up care. 20:47 Patient left the ED. jd3 Signatures: Dispatcher [employer] EDMS Herb Singleton RN RN Da Montez PA PA jmm Moreno, Amanda am2 Marco Ulrich RN RN jd3 Peltier, Brian, RN RN bp Corrections: (The following items were deleted from the chart) 20:06 20:03 Reassessment: pt used enema. pt reporting having a bowel movement. reports jd3 feeling better. jd3 20:18 20:17 Pulse 80bpm; Pulse Ox 95% RA; sitting back in bed; jd3 jd3
--- NOTE | 2019-05-03 20:23 | EDPHYS ---
Physician Documentation [facility] Name: Maria Del Carmen Carlisle Age: 68 yrs Sex: Female : 1950 Arrival Date: 05/03/2019 Time: 16:45 Bed 5 Private MD: Rebel Shoemaker ED Physician Darren Stafford HPI: 05/03 17:15 This 68 yrs old Female presents to ER via Wheelchair with complaints of jmm Constipation. 17:15 The patient presents with constipation, abdominal fullness. Onset: The symptoms/episode jmm began/occurred gradually. The symptoms do not radiate. Associated signs and symptoms: Pertinent positives: shortness of breath, Pertinent negatives: nausea and vomiting, chest pain. The symptoms are described as achy. This is a 68 year old female with a history of metatasized ovarian cancer presents to the ED with complaiints of abdominal swelling, constipation and shortness of breath. Patient states she has not had a bowel movement in 1 week. Denies vomiting. Denies fever. . Historical: - Allergies: 16:52 Codeine (Vomiting); sg - PMHx: 16:52 Back pain; brain aneurysm; colon cancer; Hypothyroidism; ovarian CA; sg - PSHx: 16:52 ovaries; Knee surgery; fallopian tubes; brain; Hysterectomy; sg - Immunization history:: Adult Immunizations up to date. - Social history:: Smoking status: Patient/guardian denies using tobacco. - Ebola Screening: : Patient negative for fever greater than or equal to 101.5 degrees Fahrenheit, and additional compatible Ebola Virus Disease symptoms Patient denies exposure to infectious person Patient denies travel to an Ebola-affected area in the 21 days before illness onset No symptoms or risks identified at this time. ROS: 17:15 Constitutional: Negative for fever, chills, and weight loss, Cardiovascular: Negative jmm for chest pain, palpitations, and edema, Respiratory: Negative for shortness of breath, cough, wheezing, and pleuritic chest pain. Exam: 17:20 Constitutional: This is a well developed, well nourished patient who is awake, alert, jmm and in no acute distress. Head/Face: atraumatic. Eyes: EOMI, no conjunctival erythema appreciated ENT: Moist Mucus Membranes Neck: Trachea midline, Supple Chest/axilla: Normal chest wall appearance and motion. Cardiovascular: Regular rate and rhythm. No edema appreciated Respiratory: Normal respirations, no respiratory distress appreciated 17:20 Back: Normal ROM Skin: General appearance color normal MS/ Extremity: Moves all extremities, no obvious deformities appreciated, no edema noted to the lower extremities Neuro: Awake and alert, normal gait Psych: Behavior is normal, Mood is normal, Patient is cooperative and pleasant 17:20 Abdomen/GI: Inspection: distension, obese Bowel sounds: normal, Palpation: abdomen is soft and non-tender, in all quadrants. Vital Signs: 16:50 BP 134 / 66; Pulse 72; Resp 20; Temp 98.4; Pulse Ox 94% on R/A; Pain 3/10; sg 18:00 BP 122 / 65; Pulse 82; Resp 16; Pulse Ox 95% ; bp 20:05 BP 144 / 75; Pulse 81; Resp 17 S; Pulse Ox 95% on R/A; jd3 20:17 Pulse 102; Pulse Ox 86% on R/A; jd3 20:18 Pulse 80; Pulse Ox 95% on R/A; jd3 20:17 while walking jd3 20:18 sitting back in bed jd3 MDM: 16:51 Patient medically screened. kim 20:20 Data reviewed: vital signs, nurses notes. Counseling: I had a detailed discussion with alexei the patient and/or guardian regarding: the historical points, exam findings, and any diagnostic results supporting the discharge/admit diagnosis, lab results, radiology results, the need for outpatient follow up, to return to the emergency department if symptoms worsen or persist or if there are any questions or concerns that arise at home. ED course: Patient is alert and non toxic in appearance. No resp distress appreciated. I discussed the patient with Dr. Jackson whom will follow up with patient. Family given strict return precautions. Patient and family understood and agrees with the plan of care. . 05/03 17:06 Order name: Basic Metabolic Panel; Complete Time: 17:54 [facility] 05/03 17:06 Order name: CBC with Diff; Complete Time: 18:41 [facility] 05/03 17:06 Order name: Creatinine for Radiology; Complete Time: 17:53 [facility] 05/03 17:06 Order name: Hepatic Function; Complete Time: 17:54 [facility] 05/03 17:06 Order name: Lipase; Complete Time: 17:54 [facility] 05/03 17:18 Order name: Troponin (emerg Dept Use Only); Complete Time: 18:01 [facility] 05/03 17:06 Order name: IV Saline Lock; Complete Time: 17:26 [facility] 05/03 17:06 Order name: Labs collected and sent; Complete Time: 17:26 [facility] 05/03 17:17 Order name: CT Chest For PE Angio; Complete Time: 18:35 [facility] 05/03 17:56 Order name: Abdomen ; Complete Time: 18:47 [facility] 05/03 18:37 Order name: CBC Smear Scan; Complete Time: 18:41 [facility] 05/03 18:49 Order name: Misc. Order: Half apple, half prune juice, 1 pad of butter PO; Complete [facility] Time: 19:58 05/03 19:07 Order name: Misc. Order: 02 with ambulation; Complete Time: 20:18 [facility] Administered Medications: 19:50 Drug: Fleet Enema 133 ml Route: MT; jd3 20:18 Follow up: Response: No adverse reaction; Marked relief of symptoms jd3 Disposition: 05/04 08:31 Co-signature as Attending Physician, Darren Stafford MD I agree with the assessment and kim plan of care. Disposition: 05/03/19 20:22 Discharged to Home. Impression: Constipation, unspecified, Chronic pulmonary edema. - Condition is Stable. - Discharge Instructions: Constipation, Adult, Pulmonary Edema. - Medication Reconciliation Form, Thank You Letter, Antibiotic Education, Prescription Opioid Use form. - Follow up: Hammad Jackson MD; When: 2 - 3 days; Reason: Recheck today's complaints, Continuance of care, Re-evaluation by your physician. Signatures: Dispatcher [employer] [facility] Herb Singleton, Darren Amaro RN, MD MD cha Mickail, Joel, PA PA [facility] Marco Ulrich RN RN jd3 Corrections: (The following items were deleted from the chart) 05/03 17:56 17:06 Abdomen Pelvis Wo Con+CT.RAD.BRZ [facility]. [facility] 20[facility]47 20:22 05/03/2019 20:22 Discharged to Home. Impression: Constipation, unspecified; jd3 Chronic pulmonary edema. Condition is Stable. Forms are Medication Reconciliation Form, Thank You Letter, Antibiotic Education, Prescription Opioid Use. Follow up: Hammad Jackson; When: 2 - 3 days; Reason: Recheck today's complaints, Continuance of care, Re-evaluation by your physician. alexei
[2019-05-03 20:55] VITALS: TEMP 98.4
[2019-05-03 20:57] VITALS: BP 144/75
[2019-05-03 21:00] VITALS: O2SAT 95
== END 2019-05-03 20:47 | disposition home or self-care (01) ==
LOC: ER 16:43
DX: K59.00 Constipation, unspecified (principal); J81.1 Chronic pulmonary edema; Z85.038 Personal history of other malignant neoplasm of large intestine; Z85.43 Personal history of malignant neoplasm of ovary; Z88.5 Allergy status to narcotic agent
CPT/HCPCS: 85025; 80048; 36415; 80076; 84484; 83690; 71275; 74177; 99284; Q9967

== ENCOUNTER 2020-01-15 08:42 | Day surgery (SDC) | payer OTHER ==
--- OUTSIDE RECORDS SUMMARY | 2020-01-15 08:56 | XMS REPORT ---
:1950 Author Organization [employer] Care Team Providers Name Role Phone Rebel Shoemaker Provider Role Unavailable Allergies No Known Allergies Problems Problem Type Condition Code Onset Dates Condition Statu s Problem Malignant neoplasm of right ovary C56.1 Active Problem Controlled type 2 diabetes mellitus E11.9 Active without complication, without long-term current use of insulin Problem Mixed hyperlipidemia E78.2 Active Problem Hypothyroidism, unspecified type E03.9 Active Problem Gout, unspecified cause, unspecified M10.9 Active chronicity, unspecified site Problem HTN (hypertension), benign I10 A ctive Problem Malignant neoplasm of left ovary C56.2 Active Problem Type 2 diabetes mellitus with E11.65 Active hyperglycemia, without long-term current use of insulin Problem Thrombocytopenia D69.6 Active Problem GERD without esophagitis K21.9 Act adrianne Problem Venous insufficiency I87.2 Active Problem Rheumatoid arthritis involving M06.9 Active multiple sites, unspecified rheumatoid factor presence Problem CKD (chronic kidney disease) stage N18.3 Active 3, GFR 30-59 ml/min Problem 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
--- OUTSIDE RECORDS SUMMARY | 2020-01-15 08:56 | XMS REPORT | Continuity of Care Document ---
:1950 Author Organization [facility] t Address [address] [place] [address] [address]. [address] [place] [address] Care Team Providers Name Role Phone SHRUTHI Primary Care Physician Unavailable SHRUTHI Attending Clinician Unavailable SYSTEM, NOT IN Attending Clinician Unavailable Mackenzie SHOEMAKER Attending Clinician Unavailable CARLOS Attending Clinician Unavailable Shruthi CESPEDES Attending Clinician Matthew HENDRICKS Attending Clinician Katy ALVAP Attending Clinician MONIE SCHMID Attending Clinician Unavailable Monie íDaz Attending Clinician Wyatt CARDENAS Attending Clinician Mackenzie Shoemaker Attending Clinician Unavailable Matthew HEARD Attending Clinician Unavailable Fabien HEARD, G Attending Clinician Unavailable Naheed HEARD, A Attending Clinician Unavailable Carlos HENDRICKS Attending Clinician MATTHEW Attending Clinician Unavailable Marika HEARD Attending Clinician Unavailable Phi Attending Clinician Cleveland RN, O Attending Clinician Unavailable Candice RPHardy, H Attending Clinician Christina [employer], N Attending Clinician Socorro HENDRICKS, B. Attending Clinician Yann [employer] Attending Clinician Sulma HENDRICKS Attending Clinician Eduardo HEARD, Y Attending Clinician Unavailable Raf Huizar APN Attending Clinician Dom HEARD Attending Clinician Unavailable Ronald HEARD Attending Clinician Unavailable Ricky OT, E. Attending Clinician Karen HEARD, G Attending Clinician Unavailable Boris DDS Attending Clinician Guilherme DDS, Bruce Attending Clinician Melina HEARD, S Attending Clinician Unavailable Deny CESPEDES Attending Clinician Juno HEARD, C Attending Clinician Unavailable Nelson Hicks MD, T Attending Clinician Raf Montes De Oca MD. Attending Clinician Liyah Glasgow MD Attending Clinician Barnett NP, C Attending Clinician Jim CESPEDES Attending Clinician Fredrick HEARD, A Attending Clinician Unavailable Shane HEARD Attending Clinician Unavailable [facility]id [facility]ending [facility]ician Payers Payer Name Policy Type Policy Number Effective Date Expiration Date S merlin MEDICARE PART A [id number] 2006 AND B 00:00:00 IRWIN JIM PATEL [id number] 2014 00:00:00 Problems Condition Condition Condition Status Onset Resolution Last Treating Co mments Source Name Details Category Date Date Treatment Clinician Date Secondary Secondary Disease Active and and 11-26 Anderso unspecifie unspecifie 00:00: n d d 00 malignant malignant neoplasm neoplasm of lymph of lymph nodes of nodes of multiple multiple regions regions Obstructiv Obstructiv Disease Active Last M D e sleep e sleep 3-17 Assessmen Eduardo so apnea apnea 00:00: t & Plan: n 00 Continue to use BiPAP more than 70% of the time, more than 4 hours at a time, for cardiovas cular and neurocogn itive protectio n. Based on 3 day report she is using 6.1hrs. There is no complianc e report, [employer] the rep said she will have to call the patient. There is no activity on her machine in the last 90 days. The patient and her daughter report using the machine every night with the exception of 3 nights mentioned above. We will see the patient for sleep follow up and evaluatio n of pleural effusion in 3 months Fatigue Fatigue Disease Active Last 8-27 Assessmen Anderso 00:00: t & Plan: n 00 Recommend she undergo retesting with baseline polysomno graphy. Headache Headache Disease Active 8-22 Anderso 00:00: n 00 Serum Serum Disease Active creatinine creatinine 4-04 An derso raised raised 00:00: n 00 Dyspnea Dyspnea Disease Active Last 4-01 Assessmen Anderso 00:00: t & Plan: n 00 Dyspnea is multifact orial and could be due to deconditi oning or pleural effusion. Will have her get baseline pulmonary function testing when she returns.R ecommende d deep breathing exercises , increase of physical activity and considera tion on pulmonary rehabilit ation. Malignant Malignant Disease Active Last pleural pleural 4- Assessmen Eduardo so effusion effusion 00:00: t & Plan: n 00 IPC removed 06/2019.C T scan with There is moderate to severe right pleural effusion with diffuse pleural thickenin g compatibl e with pleural metastase s. The effusion has increased . At time of catheter removal patient was noted to have trapped lung with small hydropneu mothorax. Her SOB is stable we will continue to monitor and consider thoracent esis vs IPC as needed. Superficia Superficia Disease Active M D l venous l venous 07-21 Weston o thrombosis thrombosis 00:00: n of upper of upper 00 extremity extremity Hypothyroi Hypothyroi Disease Active M D dism dism 3 Anderso 00:00: n 00 Rheumatoid Rheumatoid Disease Active M D arthritis arthritis 3-28 Denilson rso 00:00: n 00 Chronic Chronic Disease Active MD depression depression 3-28 An derso 00:00: n 00 Pleural Pleural Disease Active Overview: MD effusion effusion 3-28 Added Weston o 00:00: automatic n 00 ally from request for surgery [id number] Sensory Sensory Disease Active MD neuropathy neuropathy 6-26 An derso 00:00: n 00 Diabetes Diabetes Disease Active MD mellitus mellitus 4-18 Weston o type 2 type 2 00:00: n without without 00 retinopath retinopath y y Hypertensi Hypertensi Disease Active M D on on 07-28 Anderso 00:00: n 00 Hyperchole Hyperchole Disease Active M D sterolemia sterolemia 07-28 An derso 00:00: n 00 Malignant Malignant Disease Active Last neoplasm neoplasm 07-26 Assessmen And erso of left of left 00:00: t & Plan: n ovary ovary 00 Cleopatra Carlisle is a 69 y.o. 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 Her last dose was 9. Prior to that she completed 6 cycles of carboplat in/Doxil with a Avastin on cycles 4 and 5 on 12/14/18. Per review of records she is currently on oral cyclophos phamide and bevacizum ab.In October she was found to have progressi on of disease and started on taxotere and avastin. Morbid Morbid Disease Active Overview: (severe) (severe) 07-26 Added Weston o obesity obesity 00:00: automatic n due to due to 00 ally from excess excess request calories calories for surgery [id number] Secondary Secondary Disease Active Overview: malignant malignant 07-26 Added Denilson rso neoplasm neoplasm 00:00: automatic n of of 00 ally from peritoneum peritoneum request for surgery [id number] Controlled Controlled Problem Active [facility] type 2 type 2 [facility] - diabetes diabetes Memori a mellitus mellitus l without without Outpati complicati complicati en t on, on, Clinics without without long-term long-term current current use of use of insulin insulin Rheumatoid Rheumatoid Problem Active [facility] arthritis arthritis Luke [facility] - involving involving Elver renetta multiple multiple l sites, sites, Outpati unspecifie unspecifie en t d d Clinics rheumatoid rheumatoid factor factor presence presence HTN HTN Diagnosis Active [facility] (hypertens (hypertens [place] - ion), ion), [facility] benign benign l Outpati ent Clinics Mixed Mixed Diagnosis Active [facility] hyperlipid hyperlipid [place] [facility] emia emia [facility] l [facility] Clin[facility] Venous Venous Problem Active [facility] insufficie insufficie [place] - ncy ncy [facility] ent Clinics Gout, Gout, Problem Active [facility] unspecifie unspecifie [place] - d cause, d cause, Memori a unspecifie unspecifie l d d Outpati chronicity chronicity en t , , Clinics unspecifie unspecifie d site d site Hypothyroi Hypothyroi Problem Active [facility] dism, dism, [facility] - unspecifie unspecifie Me moria d type d type l Outpati ent Clinics Malignant Malignant Problem Active [facility] neoplasm neoplasm [facility] - of right of right Memori a ovary ovary l Outpati ent Clinics Malignant Malignant Problem Active [facility] neoplasm neoplasm [facility] of left of left Memoria ovary ovary l Outpati ent Clinics Thrombocyt Thrombocyt Problem Active [facility] openia openia [facility] 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[facility] of of [facility] - malignant malignant Elevr renetta 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 to vagina Outp ati ent Clinics CKD CKD Diagnosis Active [facility] (chronic (chronic [facility] - kidney kidney Memoria disease) disease) l stage 3, stage 3, Outpat i GFR 30-59 GFR 30-59 ent ml/min ml/min Clinics Type 2 Type [address] [facility] diabetes diabetes [facility] - mellitus mellitus Memori a with with l hyperglyce hyperglyce Ou tpati amna, amna, ent without without Clinics long-term long-term current current use of use of insulin insulin GERD GERD Problem Active [facility] without without [facility] - esophagiti esophagiti Me moria s s l Outpati ent Clinics Elevated Elevated Diagnosis Active [facility] alkaline alkaline [facility] - phosphatas phosphatas Me moria e level e level l Outpati ent Clinics Other Other Diagnosis Active [facility] secondary secondary Luke [facility] - chronic chronic Memoria gout of gout of l foot foot Outpati without without ent tophus, tophus, Clinics unspecifie unspecifie d d laterality laterality Anemia, Anemia, Diagnosis Active [facility] macrocytic macrocytic [place] [facility] ent Clinics Allergies, Adverse Reactions, Alerts Allergy Allergy Status Severity Reaction(s) Onset Inactive Treating Comm ents Source Name Type Date Date Clinician CODEINE DRUG Active Med Nausea 2018-0 MD INGREDI 07-26 Anderso 00:00: n 00 CODEINE DRUG Active Med Nausea 2018-0 MD INGREDI 07-26 Anderso 00:00: n 00 CODEINE DRUG Active Med Nausea 2018-0 MD INGREDI 07-26 Anderselvia 00:00: n 00 CODEINE DRUG Active Med Nausea MD BANEGAS 07-26 Anderselvia 00:00: n 00 Family History Family Member Diagnosis Comments Start Date Stop Date Source Natural father -Leukemia MD Uyen salcido Maternal aunt -Gynecology (Ovary, MD Stafford Endometrial, Cervix, Vagina) Natural mother -Breast cancer Natural mother -Thoracic or Lung MD Stafford Social History Social Habit Start Date Stop Date Quantity Comments Source Sex Assigned At MD Ontiveros on Exposure to Not sure MD Stafford SARS-CoV-2 (event) Cigarettes smoked 2020-01-06 2020-01-06 MD Denilson calderon current (pack per 00:00:00 00:00:00 day) - Reported Cigarette pack-years 2020-01-06 2020-01-06 MD Raf anand 00:00:00 00:00:00 Tobacco use and 2020-01-06 2020-01-06 Never used MD Ontiveros on exposure 00:00:00 00:00:00 Alcohol intake 2020-01-06 2020-01-06 Current MD Uyen salcido 00:00:00 00:00:00 non-drinker of alcohol (finding) History of tobacco 1967-04-25 1995-01-07 Current smoker MD Stafford use 00:00:00 00:00:00 Smoking Status Start Date Stop Date Source Former smoker 2020-01-06 00:00:00 2020-01-06 00:00:00 MD Clark son Medications Ordered Filled Start Stop Current Ordering Indication Dosage Frequency Signature Comments Components Source Medication Medication Date Date Medication? Clinician (SIG) Name Name methylPREDN Yes Malignant Take as ISolone 8 neoplasm of directed A nderso (Medrol, 00:00: left ovary (Direction n [place],) 4 mg 00 s on tablet blister pack) nystatin 2019-0 Yes Candidiasis Apply M D (MYCOSTATIN 825 of skin topically Anderso ) 100,000 00:00: to n units/g 00 affected cream area(s) twice daily. allopurinol 2019-0 Yes 300mg Take 300 M D (ZYLOPRIM) 8-24 mg by Anderso 300 mg 18:49: mouth n tablet 28 daily. aspirin 81 2020-0 Yes 81mg Take 81 mg M D mg EC 8-24 by mouth Anderso tablet 18:49: daily. n 28 omega-3 2020-0 Yes 1g Take 1 g MD acid ethyl 8-03 by mouth 3 And erso esters 15:46: (three) n (LOVAZA) 1 20 times a g capsule day. metFORMIN 2020-0 Yes 1000mg Take 1,000 MD (GLUCOPHAGE 8-03 mg by Anderso ) 500 mg 15:46: mouth n tablet 20 every evening. pravastatin 2020-0 Yes 80mg Take 80 mg MD (PRAVACHOL) 8-03 by mouth Denilson rso 80 mg 15:46: at n tablet 20 bedtime. folic acid 2020-0 Yes 1mg Take 1 mg MD (FOLVITE) 1 8-03 by mouth Denilson rso mg tablet 15:46: daily. n 20 cholecalcif 2020-0 Yes 2000U Take 2,000 MD pedro luis, 8-03 Units by Anderso vitamin D3, 15:46: mouth n (VITAMIN 20 twice D3) 2,000 daily. units tab tablet DULoxetine 2020-0 Yes 30mg Take 30 mg M D (CYMBALTA) 8-03 by mouth Eduardo so 30 mg 15:46: every n capsule 20 morning. magnesium 2020-0 Yes 500mg Take 500 MD oxide 500 8-03 mg by Anderso mg tablet 15:46: mouth n 20 daily. furosemide 2020-0 Yes 40mg Take 40 mg M D (LASIX) 40 8-03 by mouth Eduardo so mg tablet 15:46: as needed. n 20 minocycline 2020-0 Yes 1{tbl} Take 1 MD (DYNACIN) 8-03 tablet by Eduardo so 100 MG 15:46: mouth. n tablet 20 metroNIDAZO 2020-0 Yes 2 (two) MD LE 8-03 times a Anderso (METROCREAM 15:46: day n ) 0.75 % 20 cream pyridoxine, 2020-0 Yes Take by MD vitamin B6, 8-03 mouth. Weston o (vitamin 15:46: n B-6) 100 mg 20 tablet zinc oxide 2020-0 Yes Malignant Apply M D 20% 7-21 neoplasm of topically And erso ointment 00:00: left ovary to n 00 affected area(s) as needed for irritation . traMADol 2020-0 Yes Lower 50mg Take 1 MD (ULTRAM) 50 7-20 abdominal tablet (50 Anderso mg tablet 00:00: pain, mg) by n 00 unspecified mouth every 8 (eight) hours as needed for moderate pain. nystatin-zi 2020-0 2020- No Sore on Apply M D nc 11-11 09-15 skin topically Anderso oxide-lidoc 00:00: 00:00 to n rachel (NDX) 00 :00 affected cream area(s) 3 (AMB-CMPD) (three) times a day as needed for irritation . Triamcinolo Triamcinolo 2020-0 Yes Rebel [address] [facility] ne ne 7-17 [place] applicatio [facility] - Acetonide Acetonide 00:00: n to Mem oria 00 affected l area Outpati ent Clinics ondansetron 2019-0 Yes Malignant Take 1 tab MD (Zofran) 8 7-09 neoplasm of by mouth Anderso mg tablet 00:00: left ovary every 8 n 00 hrs on days 2, 3, and 4 following chemo, then take 1 tab by mouth every 8 hrs as needed for nausea. prochlorper 2020-0 Yes Malignant 10mg Take 1 MD azine 7-09 neoplasm of tablet (10 A nderso (Compazine) 00:00: left ovary mg) by n 10 mg 00 mouth tablet every 6 (six) hours as needed for nausea or vomiting. cyclophosph 2020-0 2020- No Malignant 50mg Take 1 MD amide 5-28 07-09 pleural capsule Anderso (CYTOXAN) 00:00: 00:00 effusion (50 mg) by n 50 mg 00 :00 mouth capsule daily for 21 doses. NYSTOP 2020-0 Yes Candidiasis APPLY MD 100,000 5-18 of skin TOPOCALLY Denilson rso unit/gram 00:00: TO AFECTED n powder 00 AREA(S) FOUR TIMES A DAY cyclophosph 2020-0 2020- No Malignant 50mg Take 1 MD amide 4-14 05-06 neoplasm of capsule And erso (CYTOXAN) 00:00: 04:59 left ovary (50 mg) by n 50 mg 00 :00 mouth capsule daily for 21 doses. cyclophosph 2020-0 2020- No Malignant 50mg Take 1 MD amide 3-26 05-28 neoplasm of capsule And erso (CYTOXAN) 00:00: 21:17 left ovary (50 mg) by n 50 mg 00 :36 mouth capsule daily for 21 doses. cyclophosph No Malignant 50mg Take 1 MD amide 3-03 03-25 neoplasm of capsule And erso (CYTOXAN) 00:00: 04:59 left ovary (50 mg) by n 50 mg 00 :00 mouth capsule daily for 21 doses. cyclophosph No Malignant 50mg Take 1 MD amide 2-11 03-25 neoplasm of capsule And erso (CYTOXAN) 00:00: 04:59 left ovary (50 mg) by n 50 mg 00 :00 mouth capsule daily for 21 doses. amoxicillin 2019- No 1{capsu Take 1 MD (AMOXIL) 124 03-28 le} capsule by Denilson good 500 mg 00:00: 00:00 mouth 3 n capsule 00 :00 (three) times a day. aspirin-meli 2019- No 1{tbl} Take 1 M D cium 1-16 -16 tablet by Sangeethaerselvia carbonate 20:03: 00:00 mouth. n 81 mg-300 21 :00 mg calcium(777 mg) tab cyclophosph Malignant 50mg Take 1 MD amide 1-16 02-07 neoplasm of capsule And erso (CYTOXAN) 00:00: 05:59 left ovary (50 mg) by n 50 mg 00 :00 mouth capsule daily for 21 doses. DULoxetine 2018-04 2019- No 1{capsu Take 1 M D (CYMBALTA) 2-17 12-17 le} capsule by An derso 30 mg 21:45: 00:00 mouth. n capsule 24 :00 levothyroxi 2018-04 2019- No 1{tbl} Take 1 M D ne 2-17 12-17 tablet by Anderso (SYNTHROID, 21:45: 00:00 mouth. n LEVOTHROID) 07 :00 112 mcg tablet levothyroxi 2018-04 Yes TAKE 1 MD ne 2-08 TABLET BY Anderso (SYNTHROID, 00:00: MOUTH ONCE n LEVOTHROID) 00 DAILY IN 100 mcg THE tablet MORNING ON AN EMPTY STOMACH FOR 90 DAYS gabapentin 2018-04 Yes Post-herpet 300mg Take 1 MD (NEURONTIN) 1-21 ic capsule Eduardo so 300 mg 00:00: polyneuropa (300 mg) n capsule 00 thy by mouth 3 (three) times a day. NYSTOP 2018-04 2020- No Candidiasis Apply 100,000 05-15 05-18 of skin topically And erso unit/gram 00:00: 00:00 to n powder 00 :00 affected area(s) 4 (four) times a day. niraparib 2019- No Malignant 200mg Take 2 (ZEJULA) 01-16-16 neoplasm of capsules Anderso 100 mg 00:00: 00:00 left ovary (200 mg) n capsule 00 :00 by mouth daily. ketoconazol Yes ADD 30GM MD colon (NIZORAL) 01-10 (1/2 TUBE) An derso 2% cream 00:00: TO SOAKING n 00 DEVICE, ALLOW WARM WATER TO AGITATE; SOAK AFFECTED AREA FOR 15-30 MIN 1-2 TIMES A DAY triamcinolo Yes APPLY 1-2 M D ne 9-18 GRAMS TO Anderso (KENALOG) 00:00: AFFECTED n 0.1% cream 00 AREA(S) UP TO 3-4 TIMES DAILY NEEDED, AVOID FACE. USE 2 WEEKS ON, 1 WEEK OFF LONG DIRECTED BY PHYSICIAN dm 2019- No Sore mouth 10mL Swish and mouthwash 01-0524 spit 10 mL And erso (sucralfate 00:00: 00:00 4 (four) n /maalox/dip 00 :00 times a henhydramin day. e) (AMB-CMPD) neomycin-ba Yes Localized Apply citracin-po 911 skin topically And erso lymyxin B 00:00: eruption to n (NEOSPORIN) 00 due to affected ointment drugs and area(s) medicaments twice taken daily. To internally feet Allopurinol Allopurinol Yes Rebel as [facility] 12-26 [place] directed [facility] - 00:00: [facility] 00 l Outpati ent Clinics NYSTOP 2019- No Candidiasis Apply MD 100,000 12-14 11-19 of skin topically And erso unit/gram 00:00: 00:00 to n powder 00 :00 affected area(s) 4 (four) times a day. ondansetron 2019- No Malignant Take 1 tab MD (ZOFRAN) 8 11-16 07-09 neoplasm of by mouth Anderso mg tablet 00:00: 00:00 left ovary every 8 n 00 :00 hrs on days 2, 3, and 4 following chemo, then take 1 tab by mouth every 8 hrs as needed for nausea. prochlorper 2019- No Malignant 10mg Take 1 MD azine 11-16 07-09 neoplasm of tablet (10 Anderso (COMPAZINE) 00:00: 00:00 left ovary mg) by n 10 mg 00 :00 mouth tablet every 6 (six) hours as needed for nausea or vomiting. albuterol Yes Shortness 1{vial} Take 1 MD (PROVENTIL, 08-15 of breath vial by Androxy CHAVEZ) 00:00: nebulizati n 2.5 mg/3 mL 00 on every 4 (0.083%) (four) nebulizer hours as solution needed for wheezing or shortness of breath. nebulizer Yes Shortness 1{each} 1 each by MD and 08-15 of breath miscellane Denilson rso compressor 00:00: ous route n simone 00 twice daily. nebulizer Yes Shortness 1{each} 1 each by MD accessories 08-15 of breath miscellane Anderso kit 00:00: ous route n 00 twice daily. gabapentin 2018- No Post-herpet 300mg Take 1 MD (NEURONTIN) 07-27 11-19 ic capsule Denilson rso 300 mg 00:00: 00:00 polyneuropa (300 mg) n capsule 00 :00 thy by mouth 3 (three) times a day. nitroglycer Yes .4mg Place 0.4 M D in 1-08 mg under Anderso (NITROSTAT) 00:00: the tongue n 0.4 mg SL 00 as needed tablet for chest pain. levothyroxi 2017-04 2019- No 100ug Take 100 MD ne 2-13 11-19 mcg by Anderso (SYNTHROID, 00:00: 00:00 mouth n LEVOTHROID) 00 :00 daily. 100 mcg tablet baclofen 2017-04 Yes 10mg Take 10 mg MD (LIORESAL) 0-13 by mouth Eduardo so 10 mg 00:00: every 8 n tablet 00 (eight) hours as needed for muscle spasms. senna-docus 2018-0 Yes Malignant 1{tbl} Take 1 MD ate 6-26 neoplasm of tablet by And erso (SENOKOT-S) 00:00: left ovary mouth n 8.6 mg-50 00 twice mg tablet daily. Duloxetine Duloxetine Yes Rebel [address] [facility] HCl HCl [facility]emaker [facility] Avastin Avastin Yes Rebel as [facility] Shoemaker directed [facility] Aspirin 81 Aspirin 81 Yes Rebel [address] [facility] Shoemaker [facility] Magnesium Magnesium Yes Rebel [address] [facility] Shoemaker with a [facility] - meal [facility] ent [facility]ics Glade 3 Glade 3 Yes Rebel [address] Shoemaker [facility]ics Minocycline Minocycline Yes Rebel not [facility] -Acne Care -Acne Care Shoemaker defined [facility] - Products Products [facility] Baclofen Baclofen Yes Rebel [address] Shoemaker with food [facility] - or milk [facility] Folic Acid Folic Acid Yes Rebel [address] [facility] Shoemaker [facility] Pravastatin Pravastatin Yes Rebel [address] [facility] Sodium Sodium Shoemaker [facility] Vitamin D Vitamin D Yes Rebel [address] [facility] (Cholecalci (Cholecalci Shoemaker [facility] - ferol) ferol) [facility] Outpati ent Clinics Gabapentin Gabapentin Yes Rebel [address] [facility] Shoemaker before [facility] - bedtime [facility] ent Clin[facility] Metronidazo Metronidazo Yes Rebel [address] [facility] [place]emaker applicatio [facility] - n to Memoria affected l area Outpati ent Clinics Zejula Zejula Yes Rebel [address] [facility] Shoemaker [facility] Ferrous Ferrous Yes Rebel as [facility] Sulfate Sulfate Shoemaker directed [facility] - [facility] Furosemide Furosemide Yes Rebel TAKE [address] [facility] Shoemaker TABLET BY [facility] - MOUTH ONCE Memoria DAILY l Outpati ent Clinics Levothyroxi Levothyroxi Yes Rebel TAKE [address] [facility] ne Sodium ne Sodium Shoemaker TABLET BY [facility] - MOUTH ONCE Memoria DAILY IN l THE Outpati MORNING ON ent AN EMPTY Clinics STOMACH FOR 90 DAYS Metformin Metformin Yes Rebel TAKE [address] HCl HCl [place]emaker TABLET BY [facility] - MOUTH Memoria TWICE l DAILY WITH Outpati MEALS ent Clinics Levothyroxi Levothyroxi Yes Rebel [address] [facility] ne Sodium ne Sodium Shoemaker on an Ishmael es - empty Memoria stomach in l the Outpati morning ent Clinics Furosemide Furosemide Yes Rebel [address] [facility] Famotidine Famotidine Yes Rebel [address] [facility] Shoemaker at bedtime [facility] - as needed [facility] l Outpati ent Clinics Pravastatin Pravastatin Yes Rebel [address] [facility] Sodium Sodium [facility]emaker [facility] Metformin Metformin Yes Rebel take [address] HCl HCl Shoemaker tablet by [facility] - mouth [facility]oria twice l daily with Outpati meals ent Clinics Immunizations Ordered Filled Immunization Date Status Comments Sour e Immunization Name Name FLUZONE HIGH DOSE FLUZONE HIGH DOSE 2018-12-[address] [facility] - OVER 65 OVER 65 00:00:00 [facility] Vital Signs Vital Name Observation Time Observation Value Comments Source WEIGHT 2020-01-14 11:28:00 95.7 kg WEIGHT 2020-01-14 11:28:00 95.7 kg WEIGHT 2019-12-24 10:54:00 96.6 kg WEIGHT 2019-12-24 10:54:00 96.6 kg WEIGHT 2019-11-28 09:37:57 100.2 kg WEIGHT 2019-11-28 09:37:57 100.2 kg HEIGHT 2019-11-05 09:18:00 154.5 cm WEIGHT 2019-11-05 09:18:00 100.4 kg HEIGHT 2019-11-05 09:18:00 154.5 cm WEIGHT 2019-11-05 09:18:00 100.4 kg Systolic blood pressure 2020-01-14 16:28:00 110 mm[Hg] MD Stafford Diastolic blood pressure 2020-01-14 16:28:00 74 mm[Hg] MD [facility] Heart rate 2020-01-14 16:28:00 87 /min MD Clark son Body temperature 2020-01-14 16:28:00 35.39 Gabriela MD Raf anand Respiratory rate 2020-01-14 16:28:00 20 /min MD Raf aannd Body weight 2020-01-14 16:28:00 95.7 kg MD Eduardo langston BMI 2020-01-14 16:28:00 40.09 kg/m2 MD Eduardo langston Oxygen saturation in 2020-01-14 16:28:00 94 /min MD Stafford Arterial blood by Pulse oximetry Body height 2019-11-05 14:18:00 154.5 cm MD Eduardo langston Procedures Procedure Date / Time Performed Performing Clinician [facility] e CT CHEST ABDOMEN PELVIS W 2020-01-06 16:12:37 Carine Schneider MD CONTRAST CANCER ANTIGEN 125 2020-01-06 13:00:00 Melly Hawkins MD COMPLETE BLOOD COUNT W/ 2020-01-06 13:00:00 Melly Hawkins MD nderson DIFFERENTIAL BASIC METABOLIC PANEL, 2020-01-06 13:00:00 Melly Hawkins MDson CALCIUM TOTAL BILIRUBIN TOTAL 2020-01-06 13:00:00 Melly Hawkins MD ALANINE AMINOTRANSFERASE 2020-01-06 13:00:00 Melly Hawkins MD ASPARTATE AMINOTRANSFERASE 2020-01-06 13:00:00 Melly Hawkins MAGNESIUM LEVEL 2020-01-06 13:00:00 Melly Hawkins MD Results CBC 2020-01-06 13:00:00 Melly Hawkins MD MANUAL DIFFERENTIAL 2020-01-06 13:00:00 Melly Hawkins MD GLUCOSE LEVEL 2020-01-06 13:00:00 Melly Hawkins MD BLOOD UREA NITROGEN 2020-01-06 13:00:00 Melly Hawkins MD Eduardokeith langston ELECTROLYTE PANEL 2020-01-06 13:00:00 Melly Hawkins MD n SERUM CREATININE 2020-01-06 13:00:00 Melly Hawkins MD .GLOMERULAR FILTRATION RATE 2020-01-06 13:00:00 Melly Hawkins MD CALCIUM LEVEL TOTAL 2020-01-06 13:00:00 Melly Hawkins MD CANCER ANTIGEN 125 2019-12-17 19:18:00 Ruthie Schmid COMPLETE BLOOD COUNT W/ 2019-12-17 19:18:00 Ruthie Schmid DIFFERENTIAL BASIC METABOLIC PANEL, 2019-12-17 19:18:00 Ruthie Schmid MD CALCIUM TOTAL BILIRUBIN TOTAL 2019-12-17 19:18:00 Ruthie Schmiders on ALANINE AMINOTRANSFERASE 2019-12-17 19:18:00 Ruthie Schmid MD ASPARTATE AMINOTRANSFERASE 2019-12-17 19:18:00 Ruthie Schmid MAGNESIUM LEVEL 2019-12-17 19:18:00 Ruthie Schmid MD [place] on Results CBC 2019-12-17 19:18:00 Ruthie Schmid MD [place] on MANUAL DIFFERENTIAL 2019-12-17 19:18:00 Ruthie Schmid MD derson GLUCOSE LEVEL 2019-12-17 19:18:00 Ruthie Schmid MD [place] on BLOOD UREA NITROGEN 2019-12-17 19:18:00 Ruthie Schmid MDson ELECTROLYTE PANEL 2019-12-17 19:18:00 Ruthie Schmid MD Denilson rson SERUM CREATININE 2019-12-17 19:18:00 Ruthie Schmid MD Eduardo son .GLOMERULAR FILTRATION RATE 2019-12-17 19:18:00 Ruthie Schmid Ma, MD CALCIUM LEVEL TOTAL 2019-12-17 19:18:00 Ruthie Schmid MD CANCER ANTIGEN 125 2019-11-26 18:31:00 Melly Hawkins MD [place] on COMPLETE BLOOD COUNT W/ 2019-11-26 18:31:00 Melly Hawkins MD nderson DIFFERENTIAL BASIC METABOLIC PANEL, 2019-11-26 18:31:00 Melly Hawkins MD CALCIUM TOTAL BILIRUBIN TOTAL 2019-11-26 18:31:00 Melly Hawkins MD ALANINE AMINOTRANSFERASE 2019-11-26 18:31:00 Melly Hawkins MD ASPARTATE AMINOTRANSFERASE 2019-11-26 18:31:00 Melly Hawkins MAGNESIUM LEVEL 2019-11-26 18:31:00 Melly Hawkins MD Results CBC 2019-11-26 18:31:00 Melly Hawkins MD MANUAL DIFFERENTIAL 2019-11-26 18:31:00 Melly Hawkins MD Eduardo son GLUCOSE LEVEL 2019-11-26 18:31:00 Melly Hawkins MD BLOOD UREA NITROGEN 2019-11-26 18:31:00 Melly Hawkins MD Eduardo son ELECTROLYTE PANEL 2019-11-26 18:31:00 Melly Hawkins MD SERUM CREATININE 2019-11-26 18:31:00 Melly Hawkins MD .GLOMERULAR FILTRATION RATE 2019-11-26 18:31:00 Melly Hawkins MD CALCIUM LEVEL TOTAL 2019-11-26 18:31:00 [facility] PROTEIN / CREATININE RATIO 2019-11-26 18:19:[address] CHEST ABDOMEN PELVIS W 2019-10-31 17:19:00 Carine Schneider MD CONTRAST COMPLETE BLOOD COUNT W/ 2019-10-31 13:55:00 Melly Hawkins MD nderson DIFFERENTIAL BASIC METABOLIC PANEL, 2019-10-31 13:55:00 Melly Hawkins MD derson CALCIUM IONIZED BILIRUBIN TOTAL 2019-10-31 13:55:00 Melly Hawkins MD ALANINE AMINOTRANSFERASE 2019-10-31 13:55:00 Melly Hawkins MD ASPARTATE AMINOTRANSFERASE 2019-10-31 13:55:00 Melly Hawkins MAGNESIUM LEVEL 2019-10-31 13:55:00 Melly Hawkins MD CANCER ANTIGEN 125 2019-10-31 13:55:00 Carine Schneiderers on Results CBC 2019-10-31 13:55:00 Melly Hawkins MD MANUAL DIFFERENTIAL 2019-10-31 13:55:00 [facility] GLU[facility]SE LEV[facility] 2019-10-31 13:55:00 Melly Hawkins MD BLOOD UREA NITROGEN 2019-10-31 13:55:00 Melly Hawkins MD Eduardo son ELECTROLYTE PANEL 2019-10-31 13:55:00 Melly Hawkins MD SERUM CREATININE 2019-10-31 13:55:00 Melly Hawkins MD .GLOMERULAR FILTRATION RATE 2019-10-31 13:55:[address] CHEST ABDOMEN PELVIS W 2019-09-14 17:27:09 Kiko Castro MD CONTRAST COMPREHENSIVE METABOLIC PANEL 2019-09-14 14:21:00 Kiko Castro MD MAGNESIUM LEVEL 2019-09-14 14:21:00 Kiko Castro MD COMPLETE BLOOD COUNT W/ 2019-09-14 14:21:00 Kiko Castro MDrson DIFFERENTIAL CANCER ANTIGEN 125 2019-09-14 14:21:00 Kiko Castro MD on GLUCOSE LEVEL 2019-09-14 14:21:00 Kiko Castro MD BLOOD UREA NITROGEN 2019-09-14 14:21:00 Kiko Castro MD Eduardo son ELECTROLYTE PANEL 2019-09-14 14:21:00 Kiko Castro MDo n SERUM CREATININE 2019-09-14 14:21:00 Kiko Castro MD .GLOMERULAR FILTRATION RATE 2019-09-14 14:21:00 Kiko Castro MD CALCIUM LEVEL TOTAL 2019-09-14 14:21:00 K[facility] ALBUMIN LEVEL 2019-09-14 14:21:00 Kiko Castro MD ALKALINE PHOSPHATASE 2019-09-14 14:21:00 Kiko Castro MD rson ALANINE AMINOTRANSFERASE 2019-09-14 14:21:00 Kiko Castro MD ASPARTATE AMINOTRANSFERASE 2019-09-14 14:21:00 Kiko Castro TOTAL PROTEIN 2019-09-14 14:21:00 Kiko Castro MD FRACTIONATED BILIRUBIN 2019-09-14 14:21:00 Kiko Castro MDson Results CBC 2019-09-14 14:21:00 Kiko Castro MD MANUAL DIFFERENTIAL 2019-09-14 14:21:00 Kiko Castro MD Eduardo kian CANCER ANTIGEN 125 2019-08-28 13:25:00 Melly Hawkins MD on COMPLETE BLOOD COUNT W/ 2019-08-28 13:25:00 Melly Hawkins MDon DIFFERENTIAL BASIC METABOLIC PANEL, 2019-08-28 13:25:00 Melly Hawkins MDson CALCIUM IONIZED BILIRUBIN TOTAL 2019-08-28 13:25:00 Melly Hawkins MD ALANINE AMINOTRANSFERASE 2019-08-28 13:25:00 Melly Hawkins MD ASPARTATE AMINOTRANSFERASE 2019-08-28 13:25:00 Melly Hawkins MAGNESIUM LEVEL 2019-08-28 13:25:00 Melly Hawkins MD Results CBC 2019-08-28 13:25:00 Melly Hawkins MD MANUAL DIFFERENTIAL 2019-08-28 13:25:00 [facility] GLUCOSE LEVEL 2019-08-28 13:25:00 Melly Hawkins MD BLOOD UREA NITROGEN 2019-08-28 13:25:00 Melly Hawkins MD Eduardo son ELECTROLYTE PANEL 2019-08-28 13:25:00 Melly Hawkins MDo loly SERUM CREATININE 2019-08-28 13:25:00 Melly Hawkins MD .GLOMERULAR FILTRATION RATE 2019-08-28 13:25:00 Melly Hawkins MD CALCIUM IONIZED, VENOUS 2019-08-28 13:25:00 Melly Hawkins MD PROTEIN / CREATININE RATIO 2019-08-28 13:20:00 Melly Hawkins URINE CANCER ANTIGEN 125 2019-08-07 13:36:00 Melly Hawkins MD on COMPLETE BLOOD COUNT W/ 2019-08-07 13:36:00 Melly Hawkins MD DIFFERENTIAL BASIC METABOLIC PANEL, 2019-08-07 13:36:00 Melly Hawkins MD derson CALCIUM IONIZED BILIRUBIN TOTAL 2019-08-07 13:36:00 Melly Hawkins MD ALANINE AMINOTRANSFERASE 2019-08-07 13:36:00 Melly Hawkins MD ASPARTATE AMINOTRANSFERASE 2019-08-07 13:36:00 Melly Hawkins MAGNESIUM LEVEL 2019-08-07 13:36:00 Melly Hawkins MD Results CBC 2019-08-07 13:36:00 Melly Hawkins MD MANUAL DIFFERENTIAL 2019-08-07 13:36:00 Mel[facility] GLUCOSE LEVEL 2019-08-07 13:36:00 Melly Hawkins MD BLOOD UREA NITROGEN 2019-08-07 13:36:00 Melly Hawkins MD Eduardo son ELECTROLYTE PANEL 2019-08-07 13:36:00 Melly Hawkins MD SERUM CREATININE 2019-08-07 13:36:00 Melly Hawkins MD .GLOMERULAR FILTRATION RATE 2019-08-07 13:36:00 Melly Hawkins MD CALCIUM IONIZED, VENOUS 2019-08-07 13:36:[address] CHEST ABDOMEN PELVIS W 2019-07-19 14:57:00 Mary Quintanilla MD CONTRAST PROTEIN / CREATININE RATIO 2019-07-19 11:39:00 Melly Hawkins URINE CANCER ANTIGEN 125 2019-07-19 11:39:00 Melly Hawkins MD on COMPLETE BLOOD COUNT W/ 2019-07-19 11:39:00 Melly Hawkins MD DIFFERENTIAL BASIC METABOLIC PANEL, 2019-07-19 11:39:00 Melly Hawkins MD derson CALCIUM IONIZED BILIRUBIN TOTAL 2019-07-19 11:39:00 Melly Hawkins MD ALANINE AMINOTRANSFERASE 2019-07-19 11:39:00 Melly Hawkins MD ASPARTATE AMINOTRANSFERASE 2019-07-19 11:39:00 Melly Hawkins MAGNESIUM LEVEL 2019-07-19 11:39:00 Melly Hawkins MD Results CBC 2019-07-19 11:39:00 Melly Hawkins MD MANUAL DIFFERENTIAL 2019-07-19 11:39:00 Melly Hawkins MD Eduardo son GLUCOSE LEVEL 2019-07-19 11:39:00 Melly Hawkins MD BLOOD UREA NITROGEN 2019-07-19 11:39:00 Melly Hawkins MD Eduardo son ELECTROLYTE PANEL 2019-07-19 11:39:00 Melly Hawkins MD Anderso n SERUM CREATININE 2019-07-19 11:39:00 Melly Hawkins MD .GLOMERULAR FILTRATION RATE 2019-07-19 11:39:00 Melly Hawkins MD CALCIUM IONIZED, VENOUS 2019-07-19 11:39:00 Melly Hawkins MD XR CHEST 2 VW 2019-07-10 17:39:57 Mary Lerner MD XR CHEST 2 VW 2019-06-26 16:00:24 Blanka Huizar MD CANCER ANTIGEN 125 2019-06-26 14:35:00 Melly Hawkins MD on COMPLETE BLOOD COUNT W/ 2019-06-26 14:35:00 Shruthi, Melly MD A nderson DIFFERENTIAL BASIC METABOLIC PANEL, 2019-06-26 14:35:00 Melly Hawkins MDson CALCIUM IONIZED BILIRUBIN TOTAL 2019-06-26 14:35:00 Melly Hawkins MD ALANINE AMINOTRANSFERASE 2019-06-26 14:35:00 Melly Hawkins MD ASPARTATE AMINOTRANSFERASE 2019-06-26 14:35:00 Melly Hawkins MAGNESIUM LEVEL 2019-06-26 14:35:00 Melly Hawkins MD Results CBC 2019-06-26 14:35:00 Melly Hawkins MD MANUAL DIFFERENTIAL 2019-06-26 14:35:00 [facility] GLUCOSE LEVEL 2019-06-26 14:35:00 Melly Hawkins MD BLOOD UREA NITROGEN 2019-06-26 14:35:00 Melly Hawikns MD [facility] ELECTROLYTE PANEL 2019-06-26 14:35:00 Melly Hawkins MD [facility]INE 2019-06-26 14:35:00 Melly Hawkins MD .GLOMERULAR FILTRATION RATE 2019-06-26 14:35:00 Melly Hawkins MD CALCIUM IONIZED, VENOUS 2019-06-26 14:35:00 Melly Hawkins MD PROTEIN / CREATININE RATIO 2019-06-05 14:42:00 Melly Hawkins URINE CANCER ANTIGEN 125 2019-06-05 14:42:00 Melly Hawkins MD on COMPLETE BLOOD COUNT W/ 2019-06-05 14:42:00 Melly Hawkins MDrscoco DIFFERENTIAL BASIC METABOLIC PANEL, 2019-06-05 14:42:00 Melly Hawkins MD CALCIUM IONIZED BILIRUBIN TOTAL 2019-06-05 14:42:00 Melly Hawkins MD ALANINE AMINOTRANSFERASE 2019-06-05 14:42:00 Melly Hawkins MD ASPARTATE AMINOTRANSFERASE 2019-06-05 14:42:00 Melly Hawkins MAGNESIUM LEVEL 2019-06-05 14:42:00 Melly Hawkins MD Results CBC 2019-06-05 14:42:00 Melly Hawkins MD MANUAL DIFFERENTIAL 2019-06-05 14:42:00 Melly Hawkins MD [facility] GLUCOSE LEVEL 2019-06-05 14:42:00 Melly Hawkins MD BLOOD UREA NITROGEN 2019-06-05 14:42:00 Melly Hawkins MD [facility] ELECTROLYTE PANEL 2019-06-05 14:42:00 Melly Hawkins MD SERUM CREATININE 2019-06-05 14:42:00 Melly Hawkins MD .GLOMERULAR FILTRATION RATE 2019-06-05 14:42:00 Melly Hawkins MD CALCIUM IONIZED, VENOUS 2019-06-05 14:42:00 Melly Hawkins MD nderson XR CHEST 2 VW 2019-05-30 20:36:26 Sameer Clements MD Denilson rson ORTHOPANTOGRAM 2019-05-30 19:20:54 Sedrick Vanegas MD [facility] CANCER ANTIGEN 125 2019-05-10 15:41:00 Bhupendra Solomon COMPLETE BLOOD COUNT W/ 2019-05-10 15:41:00 Bhupendra Solomon MD DIFFERENTIAL COMPREHENSIVE METABOLIC PANEL 2019-05-10 15:41:00 Paramjit Solomon MD Results CBC 2019-05-10 15:41:00 Melly Hawkins MD MANUAL DIFFERENTIAL 2019-05-10 15:41:00 Melly Hawkins MD [facility] GLUCOSE LEVEL 2019-05-10 15:41:00 Melly Hawkins MD BLOOD UREA NITROGEN 2019-05-10 15:41:00 Melly Hawkins MD [facility] ELECTROLYTE PANEL 2019-05-10 15:41:00 Melly Hawkins MD SERUM CREATININE 2019-05-10 15:41:00 Melly Hawkins MD .GLOMERULAR FILTRATION RATE 2019-05-10 15:41:00 Melly Hawkins MD CALCIUM LEVEL TOTAL 2019-05-10 15:41:00 Melly Hawkins MD [facility] ALBUMIN LEVEL 2019-05-10 15:41:00 Melly Hawkins MD ALKALINE PHOSPHATASE 2019-05-10 15:41:00 Melly Hawkins MD Denilson rson ALANINE AMINOTRANSFERASE 2019-05-10 15:41:00 Melly Hawkins MD ASPARTATE AMINOTRANSFERASE 2019-05-10 15:41:00 Melly Hawkins TOTAL PROTEIN 2019-05-10 15:41:00 Melyl Hawkins MD FRACTIONATED BILIRUBIN 2019-05-10 15:41:00 Melly Hawkins MD XR CHEST 2 VW POST IMPLANT 2019-05-09 18:48:58 Bhavya Barclay XR CHEST 2 VW 2019-05-09 18:09:11 Sameer Clements MD Denilson rson PROTEIN BODY FLUID 2019-05-09 18:01:00 Bhavya Barclay MD [place] on TRIGLYCERIDE BODY FLUID 2019-05-09 18:01:00 Bhavya Barclay MD CHOLESTEROL BODY FLUID 2019-05-09 18:01:00 Bhavya Barclay MD AMYLASE LEVEL BODY FLUID 2019-05-09 18:01:00 Bhavya Barclay MD CELL COUNT W/ DIFF BODY FLUID 2019-05-09 18:01:00 Bhavya Barclay MD BODY FLUID CULTURE 2019-05-09 18:01:00 Bhavya Barclay MD [place] on CELL COUNT BODY FLUID 2019-05-09 18:01:00 Bhavya Barclay MD And erson BODY FLUID DIFFERENTIALS 2019-05-09 18:01:00 Bhavya Barclay MD BODY FLUID DIFF PATH REVIEW 2019-05-09 18:01:00 Bhavya Barclay MD GLUCOSE BODY FLUID 2019-05-09 18:01:00 Bhavya Barclay MD [place] [facility] [place] MISCELLANEOUS TEST 2019-05-09 18:01:00 Bhavya Barclay MDon NON ACCOUNT EXECUTIVE HISTORIC 2019-05-09 18:00:00 Conversion, Pathology MD Eden galicia CYTOPATHOLOGY NON-ACCOUNT EXECUTIVE 2019-05-09 17:46:00 Bhavya Barclay MD And erson INTERPRETATION INSERTION OF INDWELLING 2019-05-09 17:10:00 Bhavya Barclay MD nderson TUNNELED PLEURAL CATHETER WITH CUFF-RIGHT POC GLUCOSE SCREEN 2019 18:44:00 Cely Glasgow MD And erson POC GLUCOSE SCREEN 2019 15:03:00 Cely Glasgow MD And erson BASIC METABOLIC PANEL, 2019 09:02:00 Jorge Clemente MD CALCIUM IONIZED MAGNESIUM LEVEL 2019 09:02:00 Jorge Clemente MD PHOSPHORUS LEVEL 2019 09:02:00 Jorge Clemente MD COMPLETE BLOOD COUNT W/ 2019 09:02:00 Jorge Clemente MDrson DIFFERENTIAL GLUCOSE LEVEL 2019 09:02:00 Jorge Clemente MD BLOOD UREA NITROGEN 2019 09:02:00 Bryn, Jorge CESPEDES Eduardo son ELECTROLYTE PANEL 2019 09:02:00 Bryn, Jorge Qiu n SERUM CREATININE 2019 09:02:00 Jorge Clemente MD .GLOMERULAR FILTRATION RATE 2019 09:02:00 Jorge Clemente MD CALCIUM IONIZED, VENOUS 2019 09:02:00 Jorge Clemente MDrson Results CBC 2019 09:02:00 Jorge Clemente MD MANUAL DIFFERENTIAL 2019 09:02:00 Jorge Clemente MD Eduardo son CT CHEST PULMONARY EMBOLISM W 2019 04:49:12 Jung Montes De Oca MD CONTRAST POC GLUCOSE SCREEN 2019-05-06 23:54:00 Frank MontesD e Oca MD nderson POC GLUCOSE SCREEN 2019-05-06 20:06:00 Frank Montes De Oca MD nderson HOME O2 EVAL 2019-05-06 19:42:41 Korey Bishop MD IR CHEST XRAY 1 VIEW 2019-05-06 18:15:00 Virgilio Fernandez MD rson IR US GUIDED THORACENTESIS 2019-05-06 18:06:56 Jorge Clemente POC GLUCOSE SCREEN 2019-05-06 14:15:00 Frank Montes De Oca MD BASIC METABOLIC PANEL, 2019-05-06 09:39:00 Jorge Clemente MD CALCIUM IONIZED MAGNESIUM LEVEL 2019-05-06 09:39:00 Jorge Clemente MD PHOSPHORUS LEVEL 2019-05-06 09:39:00 Jorge Clemente MD COMPLETE BLOOD COUNT W/ 2019-05-06 09:39:00 Jorge Clemente MDrson DIFFERENTIAL GLUCOSE LEVEL 2019-05-06 09:39:00 Jorge Clemente MD BLOOD UREA NITROGEN 2019-05-06 09:39:00 Jorge Clemente MD Eduardo son ELECTROLYTE PANEL 2019-05-06 09:39:00 Jorge Clemente MD n SERUM CREATININE 2019-05-06 09:39:00 Jorge Clemente MD .GLOMERULAR FILTRATION RATE 2019-05-06 09:39:00 Jorge Clemente MD CALCIUM IONIZED, VENOUS 2019-05-06 09:39:00 Jorge Clemente MDon Results CBC 2019-05-06 09:39:00 Jorge Clemente MD MANUAL DIFFERENTIAL 2019-05-06 09:39:00 Jorge Clemente MD XR CHEST 2 VW 2019-05-06 03:54:17 Cely Cui MD derson XR ABDOMEN 2 VW AP W UPRIGHT 2019-05-06 03:53:24 Cely Cui MD AND OR DECUBITUS COMPLETE BLOOD COUNT W/ 2019-05-06 03:51:00 Cely Cui MD DIFFERENTIAL COMPREHENSIVE METABOLIC PANEL 2019-05-06 03:51:00 Cely Cui MD MAGNESIUM LEVEL 2019-05-06 03:51:00 Cely Cui MD PHOSPHORUS LEVEL 2019-05-06 03:51:00 Cely Cui MDon CARDIAC PANEL 2019-05-06 03:51:00 Cely Cui MD NT PRO BNP 2019-05-06 03:51:00 Cley Cui MD PROTHROMBIN TIME 2019-05-06 03:51:00 Cely uCi MD PARTIAL THROMBOPLASTIN TIME 2019-05-06 03:51:00 Josue Cui MD D DIMER 2019-05-06 03:51:00 Cely Cui MD CANCER ANTIGEN 125 2019-05-06 03:51:00 Cely Cui MD Results CBC 2019-05-06 03:51:00 Cely Cui MD MANUAL DIFFERENTIAL 2019-05-06 03:51:00 Cely Cui GLUCOSE LEVEL 2019-05-06 03:51:00 Cely Cui MD BLOOD UREA NITROGEN 2019-05-06 03:51:00 Cely Cui ELECTROLYTE PANEL 2019-05-06 03:51:00 Cely Cui MD SERUM CREATININE 2019-05-06 03:51:00 Cely Cui MD nderson .GLOMERULAR FILTRATION RATE 2019-05-06 03:51:00 Josue Cui MD CALCIUM LEVEL TOTAL 2019-05-06 03:51:00 Cely Cui ALBUMIN LEVEL 2019-05-06 03:51:00 Cely Cui MD ALKALINE PHOSPHATASE 2019-05-06 03:51:00 Cely Cui MD ALANINE AMINOTRANSFERASE 2019-05-06 03:51:00 Mena Cui MD ASPARTATE AMINOTRANSFERASE 2019-05-06 03:51:00 Kaylie Cui MD TOTAL PROTEIN 2019-05-06 03:51:00 Cely Cui MD FRACTIONATED BILIRUBIN 2019-05-06 03:51:00 Cely Cui MD XR CHEST 2 VW 2019-04-10 17:09:42 Bhupendra Solomon MD nderson CANCER ANTIGEN 125 2019-04-10 15:22:00 Ar Leos MD COMPLETE BLOOD COUNT W/ 2019-04-10 15:22:00 Clarence Leos MD DIFFERENTIAL Evan BASIC METABOLIC PANEL, 2019-04-10 15:22:00 Ar Leos MD CALCIUM IONIZED Evan BILIRUBIN TOTAL 2019-04-10 15:22:00 Ar Leos MD And roly Gordon ASPARTATE AMINOTRANSFERASE 2019-04-10 15:22:00 Jose Leos MD ALANINE AMINOTRANSFERASE 2019-04-10 15:22:00 Benson Leos MD MAGNESIUM LEVEL 2019-04-10 15:22:00 Ar Leso MD And roly Gordon Results CBC 2019-04-10 15:22:00 Melly Hawkins MD MANUAL DIFFERENTIAL 2019-04-10 15:22:00 [facility] 2019-04-10 15:22:00 Melly Hawkins MD BLOOD UREA NITROGEN 2019-04-10 15:22:00 [facility] ELECTROLYTE PANEL 2019-04-10 15:22:00 Melly Hawkins [facility] SERUM CREATININE 2019-04-10 15:22:00 Melly Hawkins MD .GLOMERULAR FILTRATION RATE 2019-04-10 15:22:00 Melly Hawkins MD CALCIUM IONIZED, VENOUS 2019-04-10 15:22:00 Melly Hawkins MD CANCER ANTIGEN 125 2019-03-13 15:14:00 Kiko Castro MD on COMPLETE BLOOD COUNT W2019-03-13 15:14:00 Kiko Castro MDrson DIFFERENTIAL BASIC METABOLIC PANEL, 2019-03-13 15:14:00 Kiko Castro MD derson CALCIUM IONIZED BILIRUBIN TOTAL 2019-03-13 15:14:00 Kiko Castro MD ASPARTATE AMINOTRANSFERASE 2019-03-13 15:14:00 Kiko Castro ALANINE AMINOTRANSFERASE 2019-03-13 15:14:00 Kiko Castro MD MAGNESIUM LEVEL 2019-03-13 15:14:00 Kiko Castro MD Results CBC 2019-03-13 15:14:00 Kiko Castro MD MANUAL DIFFERENTIAL 2019-03-13 15:14:00 Kiko Castro MD [facility] GLUCOSE LEVEL 2019-03-13 15:14:00 Kiko Castro MD BLOOD UREA NITROGEN 2019-03-13 15:14:00 Kiko Castro MD [facility] son ELECTROLYTE PANEL 2019-03-13 15:14:00 Kiko Castro MD Andmingo loly SERUM CREATININE 2019-03-13 15:14:00 Kiko Castro MD .GLOMERULAR FILTRATION RATE 2019-03-13 15:14:00 Kiko Castro MD CALCIUM IONIZED, VENOUS 2019-03-13 15:14:00 Kiko Castro MDrscoco COMPLETE BLOOD COUNT W/ 2019-02-22 16:26:00 Melly Hawkins MDrson DIFFERENTIAL Results CBC 2019-02-22 16:26:00 Melly Hawkins MD MANUAL DIFFERENTIAL 2019-02-22 16:26:00 Melly Hawkins MD Eduardo son SPIROMETRY W/O DILATORS, DLCO 2019-01-31 21:10:10 Sanjeev Ozuna MD AND BODY PLETHSMOGRAPHIC LUNG VOLUMES TRANSFUSE RED BLOOD CELLS 2019-01-17 00:56:27 Mary Quintanilla MD TRANSFUSE RED BLOOD CELLS 2019-01-16 20:54:51 Mary Quintanilla MD TYPE AND SCREEN 2019-01-16 14:44:00 Mary Quintanilla MD [place] on ABORH 2019-01-16 14:44:00 Mary Quintanilla MD on ANTIBODY SCREEN 2019-01-16 14:44:00 Mary Quintanilla MD on CLOT EXPIRATION DATE 2019-01-16 14:44:00 Mary Quintanilla MD nderson TMP INTERPRETATION ANTIBODY 2019-01-16 14:44:00 Mary Quintanilla MD SCREEN NEGATIVE TMP CROSSMATCH INTERPRETATION 2019-01-16 14:44:00 Josette Quintanilla MD PREPARE RBC 2019-01-16 14:23:00 Mary Quintanilla MD [place] on CANCER ANTIGEN 125 2019-01-16 13:25:00 Melly Hawkins MD [place] on COMPLETE BLOOD COUNT W/ 2019-01-16 13:25:00 Melly Hawkins MD nderson DIFFERENTIAL BASIC METABOLIC PANEL, 2019-01-16 13:25:00 Melly Hawkins MD derson CALCIUM IONIZED BILIRUBIN TOTAL 2019-01-16 13:25:00 Melly Hawkins MD ALANINE AMINOTRANSFERASE 2019-01-16 13:25:00 Melly Hawkins MD ASPARTATE AMINOTRANSFERASE 2019-01-16 13:25:00 Melly Hawikns MAGNESIUM LEVEL 2019-01-16 13:25:00 Melly Hawkins MD Results CBC 2019-01-16 13:25:00 Melly Hawkins MD MANUAL DIFFERENTIAL 2019-01-16 13:25:00 Melly Hawkins MD son GLUCOSE LEVEL 2019-01-16 13:25:00 Melly Hawkins MD BLOOD UREA NITROGEN 2019-01-16 13:25:00 Melly Hawkins MD Eduardo son ELECTROLYTE PANEL 2019-01-16 13:25:00 Melly Hawkins MD SERUM CREATININE 2019-01-16 13:25:00 Melly Hawkins MD .GLOMERULAR FILTRATION RATE 2019-01-16 13:25:00 Melly Hawkins MD CALCIUM LEVEL IONIZED 2019-01-16 13:25:00 Melly Hawkins MD And erson PROTEIN / CREATININE RATIO 2019-01-16 12:49:00 Melly Hawkins URINE Encounters Start End Encounter Admission Attending Care Care Encounter Source Date/Time Date/Time Type Type Clinicians Facility Department ID 2019-12-05 Outpatient SHRUTHI MDA MDA [id number] 13:29:13 MELLY salcido 2019-11-29 Outpatient SYSTEM, MDA MDA [id number] 15:48:23 PROVIDER [place] salcido 2019-11-01 Outpatient ERICA SHOEMAKER MDA MDA [id number] 12:57:29 Androxy salcido 2019-10-20 Outpatient MDA MDA [id number] 12:11:37 Androxy salcido 2019-10-15 Outpatient SYSTEM, MDA MDA [id number] 17:25:55 PROVIDER [place] salcido 2020-02-21 2020-02-21 Outpatient JOSUE RAMIREZO MDA MDA [id number] 00:00:00 00:00:00 SAMEER TORRES rso n 2020-02-21 2020-02-21 Outpatient CARR[place] MDA MDA [id number] 00:00:00 00:00:00 SAMEER TORRES Denilson rso n 2020-01-14 2020-01-14 Outpatient JOSUE HAWKINS, MDA MDA [id number] 11:00:59 15:07:48 MELLY salcido 2020-01-08 2020-01-08 Outpatient JOSUE WILSONSHRUTHI, MDA MDA [id number] 08:56:00 09:24:20 MELLY salcido 2020-01-06 2020-01-06 Outpatient EL SHRUTHI, MDA MDA [id number] 08:05:08 23:59:00 MELLY salcido 2020-01-06 2020-01-06 Outpatient JOSUE HAWKINS MDA MDA [id number] 07:30:00 08:04:00 MELLY salcido 2019-12-27 2019-12-27 [facility] [id number] 13:00:00 13:00:00 [place] [address] [facility] 2019-12-24 2019-12-24 Outpatient JOSUE SCHMID MDA MDA [id number] 09:47:26 17:05:53 RUTHIE salcido 2019-12-24 2019-12-24 Outpatient JOSUE SCHMID MDA MDA [id number] 09:14:28 09:24:39 RUTHIE salcido 2019-12-19 2019-12-19 Outpatient JOSUE SCHMID MDA MDA [id number] 00:00:00 00:00:00 RUTHIE salcido 2019-12-18 2019-12-18 Outpatient JOSUE HAWKINS MDA MDA [id number] 09:22:07 09:43:41 MELLY salcido 2019-12-18 2019-12-18 Outpatient JOSUE SCHMID MDA MDA [id number] 00:00:00 00:00:00 RUTHIE salcido 2019-12-17 2019-12-17 Outpatient JOSUE SCHMID MDA MDA [id number] 14:03:00 23:59:00 RUTHIE salcido 2019-12-14 2019-12-14 [facility] [id number] 08:21:00 08:21:00 [place] [address] [facility] 2019-12-05 2019-12-05 [facility] [id number] 15:18:00 15:18:00 [place] [employer] - Drive [facility] Clin[facility] 2019-11-30 2019-11-30 Outpatient JOSUE HAWKISN MDA MDA [id number] 00:00:00 00:00:00 MELLY salcido 2019-11-28 2019-11-28 Outpatient JOSUE HAWKINS MDA MDA [id number] 09:17:53 15:42:22 MELLY salcido 2019-11-27 2019-11-27 Outpatient JOSUE HAWKINS MDA MDA [id number] 10:49:46 11:58:56 MELLY salcido 2019-11-27 2019-11-27 Outpatient JOSUE HAWKINS MDA MDA [id number] 00:00:00 00:00:00 MELLY salcido 2019-11-26 2019-11-26 Outpatient JOSUE HAWKINS MDA MDA [id number] 13:19:20 13:24:13 MELLY salcido 2019-11-23 2019-11-23 [facility] [id number] 15:51:00 15:51:00 t sharing[employer]it [facility] 2019-11-21 2019-11-21 Outpatient JOSUE HAWKINS MDA MDA [id number] 12:03:10 12:29:08 MELLY salcido 2019-11-09 2019-11-09 [facility] [id number] [address] 15:20:00 15:20:00 t sharing[employer]it [facility] 2019-11-09 2019-11-09 Outpatient JOSUE HAWKINS MDA MDA [id number] 00:00:00 00:00:00 MELLY salcido 2019-11-05 2019-11-05 Outpatient JOSUE HAWKINS MDA MDA [id number] 09:01:52 13:01:11 MELLY salcido 2019-11-01 2019-11-01 Outpatient JOSUE HAWKINS MDA MDA [id number] 09:42:21 10:32:22 MELLY salcido 2019-10-31 2019-10-31 Outpatient JOSUE HAWKINS, MDA MDA [id number] 08:55:46 08:55:46 MELLY salcido 2019-10-31 2019-10-31 Outpatient JOSUE HAWKINS, MDA MDA [id number] 08:17:29 08:48:00 MELLY salcido 2019-09-26 2019-09-26 [facility] [id number] [address] 15:45:00 15:45:00 t sharing[employer]it [facility] 2019-09-26 2019-09-26 [facility] [id number] [address] 15:45:00 15:45:00 [place] [employer] - Drive [facility] 2019-09-14 2019-09-14 Outpatient JOSEU CASTRO MDA SWETA [id number] 09:22:38 09:22:38 KIKO salcido 2019-08-01 2019-08-01 [facility] [id number] [address] 08:45:00 08:45:00 [place] [employer] - Drive [facility] 2019-03-29 2019-03-29 [facility] [id number] [address] 11:54:00 11:54:00 [place] [employer] - [employer] [facility] 2019-03-27 2019-03-27 [facility] [id number] 10:15:00 10:15:00 [place] [employer] - Drive [facility] 2019-01-03 2019-01-03 [facility] [id number] 12:02:00 12:02:00 [place] [employer] - [employer] [facility] Clin[facility] 2019-01-03 2019-01-03 [facility] [id number] [facility] 10:00:00 10:00:00 [place] [employer] s - Drive [facility] 2018-12-26 2018-12-26 [facility] [id number] [facility] 10:15:00 10:15:00 t [place] [employer] s - Drive [facility] Out[facility] Clin[facility] 2018-11-30 2018-11-30 [facility] [id number] 15:45:00 15:45:00 t [place] [employer] s - Drive [facility] Out[facility] Clinics 2018-11-03 2018-11-03 [facility] [id number] 17:07:00 17:07:00 t [place] [employer] [facility] Medicine l Medicine Outpati ent Clinics 2018-07-26 2018-07-26 [facility] [id number] [address] 09:15:00 09:15:[address] Luke s - Drive [facility] Medicine l Medicine Outpati ent Clinics 2018-07-21 2018-07-21 [facility] [id number] 10:08:00 10:08:[address] Luke s - Drive [facility] Medicine l Medicine Outpati ent Clinics 2018-07-16 2018-07-16 [facility] [id number] 21:46:00 21:46:00 t [facility] Luke s - Road [facility] Medicine l Medicine Outpati ent Clinics 2018-06-27 2018-06-27 [facility] [id number] 09:00:00 09:00:[address] Luke s - Drive [facility] Medicine Outpati ent Clinics 2018-05-23 2018-05-23 [facility] [id number] 10:42:00 10:42:[address] Luke s - Drive [facility] Medicine l Medicine Outpati ent Clinics 2018-05-16 2018-05-16 [facility] [id number] 08:15:00 08:15:[address] Luke s - Drive [facility] Medicine Outpati ent Clinics 2018-04-06 2018-04-06 [facility] [id number] [address] 14[facility]01:00 14:01:[address] Luke s - Drive [facility] Medicine l Medicine Outpati ent Clinics 2018-02-01 2018-02-01 [facility] [id number] [address] 14:42:00 14:42:[address] Luke s - Drive [facility] l Medicine Outpati ent Clinics 2018-01-25 2018-01-25 [facility] [id number] 09:45:00 09:45:[address] Luke s - Drive [facility] l Medicine Outpati ent Clinics 2017-12-07 2017-12-07 [facility] [id number] [address] 07:57:00 07:57:[address] [facility] ent [facility] 2017-10-10 2017-10-10 Outpatient Braden Rodas [id number] 10:45:00 10:45:00 [facility] 2017-08-25 2017-08-25 Outpatient Braden Rodas [id number] 10:00:00 10:00:00 [facility] Results Test Description Test Time Test Comments Results Result [facility] e Comments CT Chest Abdomen 2020-01-07 1. Decreased MD Eden galicia Pelvis with 15:03:39 thoracic, abdominal Contrast and retroperitoneal adenopathy and improved peritoneal carcinomatosis. 2. No evidence for new or progressive metastatic disease. Interface, Radiology Results In - 01/07/2020 10:05 AM CDTFULL RESULT:Examination: CT CHEST ABDOMEN PELVIS W CONTRAST, 01/06/2020 11:12 AMClinical History: Malignant neoplasm of left ovaryIndication: Response assessment - post-chemotherapy, induction, treatment planningComparison: 10/31/2019.Technique: CT of the chest, abdomen, and pelvis was performed with intravenous contrast.Findings: Chest:Right Port-a-Cath tip terminates at the atriocaval junction. There is decreased left supraclavicular, right paratracheal and right axillary adenopathy. Right axillary adenopathy measures 2.4 x 2.1 cm as seen on series 3 image 29, previously 2.8 x 2.7 cm. Right paratracheal adenopathy measures 1.6 cm in short axis diameter seen on series 3 image 44, previously 2.2 cm. There is unchanged right hilar adenopathy.Again seen is circumferential right-sided pleural thickening and anterior diaphragmatic adenopathy, unchanged. There is a moderate right pleural effusion and associated right lower lobe atelectasis, also stable.There is increasing interlobular septal thickening and subtle groundglass opacification in the right and left lungs, which is nonspecific in etiology. There is a new groundglass nodularity in the right upper lobe measuring 1.4 cm is seen on series 3 image 37. Differential considerations favor an underlying infectious/inflammat ory etiology, less likely lymphangitic tumor spread.Abdomen and pelvis: No suspicious liver lesions. Stable punctate hypodensity in the spleen, which is nonspecific.The pancreas, adrenals are unremarkable. The kidneys enhance symmetrically without hydronephrosis.Stabl e punctate hypodensities in the kidneys, which are nonspecific.There is no right or left hydronephrosis. The bowel is nonobstructed.There are atherosclerotic calcifications of the aortoiliac arterial system.There is slightly decreased decreased left gastric, periportal, left para-aortic, aortocaval adenopathy. Global Compensation Analyst left para-aortic lymph node measures 2.2 x 1.5 cm, seen on series 3 image 194, previously 2.6 x 1.7 cm. A right posterior paracaval node measures 1.7 x 2.1 cm, presumably 1.7 x 2.4 cm.The patient is status post total abdominal hysterectomy and bilateral salpingo-oophorectom y.The nodule in the sigmoid mesentery has decreased slightly measuring 1.5 x 1.3 cm is seen on series 3 image 236, previously 1.9 x 1.5 cm.There is linear thickening along the pelvic peritoneal reflections, that is decreased in conspicuity (compare series 3 image 245 to series 7 image 282 of the prior).No suspicious osseous lesions. IMPRESSION:1. Decreased thoracic, abdominal and retroperitoneal adenopathy and improved peritoneal carcinomatosis. 2. No evidence for new or progressive metastatic disease. Differential 2020-01-06 16:23:43 Test Item Value Reference Range Interpretation Comme nts Total Cells (test code = 7642) 115 Neutrophil % (test code = 6491) 53.0 % 42-66 The Neutrophil count includes Bands. Lymphocyte % (test code = 6194) 23.0 % 24-44 L Monocyte % (test code = 6422) 22.0 % 2-7 H Eosinophil % (test code = 5520) 1.0 % 1-4 Plasmacyte % (test code = 6830) 1.0 % <=0.0 H Neutrophil Abs (test code = 6492) 2.28 K/uL 1.7-7.3 Lymphocyte Abs (test code = 6195) 0.99 K/uL 1-4.8 L Monocyte Abs (test code = 6423) 0.95 K/uL 0.08-0.7 H Eosinophil Abs (test code = 5521) 0.04 K/uL 0.04-0.4 RBC Morph (test code = 6942) Present Normal A Anisocytosis (test code = 4811) Present Not Present A Poik (test code = 6840) Present Not Present A Polychromasia (test code = 6844) Present Not Present A Ovalocyte (test code = 6584) Present Not Present A Tear Drop (test code = 7602) Present Not Present A Macrocyte (test code = 6358) Present Not Present A Slide Comments (test code = 5447) See Note A Platelet morphology normal with occasional giant platelet. Lab Interpretation (test code = Abnormal 96057-8) MD Stafford.[id number] 16:23:39 Test Item Value Reference Range Interpretation Comments WBC (test code = 4.3 K/uL 4-11 6690-2) RBC (test code = 789-8) 3.09 4.00- 5.50 M/uL L Hgb (test code = 718-7) 10.2 12.0- 16.0 gm/dL L Hct (test code = 31.8 % 37-47 L 4544-3) MPV (test code = 787-2) 11.1 fL 4-10.4 H MCH (test code = 785-6) 33.0 pg 27-31 H MCHC (test code = 32.1 31.0- 36.0 gm/dL 786-4) RDW-SD (test code = 61.0 fL 35.1-46.3 H 10554-4) RDW-CV (test code = 16.2 % 12-15.5 H 788-0) Platelet count (test 195 K/uL 140-440 code = 777-3) INRBC (test code = 0.0 % <=0.0 The INRBC (instrument 5974) NRBC) value ref lects the enumeration of nucleated red b lood cells contained in a 200uL sampleof whole blood analyzed by the instrument. Thi s value maydiffer from the NRBC value reported in a m anual differential,wh ich is based on a 100 cell differential. Lab Interpretation Abnormal (test code = 47646-0) MD StaffordGlomerular Filtration [id number] 14:05:02 Test Item Value Reference Range Interpretation Comments eGFR-AA (test 69 >=60 mL/min/1.73 sq. Normal eGFR: >= 60 code = 8062) m mL/min/1.73 m2N ote: The eGFR is calcula shara using the CKD-EPI equ ation. The eGFR declines w ith age. eGFR <60 mL/min /1.73 m2 is considered as " decreased". This equation s hould only be used for pat ients 18 and older. Acco rding to the [facility] dney Foundation's dney Disease Outcome Quality Initiative (KDO QI) classification and 2012 Kidney Disease Improving Global Outcomes (KDIGO) Clinical Practi ce Guideline, the stage of CKD should be c ategorized based on estima shara GFR. Stage Descripti on GFR mL/min/1.73 m21 Normal or high GFR >=902 Mildly de creased GFR 60-893a Mildly to moder ately decreased GFR 45-593b Moderately to s everely decreased GFR 30-444 Severely decrea sed GFR 15-295 Kidney failure <15 eGFR-TANO (test 60 >=60 mL/min/1.73 sq. Jia l eGFR: >= 60 code = 8063) m mL/min/1.73 m2N ote: The eGFR is calcula shara using the CKD-EPI equ ation. The eGFR declines w ith age. eGFR <60 mL/min /1.73 m2 is considered as " decreased". This equation s hould only be used for pat ients 18 and older. Acco rding to the National dney Foundation's dney Disease Outcome Quality Initiative (KDO QI) classification and 2012 Kidney Disease Improving Global Outcomes (KDIGO) Clinical Practi ce Guideline, the stage of CKD should be c ategorized based on estima shara GFR. Stage Descripti on GFR mL/min/1.73 m21 Normal or high GFR >=902 Mildly de creased GFR 60-893a Mildly to moder ately decreased GFR 45-593b Moderately to s everely decreased GFR 30-444 Severely decrea sed GFR 15-295 Kidney failure <15 MD S[id number] 14:05:01 Test Item Value Reference Range Interpretation Comments Magnesium (test code = 6359) 1.9 mg/dL 1.6-2.6 MD StaffordBilirubin, [id number] 14:05:00 Test Item Value Reference Range Interpretation Comments Bili Total (test 0.4 mg/dL <=1.2 Indocyanine Green (ICG) code = 5096) may cause false ly elevated bilirubin resul ts. Total and direct bili barajas must not be measured from samples contain ing indocyanine gre en. False elevation of to madhu bilirubin can b e seen in patients with I gG concentrations above 28 g/L. MD StaffordCalcium [id number] 14:04:59 Test Item Value Reference Range Interpretation Comments Calcium Lvl (test code = 5258) 9.0 mg/dL 8.4-10.2 MD [id number] 14:04:58 Test Item Value Reference Range Interpretation Comments ALT (test code = 4705) 12 U/L <=33 MD StaffordElectrolyte [id number] 14:04:57 Test Item Value Reference Range Interpretation Comments Sodium Lvl (test code = 7355) 134 136- 145 mEq/L L Potassium Lvl (test code = 6854) 4.4 3.5- 5.1 mEq/L Chloride (test code = 5279) 99 98- 107 mEq/L CO2 (test code = 5227) 24 22- 29 mEq/L Anion Gap (test code = 9325) 11 4- 14 mEq/L Lab Interpretation (test code = Abnormal 41352-8) MD [id number] 14:04:56 Test Item Value Reference Range Interpretation Comments AST (test code = 4731) 20 U/L <=32 MD Stafford.Serum [id number] 14:04:55 Test Item Value Reference Range Interpretation Comments Creatinine (test code = 5399) 0.96 mg/dL 0.51-0.95 H Lab Interpretation (test code = Abnormal 50952-0) MD StaffordCA [id number] 14:04:54 Test Item Value Reference Range Interpretation Comments CA 125 (test code = 235.4 U/mL <=38.0 H Results greater than 5169) 11,500.0 U/mL m ay not be reliable due to matrix effec t with extended dilution as it exceeds the professor of spanish s recommended l imit. Caution should be exercised when interpreting steel ch values and done in conjunction wit h clinical context.Referen ce intervals are n ot available for m cami patients. Resul ts should be interpreted in conjunction wit h clinical contex t. Lab Interpretation Abnormal (test code = 39686-2) MD [id number] 14:04:52 Test Item Value Reference Range Interpretation Comments BUN (test code = 5055) 14 mg/dL 6-23 MD StaffordGlucose [id number] 14:04:51 Test Item Value Reference Range Interpretation Comments Glucose Level (test code 101 mg/dL 70-99 H Ref erence range is = 5699) valid for fasti ng specimens only. Guidelines established by the [place] Diabet es Association guidelines (Standards of Medical Care in Diabetes 2016. Diabetes Care 2 016; 39: S13-22) are that a fasting gluco se of greater than or equal to 126 mg /dL or a random glu cose greater than or equal to 200 mg /dL with symptoms, that are confirmed b y repeat testing on a different day, meet the criteria fo r diabetes mellit us. Lab Interpretation (test Abnormal code = 59200-0) MD StaffordCalcium Ionized, [id number] 13:34:17 Test Item Value Reference Range Interpretation Comments V Ion Ca (test code = 15277-6) 1.20 mmol/L 1.15-1.29 MD StaffordX-ray Chest 2 [id number] 18:16:47Stable right hydropneumothorax. Interface, Radiology Results In - 07/10/2019 1:19 PM CDTFULL RESUL T:Examination: XR CHEST 2 VW, 07/10/2019 12:39 PMClinical History: Pleural effusion. Ovarian cancer.Indication: Pleural EffusionComparison: 06/26/2019Technique: Posteroanterior, lateral and dual-energy radiographs of the chest.Findings:Right port catheter and pleural catheter are stable. Loculated right hydropneumothorax is unchanged. Right basilar opacities likely representing atelectasis. No new focal lung opacity. Heart and mediastinum are stable.IMPRESSION:Stable right hydropneumothorax.MD StaffordOrthopantogram 2019-05-30 19:20:55This procedure requires no interpretation from the radiologist.MD StaffordBF [id number] 01:38:04 Test Item Value Reference Range Interpretation Comments Final Report (test No growth code = 8488) Path Review (test The results have been code = 8492) reviewed and electronically signed by Pathologist:BOYD HUNTER MD #[id number] Gram Stain Report Many WBC's seenNo (test code = organisms seen. 75712-8) MINERVA (test code = Tube number 3 to MINERVA) Microbiology MD Gonzalez Miscellaneous [id number] 22:50:35 Test Item Value Reference Range Interpretation Comments [facility] Test See Footnote Test Result (test Resul t Flag code = 6385) Unit RefValue------- -------- -------- -------- ---Lactate Dehydrogenase ( LD), 610 U/L See Comment BF ----ACE TIONAL INFORMATION---- -------- ------- Pleu ral fluid lactate dehydrogenase ( LDH) to serum LDH ra chris >0.6 are most consis tent with exudative effusions. Peritoneal flui d LDH > 220 U/L suggest secondary rathe r than spontaneou s bacterial perit onitis in conjunction with other laborator y, imaging, and cl inical findings. Synov ial fluid lactate dehydrogenase ( LDH) may be elevated gre ater than plasma or serum LDH due to infl ammatory causes. Values should be inter preted in conjunction with other clinical findings. All o ther fluids refer to [email or web address] for further interpretive information. Th is test has been mod ified from the lucien guillenurer's instructions. I ts performance characteristics were determined by [facility] in a manner consistent with CLIA requirements. T his test has not been cleared or approved by the U.S. Food and Drug Administration. Fluid Type, Lactate PLEURAL Dehydrogenase Test Performed by: [facility] [address] [place], [place] [address] Caramel Maker: Tato Carrera M.D. Ph.D.; CLIA# [id number] 2 MINERVA (test code LDH, body = MINERVA) fluidtest id: LDBFsource: right pleural MD StaffordTriglyceride Body [id number] 22:14:39 Test Item Value Reference Range Interpretation Comments Trig BF (test code = See Note mg/dL A "Due to a change in 7656) our reference laboratory's te st codes, the curr ent procedure is outdated. We cancelled this procedure and ordered a Miscellaneous Reference Test with the current autumn t code. Your resu lt will post under the Laboratory - Miscellaneous section.This as say has been valida shara for body fluids . No reference range s have been established. Te st results should be interpreted in context of the patient's clini meli condition and i n conjunction wit h similar assays performed on se rum. Pathologist con sult is available. Trig BF Type (test Pleural fluid code = 7657) MINERVA (test code = MINERVA) Tube number 1 to Chemistry Lab Interpretation Abnormal (test code = 00230-1) MD StaffordProtein [id number] 22:14:38 Test Item Value Reference Range Interpretation Comments Protein BF (test code See Note gm/dL A "Due t o a change in = 6891) our reference laboratory's te st codes, the curr ent procedure is outdated. We cancelled this procedure and ordered a Miscellaneous Reference Test with the current autumn t code. Your resu lt will post under the Laboratory - Miscellaneous section.This as say has been valida shara for body fluids . No reference range s have been established. Te st results should be interpreted in context of the patient's clini meli condition and i n conjunction wit h similar assays performed on se rum. Pathologist con sult is available. Prot BF Type (test Pleural fluid code = 6890) MINERVA (test code = MINERVA) Tube 1 to Chemistry Lab Interpretation Abnormal (test code = 00512-0) MD StaffordCholesterol Body [id number] 22:14:37 Test Item Value Reference Range Interpretation Comments Chol BF (test code = See Note mg/dL A "Due to a change in 5284) our reference laboratory's te st codes, the curr ent procedure is outdated. We cancelled this procedure and ordered a Miscellaneous Reference Test with the current autumn t code. Your resu lt will post under the Laboratory - Miscellaneous section.This as say has been valida shara for body fluids . No reference range s have been established. Te st results should be interpreted in context of the patient's clini meli condition and i n conjunction wit h similar assays performed on se rum. Pathologist con sult is available. Chol BF Type (test Pleural fluid code = 5285) MINERVA (test code = MINERVA) Tube number 1 to Chemistry Lab Interpretation Abnormal (test code = 90688-7) MD StaffordAmylase Level Body [id number] 22:14:36 Test Item Value Reference Range Interpretation Comments Amylase BF (test code See Note U/L A "Due t o a change in = 4805) our reference laboratory's te st codes, the curr ent procedure is outdated. We cancelled this procedure and ordered a Miscellaneous Reference Test with the current autumn t code. Your resu lt will post under the Laboratory - Miscellaneous section.This as say has been valida shara for body fluids . No reference range s have been established. Te st results should be interpreted in context of the patient's clini meli condition and i n conjunction wit h similar assays performed on rum. Pathologist con sult is available. Amyl BF Type (test Pleural fluid code = 4804) MINERVA (test code = MINERVA) Tube number 1 to Chemistry Lab Interpretation Abnormal (test code = 78477-8) MD StaffordGlucose Body [id number] 22:14:35 Test Item Value Reference Range Interpretation Comments Glucose BF (test code See Note mg/dL A "Due t o a change in = 5696) our reference laboratory's te st codes, the curr ent procedure is outdated. We cancelled this procedure and ordered a Miscellaneous Reference Test with the current autumn t code. Your resu lt will post under the Laboratory - Miscellaneous section.This as say has been valida shara for body fluids . No reference range s have been established. Te st results should be interpreted in context of the patient's clini meli condition and i n conjunction wit h similar assays performed on se rum. Pathologist con sult is available. Gluc BF Type (test Pleural fluid code = 5693) MINERVA (test code = MINERVA) Tube number 1 to Chemistry Lab Interpretation Abnormal (test code = 99498-2) MD StaffordBody Fluid Diff Path [id number] 19:54:25 Test Item Value Reference Range Interpretation Comments Body Fluid Malignant appearing Diff Interp cells are present (test code = in this sample that RUTH Josue 8754) is contaminated ROBERT NUÑEZ MD - with peripheral 90583Pgoutan d by: blood. Suggest CLAYTON Josue correlation with LOKESH BOWMAN MD - cytology. 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 No reference ranges have bee n established. Te st results should be interpreted in context with th e patient s clinical condition. Pathologist consult is available. Histiocyte BF (test 12 % This ass ay has code = 97108-7) been validat ed for body fluids . No reference ranges have bee n established. Te st results should be interpreted in context with th e patient s clinical condition. Pathologist consult is available. Eos BF (test code = 8 % [place] [address]-3) been validated for body fluids . No reference ranges have bee n established. Te st results should be interpreted in context with th e patient s clinical condition. Pathologist consult is available. Other Cell BF (test 14 % This ass ay has code = 6577) been validated for body fluids . No reference ranges have bee n established. Te st results should be interpreted in context with th e patient s clinical condition. Pathologist consult is available. MINERVA (test code = MINERVA) Tube number 2 to Hematology Lab Interpretation Abnormal (test code = 06124-9) MD StaffordCell Count [id number] 03:56:24 Test Item Value Reference Range Interpretation Comments Type BF (test Pleural, Right code = 05369-9) Appear BF (test BLOODY code = 9335-1) WBC BF (test 644 /mcL This assay has been code = 6743-9) validated for body fluids. No refe rence ranges have bee n established. Te st results should be interpreted in context with th e patient s clinical condition. Pathologist con sult is available. RBC BF (test 71291 /mcL This assay has been code = 6741-3) validated for body fluids. No refe rence ranges have bee n established. Te st results should be interpreted in context with th e patient s clinical condition. Pathologist con sult is available. MINERVA (test code Tube number 2 to = MINERVA) [facility] Post [id number] 19:06:26Interval right-sided pleural drainage catheter with reduction in the magnitude of the effusion which is currently small/moderate in size. No pleural air collection. Follow-up chest radiography is recommended. Interface, Radiology Results In - 05/09/2019 1:08 PM CSTFULL RESULT:Examination: XR CHEST2 VW POST IMPLANT, 05/09/2019 12:48 PMClinical History: Metastatic ovarian carcinoma with pleural effu sionIndication: Status Post ThoracentesisComparison: Chest radiography May 09, 2019Technique: Posteroanterior, lateral and dual-energy radiographs of the chest.Findings: Interval placement of a right sided pleural drainage catheter with interval reduction in the magnitude of the right-sided pleural effusion. It is currently small/moderate in size. No pleural air collections are visualized.Opacityin the right lung base is consistent with a combination of atelectasis and metastatic disease.No effusion is visualized on the left.Heart size is within normal limits. No gross adenopathy is detected.Review of the recent chest CT obtained on May 06, 2019 demonstrates that the right-sided port catheter enters the innominate vein at its confluence with the superior vena cava, explaining the lateralcourse of the catheter. The tip is located in the superior vena cava.IMPRESSION:Interval right-sidedpleural drainage catheter with reduction in the magnitude of the effusion which is currently small/mo derate in size. No pleural air collection. Follow-up chest radiography is recommended.MD StaffordST. [facility] Glucose [id number] 19:50:32 Test Item Value Reference Range Interpretation Comments POC Glucose (test 110 mg/dL 70-99 H RN Notifie dCapillary code = 13275-4) blood sample s, e.g. obtained by fingerstick, ma y have inaccurate resu lts in patients with d ecreased peripheral bloo d flow. PO Sample Type (test Capillary code = 9554) Lab Interpretation Abnormal (test code = 51343-4) MD Patel Chest Pulmonary Embolism with [id number] 13:58:28 1. No evidence of pulmonary embolus.2. Moderate right malignant pleural effusion. No evidence of intrapleural air.3. Patchy right lung opacity may represent expanding atelectasis following thoracentesis versus inflammatory or infectious process. Left lung opacity is compatible with inflammation.4. New lymphadenopathy in the right axilla, mediastinum, right hilum, right cardiophrenic and anterior diaphragmatic spaces suspicious for essence metastatic disease. I personally reviewed the image(s) and the resident's interpretation and agree with the written report. I personally reviewed these image(s) along with the resident's/fellow's interpretations, certify that if a procedure was performed I was physically present, and agree with the final report.Interface, Radiology Results In - 2019 8:00AM CSTFULL RESULT:Examination: CT CHEST PULMONARY EMBOLISM W CONTRAST, 05/06/2019 10:49 PMClinical History: Ovarian cancer diagnosed in 07/26/2017 status post bilateral salpingo-oophorectomy and radical dissection for debulking. Malignant right pleural effusion post thoracentesis 05/06/2019.Indication: D-dimer elevated, cough, dyspnea on exertion, hypoxia, tachypnea. Active cancer treatment or palliationComparison: Chest abdomen pelvis CT 01/10/2019Technique: Spiral CT of the chest is performed using intravenous contrast.FINDINGS: Lines and Tubes: NoneThere is adequate opacification of the pulmonary arterial tree. No evidence of intravascular filling defect to suggest pulmonary embolus. The main pulmonary trunk is normal in diameter.The heart is normal in size without pericardial effusion. The thoracic aorta has normal diameter.Moderate right pleural effusion is increased in volume from the previous study of 01/10/2019. By report, thoracentesis was performed earlier the same day as this study. Right pleural thickening is compatible with metastatic disease.There is patchy opacity in the aerated right lung. Mild ground glass opacities also seen in the left lung. The right lower lobe is partially atelectatic.There is new right axillary adenopathy measuring 30 x 20 mm (image 76, series 2). Mediastinallymph nodes are increased; for reference, a right lower paratracheal node is 15 mm short axis ([id number]). A hilar node is 17 mm (image 123). A node adjacent to the right inferior pulmonary vein is 31 x 20 mm (image 48). There are prominent right cardiophrenic nodes and enlarged right anterior diaphragmatic nodes (image 189).Images through the upper abdomen demonstrate no focal lesion of the liver orspleen. The adrenal glands have normal morphology. There is mild fatty replacement of the pancreatic tail, which can be seen in the setting of diabetes, hyperlipidemia and/or steroid therapy.Degenerative changes are seen in the spine and shoulders. No bone lesion in the thorax.IMPRESSION:1. No evidence of pulmonary embolus.2. Moderate right malignant pleural effusion. No evidence of intrapleural air.3. Patchy right lung opacity may represent expanding atelectasis following thoracentesis versus inflammatory or infectious process. Left lung opacity is compatible with inflammation.4. New lymphadenopathy in the right axilla, mediastinum, right hilum, right cardiophrenic and anterior diaphragmatic spaces suspicious for essence metastatic disease.I personally reviewed the image(s) and the resident's interpretation and agree with the written report. I personally reviewed these image(s) along with the resident's/fellow's interpretations, certify that if a procedure was performed I was physically present,and agree with the final report.MD StaffordPhosphorus [id number] 09:40:47 Test Item Value Reference Range Interpretation Comments Phosphorus (test code = 6817) 3.9 mg/dL 2.5-4.5 MD StaffordX-ray Abdomen 2 View AP W Upright and/or [id number] 19:55:12 1. Large amount of fecal material throughout the colon, possible constipation. 2. No evidence of bowel obstruction. I personally reviewed these image(s) along with the resident's/fellow's interpretations, certify that if a procedure was performed I was physically present, and agree with the final report.Interface, Radiology Results In - 05/06/2019 1:57 PM CSTFULL RESULT:Examination: XR ABDOMEN 2 VWAP W UPRIGHT AND OR DECUBITUS on 05/05/2019 9:53 PMClinical History: Malignant neoplasm of the left ovary.Indication: ConstipationComparison: CT chest abdomen pelvis dated 01/10/2019Technique: XR ABDOMEN2 VW AP W UPRIGHT AND OR DECUBITUSFindings: Nonobstructive bowel gas pattern. Moderate stool burden. Large right-sided pleural effusion, which is better demonstrated on the dedicated chest radiograph.Mild lumbar levoscoliosis. Multilevel degenerative disc disease and mild bilateral hip osteoarthritis are present.IMPRESSION:1. Large amount of fecal material throughout the colon, possible constipation.2. No evidence of bowel obstruction.I personally reviewed these image(s) along with the resident's/fellow's interpretations, certify that if a procedure was performed I was physically present, and agreewith the final report.MD StaffordIR US GUIDED [id number] 18:22:29Date of Procedure: 05/06/19 Attending Physician: Virgilio Fernandez Land Surveyor: None Pre Procedure Diagnosis: Ovarian cancer Post Procedure Diagnosis: Unchanged Indication: Therapeutic Title of Procedure:Percutaneous Image-Guided Thoracentesis and Post Procedure Chest Radiograph. Operative Findings: 1. Percutaneous image-guided right thoracentesis with 1 liters of clear serous fluid removed.2. Thepost procedure chest radiograph shows no pneumothorax and moderate size residual pleural effusion. Consent: The procedure, risks, indications and alternatives were explained. All questions were answered and informed consent was obtained. I have reviewed the history and physical dictated by the mid-level practitioner / fellow. Sedation/Anesthesia: None Procedure in Detail: A time out was performe d prior to the start of the procedure and the correct patient, procedure, presence of consent, site,and side were confirmed with all members of the team. Preliminary imaging was utilized to evaluate the presence and location of fluid and to choose the appropriate access site. The skin overlying the right posterior chest was prepped and draped in the usual sterile fashion. Lidocaine 1% was used for local anesthesia. Under ultrasound imaging-guidance a One Step sheath and needle was used to access the region of interest and the catheter was advanced over the needle into the selected region of fluid. An image was obtained and was stored in the patient's image file. Fluid was removed. The sheath was removed and hemostasis achieved. Chest Radiograph: A single view post-procedure chest radiographwas obtained. Additional Comments: None Estimated Blood Loss: Minimal Specimens Removed: Yes - Palliative drainage only Immediate Complications: None Disposition: PACU Plan: No follow-up with Interventional Radiology required.MD StaffordIR CHEST XRAY 1 [id number] 18:22:29Date of Procedure: 05/06/19 Attending Physician: Virgilio Fernandez Land Surveyor: None Pre Procedure Diagnosis: Ovarian cancer Post Procedure Diagnosis: Unchanged Indication: Therapeutic Title of Procedure:Percutaneous Image-Guided Thoracentesis and Post Procedure Chest Radiograph. Operative Findings: 1. Percutaneous image-guided right thoracentesis with 1 liters of clear serous fluid removed.2. Thepost procedure chest radiograph shows no pneumothorax and moderate size residual pleural effusion. Consent: The procedure, risks, indications and alternatives were explained. All questions were answered and informed consent was obtained. I have reviewed the history and physical dictated by the mid-level practitioner / fellow. Sedation/Anesthesia: None Procedure in Detail: A time out was performed prior to the start of the procedure and the correct patient, procedure, presence of consent, site,and side were confirmed with all members of the team. Preliminary imaging was utilized to evaluate the presence and location of fluid and to choose the appropriate access site. The skin overlying the right posterior chest was prepped and draped in the usual sterile fashion. Lidocaine 1% was used for local anesthesia. Under ultrasound imaging-guidance a One Step sheath and needle was used to access the region of interest and the catheter was advanced over the needle into the selected region of fluid. An image was obtained and was stored in the patient's image file. Fluid was removed. The sheath was removed and hemostasis achieved. Chest Radiograph: A single view post-procedure chest radiographwas obtained. Additional Comments: None Estimated Blood Loss: Minimal Specimens Removed: Yes - Palliative drainage only Immediate Complications: None Disposition: PACU Plan: No follow-up with In terventional Radiology required.MD StaffordPartial Thromboplastin [id number] 04:34:05 Test Item Value Reference Range Interpretation Comments PTT (test code = 90401-9) 33.5 25.5- 37.6 second(s) MD StaffordProthrombin Time with [id number] 04:34:04 Test Item Value Reference Range Interpretation Comments PT (test code = 5902-2) 12.6 11.6- 14.0 second(s) INR (test code = 6301-6) 0.99 0.90-1.10 MD StaffordTtztqilrV-[id number] 04:34:03 Test Item Value Reference Range Interpretation Comments D-Dimer (test code = 2.61 0.10- 0.50 [place] [address]-3) mcg/ml FEU exclusion of ve nous thromboembolism is <0.50 mcg/mL FEUs (fi brinogen equivalent unit s). Lab Interpretation Abnormal (test code = 22395-6) MD StaffordCardiac [id number] 04:24:00 Test Item Value Reference Range Interpretation Comments CK (test code = 59 U/L 20-180 5206) CK MB (test code = 1.4 ng/mL <=5.3 5209) Troponin T (test 14 ng/L <=18 < 19 ng/L code = 9384) Sugg est retest at 3 to 6 hours later to rule o ut myocardial infarction >= 1 9 to <=52 ng/L Possible myocar dial injury. Sugges t retest at 3 hours. - a kim nge of < 20 ng/L, retest at 6 hours - a change of >= 20 ng/L, suggestiv e of myocardial infarction > 52 ng/L Suggestive of m yocardial infarction Crit ical value will be r eported when cTnT isf > 52 ng/L and only report ed for the first in a series. Hemolyzed speci mens with Hemolysis Index >100 (100 mg/dl or m oderate hemolysis) may cause interferences a nd falsely low res ults. MD StaffordNT-Pro BNP (In-House)2019-05-06 04:20:39 Test Item Value Reference Range Interpretation Comments NT ProBNP (test code = 9385) 74 pg/mL <=125 MD StaffordComplete pulmonary function [id number] 00:00:00 Test Item Value Reference Range Interpretation Comments FEV1 (L) pre (test code = 1.897 L 1.578-2.683 9505) FEV1/FVC (%) pre (test code = 79.780 % 66.353-85.941 9509) FVC (L) pre (test code = 2.378 L 2.161-3.467 9507) DLCO_SB ml/(min*mmHg) (test 12.939 15.227- 31.813 L code = 9515) ml/(min*mmHg) RV (L) (test code = 9514) 1.918 L 1.388-2.54 TLC (L) (test code = 9513) 4.383 L 3.585-5.691 RV/TLC (%) (test code = 9517) 43.760 % 32.83-52.01 FVC (% pred) pre (test code = 85 % 9520) FEV1 (%pred) pre (test code = 89 % 9518) FEV1/FVC (% pred) pre (test 105 % code = 9522) TLC (% pred) (test code = 95 % 9526) RV (% pred) (test code = 98 % 9527) RV/TLC (% pred) (test code = 103 % 9528) DLCO_SB (% pred) (test code = 55 % 9529) Lab Interpretation (test code Abnormal = 34717-1) MD StaffordPrepare RBC:ATC Dyson, 2 [id number] 18:28:19 Test Item Value Reference Range Interpretation Comments PRBC Product Ready 2 Red Blood Cells (test code = Available - 40536-9) Order Form 03 when ready for product issue. Unit Number (test [id number] code = 7002) Product Code (test [id number] code = 7003) Unit Expiration [id number] (test code = ) Unit Blood Type 5100 (test code = 7004) Product Code Text RBCIRLR Aph ACDA AS1 (test code = Bag 1 ) Crossmatch [id number] Expiration Date (test code = ) Unit Irradiated IRRADIATED (test code = 993587) Dispense Status ISSUED (test code = 7001) Unit Blood Type O Positive ____ (test code = 7005) _ ____ MD Hager Interpretation Antibody Screen [id number] 18:06:56 Test Item Value Reference Range Interpretation Comments TMP Auto Neg At the present ABSC Interp time, patient (test code = plasma shows no ____ORTIZ GARCIA 7535) evidence of RBC KNOPFELMACHE R alloantibodies. Sylvia MACIASa shara by: ORTIZ MACIAS,Dictated Date/Time: 12.25 13:06 PM CDT Transcribed Tanner e/Time: 01.16.2019 13:0 6 PM CDTElectronical ly Signed By: ORTIZ RAMIREZ, on 01.16.2019 1 3:06 PM MD StaffordTMRaf Interpretation [id number] 18:06:55 Test Item Value Reference Range Interpretation Comments TMP XM Interp RBC units (test code = crossmatched for 7566) transfusion appear ADR QUIQUE GARCIA compatible. SHAKILA MACIAS,Dictated by: ORTIZ MACIAS,Dictated Date/Time: 12.25 13:06 PM CDT Transcribed Tanner e/Time: 01.16.2019 13:0 6 PM CDTElectronical ly Signed By: MARK MACIAS, on 13:06 PM MD StaffordAntibody [id number] 16:45:39 Test Item Value Reference Range Interpretation Comments ABSC. (test code = 890-4) Negative ABSC MD [id number] 16:45:38 Test Item Value Reference Range Interpretation Comments ABORh. (test code = 882-1) O POS MD Rivera Expiration [id number] 16:45:37 Test Item Value Reference Range Interpretation Comments T & S Expiration (test code = 01/19/2019 5318) MD Stafford
--- OUTSIDE RECORDS SUMMARY | 2020-01-15 08:56 | XMS REPORT ---
:1950 Author Organization [employer] Care Team Providers Name Role Phone Jackson, Na Provider Role Unavailable Allergies No Known Allergies Problems Problem Type Condition Code Onset Dates Condition Statu s Problem Malignant neoplasm of right ovary C56.1 Active Problem Controlled type 2 diabetes mellitus E11.9 Active without complication, without long-term current use of insulin Problem Mixed hyperlipidemia E78.2 Active Problem Type 2 diabetes mellitus with [...] of malignant neoplasm to C79.82 Active vagina Assessment Abnormal urine odor R82.90 Active Problem Hypothyroidism, unspecified type E03.9 Active Problem Gout, unspecified cause, unspecified M10.9 Active chronicity, unspecified site Assessment Tinea corporis B35.4 Active Problem HTN (hypertension), benign I10 A ctive Problem Malignant neoplasm of left ovary C56.2 Active Medications Medication Code Code Instructions Start End Status Dosage System Date Date [place] 3 [facility] 62489838545 1000 MG Orally Active 1 cap eric Once a day Minocycline-Acne NDC 0 Active not def ined Care Products [place] 92907390120 10 MG Orally Active 1 tabl et with Three times a food or mi lk day Gabapentin ND 11078023107 300 MG Orally Active 1 c apsule Once a day before bedtime Zejula ND 27702532850 100 MG Orally Active 3 caps ules Once a day Ferrous Sulfate [facility] [address]-97 325 MG Orally Acti ve as directed Triamcinolone ND 70547385815 0.1 % October Active 1 appl ication Acetonide Externally 17, to affected Twice a day 2020 area Furosemide [facility] 07675431155 40 MG Active TAKE 1 TA BLET BY MOUTH ONCE DAILY Magnesium [facility] 84052935020 500 MG Orally Active 1 ta blet with Once a day a meal Pravastatin [facility] 96309657814 80 MG Orally Active 1 t ablet Sodium Once a day Levothyroxine ND 02004459853 100 MCG Active TAKE 1 TABLET Sodium BY MOUTH ONCE DAILY IN THE MORNING ON AN EMPTY STOMACH FOR 90 DAYS Aspirin 81 ND 39481086468 81 MG Orally Active 1 ta blet Once a day Allopurinol ND 09182458168 300 MG Orally Active as directed Ketoconazole [facility] 86837784406 2 % Externally October Active 1 application Twice a day , , to affected 2019 2019 area Metronidazole [facility] 32411856339 0.75 % Active 1 appl ication Externally to affected Twice a day area Avastin [facility] 59886445249 100 MG/4ML Active as direct ed Intravenous Metformin HCl [facility] 50142095037 500 MG Active TAKE 1 TABLET BY MOUTH TWICE DAILY WITH MEALS Duloxetine HCl [facility] 58694401880 30 MG Orally Active 1 capsule Once a day Vitamin D [facility] 64532202157 1000 UNIT Active 1 capsul e (Cholecalciferol Orally Once a ) day Folic Acid [facility] 43935530846 1 MG Orally Active 1 tab let Once a day Results Name Result Date Reference Range Unit Abnormali ty Flag URINALYSIS AUTO W/O SCOPE (71628) ----BRYAN NEG 20191109 ----NIT NEG 20191109 ----PROTEIN 1+ 20191109 ----pH 6.0 20191109 ----GLUCOSE NEG 20191109 ----KETONES NEG 20191109 ----SPECIFIC GRAVITY 1.025 20191109 ----BLO NEG 20191109 Summary Purpose [employer]ClinicalWorks Submission
--- OUTSIDE RECORDS SUMMARY | 2020-01-15 08:57 | XMS REPORT ---
:1950 Author Organization [employer] Care Team Providers Name Role Phone Rebel Shoemaker Provider Role Unavailable Allergies, Adverse Reactions, Alerts Substance Reaction Event Type N.K.D.A. 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, unspecified laterality Assessment Malignant neoplasm of left ovary C56.2 Active Problem HTN (hypertension), benign I10 A ctive Assessment Malignant neoplasm of right ovary C56.1 Active Problem Malignant neoplasm of left ovary C56.2 Active Assessment Anemia, macrocytic D53.9 Active Problem Malignant neoplasm of right ovary C56.1 Active Problem Controlled type 2 diabetes E11.9 A ctive mellitus without complication, without long-term current use of insulin Problem Mixed hyperlipidemia E78.2 Active Problem Type 2 diabetes mellitus with E11.65 Active hyperglycemia, without long-term current use of insulin Problem Thrombocytopenia D69.6 Active Assessment Mixed hyperlipidemia E78.2 Active Assessment Rheumatoid arthritis involving M06.9 Active multiple sites, unspecified rheumatoid factor presence Problem GERD without esophagitis K21.9 Act adrianne Assessment Venous insufficiency I87.2 Active Problem Venous insufficiency I87.2 Active Problem Rheumatoid arthritis involving M06.9 Active multiple sites, unspecified rheumatoid factor presence Problem CKD (chronic kidney disease) stage N18.3 Active 3, GFR 30-59 ml/min Problem 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 Assessment Hypothyroidism, unspecified type E03.9 Active Assessment 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 Assessment HTN (hypertension), benign I10 A ctive Assessment CKD (chronic kidney disease) stage N18.3 Active 3, GFR 30-59 ml/min Problem Hypothyroidism, unspecified type E03.9 Active Problem Gout, unspecified cause, M10.9 Act adrianne unspecified chronicity, unspecified site Assessment Type 2 diabetes mellitus with E11.65 Active hyperglycemia, without long-term current use of insulin Medications Medication Code Code Instructions Start End Status Dosage System Date Date Levothyroxine [facility] 27459311789 100 MCG Orally Active 1 tablet on Sodium Once a day an empty stomach in the morning Furosemide [facility] 65029430459 40 MG Orally Active 1 ta blet Once a day Allopurinol ND 31538538161 300 MG Orally Active as directed Famotidine ND 20638425792 20 MG Orally Active 1 ta blet at Once a day bedtime as needed Levothyroxine [facility] 49328243427 100 MCG Active TAKE 1 TABLET Sodium BY MOUTH ONCE DAILY IN THE MORNING ON AN EMPTY STOMACH FOR 90 DAYS Furosemide [facility] 79435387453 40 MG Active TAKE 1 TA BLET BY MOUTH ONCE DAILY Pravastatin [facility] 56255846841 80 MG Orally Active 1 t ablet Sodium Once a day Metformin HCl [facility] 09451348023 500 MG Active TAKE 1 TABLET BY MOUTH TWICE DAILY WITH MEALS Baclofen [facility] 14966545132 10 MG Orally Active 1 tabl et with Three times a food or mi lk day Ferrous Sulfate [facility] [address]-55 325 MG Orally Acti ve as directed Metronidazole [facility] 40017801101 0.75 % Active 1 appl ication Externally to affected Twice a day area Avastin [facility] 90209460334 100 MG/4ML Active as direct ed Intravenous Magnesium [facility] 43392979518 500 MG Orally Active 1 ta blet with Once a day a meal Gabapentin [facility] 99602854689 300 MG Orally Active 1 c apsule Once a day before bedtime Metformin HCl [facility] 99439605789 500 MG Orally Active take 1 tablet Once a day by mouth twice daily with meals Minocycline-Acne NDC 0 Active not def ined Care Products Folic Acid [facility] 31659503141 1 MG Orally Active 1 tab let Once a day Aspirin 81 ND 14571860473 81 MG Orally Active 1 ta blet Once a day [place] 3 [facility] 60981118499 1000 MG Orally Active 1 cap eric Once a day Vitamin D [facility] 95379637632 1000 UNIT Active 1 capsul e (Cholecalciferol Orally Once a ) day Pravastatin [facility] 98352488036 80 MG Orally Active 1 t ablet Sodium Once a day Duloxetine HCl [facility] 23835780676 30 MG Orally Active 1 capsule Once a day Zejula [facility] 38870129292 100 MG Orally Active 3 caps ules Once a day Triamcinolone [facility] 21483520833 0.1 % October Active 1 appl ication Acetonide Externally 17, to affected Twice a day 2019 area Results No Known Results Summary Purpose eClinicalWorks Submission
[2020-01-15 09:31] LABS: MPV 9.4 fL (7.6-11.3)
[2020-01-15 09:32] LABS: Protime INR 0.97
[2020-01-15 09:40] VITALS: BMI 37.2
[2020-01-15 10:41] LABS: Platelet Estimate ADEQ
--- NOTE | 2020-01-15 12:14 | RAD REPORT ---
EXAM DESCRIPTION: RAD - Chest Single View - 01/15/2020 11:40 am CLINICAL HISTORY: POST OP THORACENTESIS COMPARISON: CT chest April 2019, no recent imaging at this facility. TECHNIQUE: AP portable chest image was obtained 01/15/2020 11:40 am . FINDINGS: Post thoracentesis chest film shows remnant pleural fluid in the right chest. No pneumotho rax is seen. Right-sided Port-A-Cath remains in place. Heart size is stable from prior imaging. Delet e select IMPRESSION: No post thoracentesis pneumothorax.
[2020-01-15 12:34] VITALS: BP 119/79; TEMP 97.6; O2SAT 99
--- NOTE | 2020-01-15 12:50 | RAD REPORT ---
EXAM DESCRIPTION: US - Thoracentesis w/ US Guide - 01/15/2020 10:59 am CLINICAL HISTORY: Recurrent right-side pleural effusion COMPARISON: No recent imaging at this facility, the April 2019 CT chest was reviewed. TECHNIQUE: The patient presents for ultrasound-guided thoracentesis. The procedure, risks and alter natives were discussed with the patient in detail. Oral and written consent were obtained. Time out procedure was performed. The patient had no contraindicated allergy or medication history. PT, INR v alues within acceptable limits. Platelet count within normal limits. Patient is on 81 milligram aspir in therapy. Preliminary sonographic evaluation identified posterolateral lower right chest access site. The skin and deeper tissues were anesthetized with 1 percent lidocaine. Under direct sonographic visualizati on, a thoracentesis catheter was advanced into the pleural cavity. Approximately 700 mL of pleural fl uid removed. The patient began to complain of discomfort at the 700 milliliter volume. Adjustments of the catheter relieved the discomfort the did not result in additional fluid. Catheter was removed. B andage was placed over the puncture site. Postprocedure care and precaution instructions were given to the patient. Patient was returned today surgery for post thoracentesis monitoring. IMPRESSION: Ultrasound-guided right-sided thoracentesis was performed as detailed. Approximately 700 mL of pleural fluid removed.
== END 2020-01-15 12:20 | disposition home or self-care (01) ==
LOC: DS 08:42
PROVIDERS: ATTEND Family Medicine
DX: J90 Pleural effusion, not elsewhere classified (principal)
CPT/HCPCS: 32555; 36415; 71045; 85049; 85610; 85730